=== PATIENT | female | born 1930 | race Caucasian/White ===

== ENCOUNTER 2019-07-30 12:34 | Inpatient (IN) ==
[2019-07-30] MEDS ORDERED: HYDROmorphone INJ 0.5 MG/0.5 ML SYR IV PRN (12:56)
[2019-07-30] MEDS ORDERED: fentaNYL citrate 100 MCG/2 ML VIAL IV STA (12:56)
[2019-07-30 13:26] LABS: Hematocrit (blood only) 35.7 % (37-47); Hemoglobin 11.9 g/dL (12.0-16.0); Mean Corpuscular Hemoglobin 31.1 pg (25-34); Mean Corpuscular Hgb Conc 33.3 g/dL (32-36); Mean Corpuscular Volume 93.2 fL (80-100); Mean Platelet Volume 11.3 fL (7.4-10.4); Platelet Count 152 K/uL (130-400); RDW Standard Deviation 47.8 fL (36.4-46.3); Red Blood Count 3.83 M/uL (4.2-5.4); White Blood Count 6.29 K/uL (4.8-10.8)
[2019-07-30 13:40] LABS: Partial Thromboplastin Time 27.1 Seconds (21.0-31.0); Prothrombin Time 10.7 Seconds (9.0-12.0)
[2019-07-30 13:43] LABS: BUN Creatinine Ratio 27.4 (10-20); Calcium 8.8 mg/dl (8.5-10.1); Creatinine Clr Calc Pharmacy 46.8 ml/min; Est GFR (Non-African American) 78.5; Potassium 3.9 mmol/L (3.5-5.1)
[2019-07-30 13:47] LABS: Basophils # (auto) 0.04 K/uL (0-0.2); Basophils % (auto) 0.6 %; Eosinophils # (auto) 0.35 K/uL (0-0.5); Eosinophils % (auto) 5.6 %; Immature Granulocytes # (auto) 0.05 K/uL (0.00-0.02); Immature Granulocytes % (auto) 0.8 %; Lymphocytes # (auto) 1.01 K/uL (1.2-3.4); Lymphocytes % (auto) 16.1 %; Monocytes # (auto) 0.61 K/uL (0.11-0.59); Monocytes % (auto) 9.7 %; Neutrophils # (auto) 4.23 K/uL (1.4-6.5); Neutrophils % (auto) 67.2 %
--- NOTE | 2019-07-30 14:15 | XRay Report ---
XR hip RT 2V w pelvis CLINICAL HISTORY: fall, right hip pain COMPARISON: None FINDINGS: Sacroiliac joints and symphysis pubis are intact. The bladder may be distended. Note is ma de of an acute displaced right femoral neck fracture, likely subcapital. No proximal left femoral fra cture is noted. No acute pelvic fracture is identified. IMPRESSION: Acute displaced right femoral neck fracture. ACT 112: Negative or not required by law. Electronically signed by: Cosme Roman M.D. 07/30/2019 2:13 PM
--- NOTE | 2019-07-30 14:16 | XRay Report ---
XR chest 1V portable CLINICAL HISTORY: fall, trauma COMPARISON STUDY: No previous studies for comparison. FINDINGS: Lung volumes are normal. Minimal right basilar opacity favors atelectasis. There is no pneu mothorax or pleural effusion. Cardiac size is normal. Mediastinal contours are normal. There is no ev idence for pulmonary edema. Patient is mildly rotated. IMPRESSION: No acute cardiopulmonary findings. ACT 112: Negative or not required by law. Electronically signed by: Cosme Roman M.D. 07/30/2019 2:15 PM
[2019-07-30 14:42] LABS: Appearance Urine Clear (Clear); Bacteria Urine Automated Negative (Negative); Bilirubin Urine Negative (Negative); Blood Urine Negative (Negative); Color Urine Dark Yellow; Epithelial Cell Urine Auto >30 /lpf (0-5); Glucose Urine UA Negative (Negative); Ketones Urine Negative (Negative); Leukocyte Esterase Urine 3+ (Negative); Nitrite Urine Negative (Negative); Protein Urine Negative (Negative); RBC Urine Automated 0-4 /hpf (0-4); Specific Gravity Urine 1.022 (1.000-1.030); Urobilinogen Urine Negative (Negative); WBC Urine Automated >30 /hpf (0-5)
[2019-07-30 15:09] LABS: Renal Epithelial Cells Urine 0-5 /lpf (0-5)
[2019-07-30] MEDS ORDERED: PNEUMOCOCCAL Polysaccharide Vaccine 25mcg/0.5mL vial/Syr IM ONE (15:45)
[2019-07-30] MEDS ORDERED: INFLUENZA Vaccine HIGH DOSE 65+yrs 0.5 mL Syr IM ONE (15:45)
--- NOTE | 2019-07-30 16:01 | History & Physical Report ---
Date of Service July 30, 2019 Assessment & Plan (1) Fracture of right hip: admit to med/surg hip fracture order set bed rest consult ortho - Dr. Sequeira - likely to go OR wednesday or wednesday SCD/TEDS -avoid chemical prophylaxis until surgical intervention date determined, recommend SQ heparin when appropriate APAP QID oxy IR 5mg q4hr prn mod pain/IV morphine 2mg q4hr severe pain incentive spirometry bed rest, MRSA swab, pre op antibiotics ordered NPO after midnight EKG, CXR and lab work reviewed pt w/o history of cardiac dz, + hx of HLD ECG reviewed and unchanged from prior ecg in 2017 no active c/o chest pain Pt is moderate risk for cardio-pulmonary complications andreia/post operatively given underlying dementia, advanced age no medical contraindication to proceed with orthopedic surgery anticipate perioperative/hospital delirium given underlying Alzheimer disorder, one:one observation ordered, Psych consulted for input re: behavioral disturbance Spoke to Antonio who wishes to be contacted from orthopedic surgeon to discuss intervention Cell No apparent advance directive or living will. Discussed code status with who wishes to maintain full code status (2) Major neurocognitive disorder due to Alzheimer's disease, probable, with behavioral disturbance: Recent admission 07/13 to 07/27 to [facility] secondary to Alzheimer's with behavioral disturbance Consult psych Continue Zyprexa, mirtazapine, trazodone IM Haldol 3 mg as needed for severe agitation and behavioral disturbance/combative behavior PRN Lorazepam as needed (3) Hyperlipidemia: on statin in outpt setting hold for now (4) Anxiety: prn lorazepam (5) Primary open angle glaucoma: continue eye gtts (6) DVT prophylaxis: SCD/TEDS Disposition: admit to med/surg, 1:1 ordered with psych precautions given recent admission to [facility] Follow up: PCP Dr. Alexandra upon discharge Pt was seen and examined in collaboration with Dr. Zapata, please see addendum History of Present Illness Chief Complaint: Referred from SNF secondary to complaints of hip pain and inability to transfer. Primary Care Provider: [facility] This is a 88-year-old female with significant past medical history of Alzheimer with behavioral disturbance, anxiety, hyperlipidemia, osteopenia, glaucoma, history of breast CA status post mastectomy who presents to ED from SNF secondary to inability to transfer and complaints of right lower extremity pain. Of significance patient recently hospitalized at [facility] from 07/13 to 07/27 secondary to worsening dementia and combative behavior disturbance. On 07/27/19 she was then transferred to [facility]. Unable to obtain ROS from patient given dementia. According to [facility] there is no noted incident report of fall and facility is unaware of when fracture may have taken place. There is no known fall or hitting of head. According to facility they were having difficulty transferring patient this morning, increased agitation complains of pain and a notable leg length discrepancy with rotation of right leg. She was then referred to ED for further evaluation. In ED right hip x-ray revealed acute displaced right femoral neck fracture. Chest x-ray was negative for any notable abnormality. Further lab work significant for H&H 11.9 and 35.7, WBC 6.29, platelet 152, BUN 18, creatinine 0.67, glucose 110, urinalysis concentrated, +3 leukocyte esterase, negative bacteria. She received IV Dilaudid and fentanyl for pain control. Discussed case with ED provider Dr. Gomes along with orthopedics Dr. Sequeira. Reviewed records in [facility]. Allergies Allergy/AdvReac Type Severity Reaction Status Date / Time alendronate sodium Allergy Unknown Verified 07/30/19 14:46 ibuprofen Allergy Unknown Verified 07/30/19 14:46 simvastatin [From Zocor] Allergy Unknown Verified 07/30/19 14:46 pravastatin [From Pravachol] AdvReac Unknown Verified 07/30/19 14:46 rosuvastatin [From Crestor] AdvReac Unknown Verified 07/30/19 14:46 Home Medications Home Medications Medication Instructions Recorded Confirmed Type acetaminophen [Tylenol] 325 mg PO Q6H PRN 07/30/19 07/30/19 History atorvastatin 10 mg PO HS 07/30/19 07/30/19 History bisacodyl [Dulcolax (bisacodyl)] 10 mg MA DAILY PRN 07/30/19 07/30/19 History latanoprost 1 drp OPB HS 07/30/19 07/30/19 History lorazepam 0.5 mg PO Q6H PRN 07/30/19 07/30/19 History magnesium hydroxide [Milk of 30 ml PO DAILY PRN 07/30/19 07/30/19 History Magnesia] mirtazapine 7.5 mg PO HS 07/30/19 07/30/19 History nabumetone 500 mg PO Q12H PRN 07/30/19 07/30/19 History olanzapine 5 mg PO HS 07/30/19 07/30/19 History olanzapine [Zyprexa] 2.5 mg PO QAM 07/30/19 07/30/19 History sodium phosphates [Enema] 118 ml MA DAILY PRN 07/30/19 07/30/19 History trazodone 50 mg PO HS 07/30/19 07/30/19 History Past Med/Surg History Medical History (Updated 07/30/19 @ 16:12 by Tiesha Le PA-C) Anxiety History of cancer of left breast 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 Hyperlipidemia Major neurocognitive disorder due to Alzheimer's disease, probable, with behavioral disturbance Osteopenia Primary open angle glaucoma Surgical History (Updated 07/30/19 @ 15:52 by Tiesha Le PA-C) History of bilateral mastectomy History of cataract extraction History of tonsillectomy and adenoidectomy History of total abdominal hysterectomy and bilateral salpingo-oophorectomy Family History Other Colorectal cancer Coronary heart disease Social History (Updated 07/30/19 @ 15:56 by Tiesha Le PA-C) Preferred Language: Serbian Communication Ability: Impaired Beliefs That Will Affect Care: None marital status: Current Living Situation: [facility] Current Living Situation Comment: [facility] - new resident as of 07/27/19 - no longer able to care Other Information That Helps Us Care for You: No Feels Safe at Home: Yes Smoking Status: Unknown if ever smoked Hx Alcohol Use: No Hx Substance Use: No Review of Systems Review of Systems: All systems reviewed & are unremarkable except as noted in HPI & below Physical Exam Physical Exam: Constitutional: Thin, petite, elderly, female, very agitated, does not answer questions appropriately, vitals as above, Head: Normocephalic, Atraumatic Eyes: PERRL, conjunctivae normal, anicteric sclerae ENMT: external ear and nose normal, oropharynx normal Neck: trachea midline, no thyromegaly normal visual inspection Respiratory: Poor respiratory effort secondary to patient not following c ommands, lungs clear to auscultation, no wheeze, rales, rhonchi. no accessory muscle use Cardiovascular: Tachycardic rate, regular rhythm, no murmur, no edema Vessels: no JVD or carotid bruit Chest: normal inspection of chest Abdomen: normal bowel sounds, soft, nontender, no hepatosplenomegaly, positive ventral abdominal scar Musculoskeletal: no cyanosis or clubbing, right lower extremity shortened, externally rotated, unable to move right lower extremity, active range of motion to bilateral upper extremities and left lower extremity Skin: no rashes, warm and dry normal turgor Neurologic: PERRL, EOMI, accommodation nl, no face palsy, no dysarthria CN's II-XI intact bilaterally and moves all extremities Psychiatric: A+O to self only, euthymic affect Lymphatic: no cervical or axillary lymphadenopathy : deferred Results & Data Vital Signs (Past 12 Hours) Vital Signs Temp Pulse Resp BP Pulse Ox 07/30/19 15:31 105 H 24 99/71 L 95 07/30/19 15:26 108 H 26 H 137/63 94 07/30/19 14:30 117 H 21 07/30/19 14:01 112 H 25 H 128/53 L 94 07/30/19 14:00 126 H 22 95 07/30/19 13:31 99 H 23 94 07/30/19 13:30 106 H 20 128/43 L 95 07/30/19 13:01 103 H 20 93 07/30/19 13:00 110 H 20 119/69 94 07/30/19 12:48 102 H 22 94 07/30/19 12:40 36.4 C L 110 H 19 154/65 H 95 07/30/19 12:37 111 H 24 154/65 H 94 Laboratory Results Short CBC 07/30/19 Range/Units 13:16 WBC 6.29 (4.8-10.8) K/uL Hgb 11.9 L (12.0-16.0) g/dL Hct 35.7 L (37-47) % Plt Count 152 (130-400) K/uL BMP 07/30/19 13:16 Sodium 138 Potassium 3.9 Chloride 104 Carbon Dioxide 29 BUN 18 Creatinine 0.67 Glucose 110 H Calcium 8.8 Urine 07/30/19 Range/Units 14:17 Urine Color Dark Yellow Urine Appearance Clear (Clear) Urine pH 6.0 (4.5-7.5) Ur Specific [place] 1.022 (1.000-1.030) Urine Protein Negative (Negative) Urine Glucose (UA) Negative (Negative) Diagnostic Findings Hip/pelvis XR: FINDINGS: Sacroiliac joints and symphysis pubis are intact. The bladder may be distended. Note is made of an acute displaced right femoral neck fracture, likely subcapital. No proximal left femoral fracture is noted. No acute pelvic fracture is identified. IMPRESSION: Acute displaced right femoral neck fracture. CXR: IMPRESSION: No acute cardiopulmonary findings. Knee Xray: IMPRESSION: 1. No acute fracture or joint effusion of the right knee. 2. Moderate right knee osteoarthritis Medications Administered Discontinued Medications Fentanyl Citrate (Fentanyl Citrate) 50 mcg IV NOW STA Stop: 07/30/19 12:57 Last Admin: 07/30/19 13:16 Dose: 50 mcg Documented by: [id number] ECG Rate (beats per minute): 96 Rhythm: normal sinus Findings: + 1st degree AV block and + RBBB Comparison ECG Date: from Change: no significant change (01/22/17) Code Status & VTE Plan Code Status Full Code Discussed with VTE Prophylaxis Plan VTE Prophylaxis will be ordered: Yes Supervising Physician Co-Signing Physician Notes Attending Addendum: care coordinated with JOSE Walters please refer to her notes for full details, I agree with her notes patient seen and examined, records reviewed by myself as well on exam, patient seen resting in bed, seen at the bedside for one-to-one observation Awake, alert, irritable, not oriented Speaking with no effort or accessory muscle use Patient is very confused, disorganized thinking Denies pain or any other pain in her body Denies any other symptoms Adamantly refuses to have physical examination performed even with the help of the RECEIVING ROOM CLERK, after multiple times with patient became increasingly angry and threatening no other symptoms VS noted and reviewed oriented x0 , not in distress, speaks in sentences with no effort nor accessory muscle use Patient declined physical exam Abdomen non distended Right lower extremity externally rotated no bipedal edema, erythema Awake, alert, not oriented, no gross focal neurologic deficits otherwise WBC 6.2 Hg 11.9 Crea 0.67 Hip x-ray: IMPRESSION: Acute displaced right femoral neck fracture. ASSESSMENT AND PLAN RIGHT FEMORAL NECK FRACTURE Unknown mechanism leading to fracture Patient hemodynamically stable At least moderate risk for cardiopulmonary complications perioperatively given Alzheimer's dementia, advanced age No medical contraindication to proceed with orthopedic surgery ALZHEIMER'S DEMENTIA Continue usual psych medications Anticipate possible worsening of confusion while admitted Will order outpatient psychiatry consultation [id number] disturbance other diagnoses and plan of care as per JOSE Walters's notes Nitish Zapata MD
--- NOTE | 2019-07-30 16:09 | XRay Report ---
XR knee RT 1 or 2V routine CLINICAL HISTORY: Fall. Right knee pain. COMPARISON: None FINDINGS: Alignment of the right knee is anatomic. No fracture within the distal right tibia, proxim al right fibula or proximal right tibia is noted. There is no joint effusion. There is moderate right knee osteoarthrosis, most pronounced within the lateral compartment. There is mild chondrocalcinosis . IMPRESSION: 1. No acute fracture or joint effusion of the right knee. 2. Moderate right knee osteoarthritis. ACT 112: Negative or not required by law. Electronically signed by: Cosme Roman M.D. 07/30/2019 4:07 PM
[2019-07-30] MEDS ORDERED: HALOPERIDOL LACTATE 5 MG/ML 1 ML VIAL IM PRN (17:38)
[2019-07-30] MEDS ORDERED: NALOXONE HCL 0.4 MG/1 ML VIAL/CARP IV PRN (17:38)
[2019-07-30] MEDS ORDERED: MoRPHine SULFATE 2 MG/ML CARP IV PRN (17:38)
[2019-07-30] MEDS ORDERED: bisacodyL 10 MG SUPP PR PRN (17:38)
[2019-07-30] MEDS ORDERED: MAGNESIUM HYDROXIDE SUSP 30 ML UDC PO PRN (17:38)
[2019-07-30] MEDS ORDERED: OXYCODONE HCL IR 5 MG TAB (IMMEDIATE RELEASE) PO PRN (17:38)
[2019-07-30] MEDS ORDERED: LORazepam 0.5 MG TAB PO PRN (17:38)
[2019-07-30] MEDS ORDERED: ONDANSETRON INJ 2 MG/ML 2 ML VIAL IV PRN (17:38)
--- NOTE | 2019-07-30 18:02 | Emergency Department Note ---
Entered by Rosangela Rasmussen acting as a scribe for ED Provider Note Name: YULI LONG Age: 88 Arrives Via: Ambulance Informant: Patient CC: Hip pain HPI: 88F arrives for evaluation of hip pain. She was brought to the ED via EMS from the [facility]. She fell and staff at the [facility] think she broke her right hip. She is demented and denies any symptoms. She is unhappy she is here though does not know where she is. No medications prior to arrival. Patient with report "hairline" fracture of hip previously. She reportedly did not strike head nor injury other. ROS: See above HPI for pertinent positives & negatives. Patient demented and unable to give adequate ROS Past Medical History:Anxiety, Dementia/Alzheimer's, DLP, Glaucoma Past Surgical History:Unknown due to dementia Family History:Unknown due to dementia Social History:Lives in intermediate, no etoh/smoking, retired, no further available Home Medications:See Below Allergies:See Below Vitals:BP is 154/65, Pulse is 110, R 16, O2 94%, Temperature is 97.5 Physical Exam: GENERAL: Patient is demented, angry, fighting against examination. EYES: No scleral icterus, unremarkable pupils. ENT: Mucous membranes moist, no nasal congestion. NECK: No masses appreciated, nomeningismus, trachea is midline. RESPIRATORY: No dyspnea. Clear to auscultation and equal bilaterally. No wheeze, no rhonchi. CARDIOVASCULAR: Regular rate and rhythm.No murmurs, rubs, gallops appreciated. GASTROINTESTINAL: Abdomen soft, non-tender, no peritonitis.Bowel sounds positive.No masses appreciated. BACK: No midline tenderness, no CVA tenderness EXTREMITIES: Right leg is shortened and externally rotated, severe pain with ROM of the right hip, pulses intact. NEUROLOGIC: Alert and oriented, no acute motor or sensory deficits, no focal weakness, cranial nerves grossly intact. SKIN: No rash, no jaundice, no diaphoresis. ED Course: Prior Medical Record, Triage/Nursing Notes, Medications, Allergies reviewed by Me Vital Signs: reviewed and remarkable for Tachy Labs:Reviewed and remarkable for no significant abnormalities Interventions: saline lock, fentanyl 50mcg IV Imaging:See Below EKG: Per My Interpretation: Indication Pre-Op: NSR 98 bpm with 1st av block, qtc 464. No Ectopy. No Ischemia. RBBB noted. No previous for comparison. Reassessments/Times: 1252: The patient was evaluated in room C4. A complete history and physical were performed. 1431: I discussed the patients case with Tiesha Le PA-C, [facility] Hospitalist. The patient will be further evaluated. The admitting physician is Dr. Zapata. Blood pressure:Low Disposition:Further evaluation by hospitalist. Prescriptions:None. Differentials: Etiologies such as fracture, dislocation, neurovascular compromise, compartment syndrome, soft tissue injury, as well as others were entertained. Medical Decision Makin yr old female arrives for evaluation of right hip injury s/p fall at intermediate. No report of head neck injury nor LOC. She is demented and angry but feeling better after Fentanyl. Imaging with right hip fracture. Labs unremarkable. EKG with RBBB and 1st av block though no previous for comparison. She is in no distress after fentanyl and not moving leg. She will come in to hospitalists who will consult Ortho. Impression: Right hip fracture Combative behavior Dementia. The scribe's documentation has been prepared under my direction and personally reviewed by me in its entirety. I confirm that the note above accurately reflects all work, treatment, procedures, and medical decision making performed by me. 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 Hyperlipidemia Major neurocognitive disorder due to Alzheimer's disease, probable, with behavioral disturbance Osteopenia Primary open angle glaucoma Surgical History (Updated 07/30/19 @ 15:52 by Tiesha Le PA-C) History of bilateral mastectomy History of cataract extraction History of tonsillectomy and adenoidectomy History of total abdominal hysterectomy and bilateral salpingo-oophorectomy Family History Other Colorectal cancer Coronary heart disease Social History (Updated 07/30/19 @ 15:56 by Tiesha Le PA-C) Preferred Language: Salvadorean Communication Ability: Impaired Beliefs That Will Affect Care: None marital status: Current Living Situation: [facility] Current Living Situation Comment: [facility] - new resident as of 07/27/19 - no longer able to care Other Information That Helps Us Care for You: No Feels Safe at Home: Yes Smoking Status: Unknown if ever smoked Hx Alcohol Use: No Hx Substance Use: No Results & Data Vital Signs Vital Signs - 24 hr 07/30/19 12:37 07/30/19 12:40 07/30/19 12:48 Temperature 36.4 C L Temperature Source Oral Pulse Rate 111 H 110 H 102 H Pulse Rate from SpO2 Sensor 112 H 103 H Pulse Rhythm Regular Pulse Strength Normal Respiratory Rate 24 19 22 Respiratory Effort / Characteristics Non-Labored Respiratory Depth Normal Respiratory Pattern Regular Blood Pressure 154/65 H 154/65 H Blood Pressure Mean 91 94 Blood Pressure Position Sitting Pulse Oximetry 94 95 94 Oxygen Delivery Method Room Air Sepsis Recent Fever Within 48 Hours No Sepsis Action Taken by Nursing No Action Required 07/30/19 13:00 07/30/19 13:01 07/30/19 13:30 Temperature Temperature Source Pulse Rate 110 H 103 H 106 H Pulse Rate from SpO2 Sensor 110 H 103 H 106 H Pulse Rhythm Pulse Strength Respiratory Rate 20 20 20 Respiratory Effort / Characteristics Respiratory Depth Respiratory Pattern Blood Pressure 119/69 128/43 L Blood Pressure Mean 75 79 Blood Pressure Position Pulse Oximetry 94 93 95 Oxygen Delivery Method Sepsis Recent Fever Within 48 Hours Sepsis Action Taken by Nursing 07/30/19 13:31 07/30/19 14:00 07/30/19 14:01 Temperature Temperature Source Pulse Rate 99 H 126 H 112 H Pulse Rate from SpO2 Sensor 101 H 106 H 109 H Pulse Rhythm Pulse Strength Respiratory Rate 23 22 25 H Respiratory Effort / Characteristics Respiratory Depth Respiratory Pattern Blood Pressure 128/53 L Blood Pressure Mean 71 Blood Pressure Position Pulse Oximetry 94 95 94 Oxygen Delivery Method Sepsis Recent Fever Within 48 Hours Sepsis Action Taken by Nursing 07/30/19 14:30 07/30/19 15:26 07/30/19 15:31 Temperature Temperature Source Pulse Rate 117 H 108 H 105 H Pulse Rate from SpO2 Sensor 110 H 107 H 105 H Pulse Rhythm Pulse Strength Respiratory Rate 21 26 H 24 Respiratory Effort / Characteristics Respiratory Depth Respiratory Pattern Blood Pressure 137/63 99/71 L Blood Pressure Mean 91 76 Blood Pressure Position Pulse Oximetry 94 95 Oxygen Delivery Method Room Air Room Air Sepsis Recent Fever Within 48 Hours Sepsis Action Taken by [facility] Medications Current Medication List: was personally reviewed by me Laboratory Data Attestation: I reviewed the patient's lab results. Result diagrams: 07/30/19 13:16 07/30/19 13:16 Lab Results 07/30/19 07/30/19 07/30/19 Range/Units 13:16 13:16 13:16 WBC 6.29 (4.8-10.8) K/uL RBC 3.83 L (4.2-5.4) M/uL Hgb 11.9 L (12.0-16.0) g/dL Hct 35.7 L (37-47) % MCV 93.2 (80-100) fL MCH 31.1 (25-34) pg MCHC 33.3 (32-36) g/dL RDW Std Deviation 47.8 H (36.4-46.3) fL RDW Coeff of Peggy 14.0 (11.5-14.5) % Plt Count 152 (130-400) K/uL MPV 11.3 H (7.4-10.4) fL Immature Gran % (Auto) 0.8 % Neut % (Auto) 67.2 % Lymph % (Auto) 16.1 % [place] % (Auto) 9.7 % Eos % (Auto) 5.6 % Baso % (Auto) 0.6 % Immature Gran # (Auto) 0.05 H (0.00-0.02) K/uL Neut # (Auto) 4.23 (1.4-6.5) K/uL Lymph # (Auto) 1.01 L (1.2-3.4) K/uL [place] # (Auto) 0.61 H (0.11-0.59) K/uL Eos # (Auto) 0.35 (0-0.5) K/uL Baso # (Auto) 0.04 (0-0.2) K/uL PT 10.7 (9.0-12.0) Seconds INR 1.0 (0.9-1.1) APTT 27.1 (21.0-31.0) Seconds PTT Ratio 1.0 Sodium 138 (136-145) mmol/L Potassium 3.9 (3.5-5.1) mmol/L Chloride 104 (98-107) mmol/L Carbon Dioxide 29 (21-32) mmol/L Anion Gap 5.0 (3-11) BUN 18 (7-18) mg/dl Creatinine 0.67 (0.6-1.2) mg/dl Est Cr Clr Drug Dosing 46.8 ml/min Est GFR ( Amer) 91.0 Est GFR (Non-Af Amer) 78.5 BUN/Creatinine Ratio 27.4 H (10-20) Glucose 110 H (70-99) mg/dl Calcium 8.8 (8.5-10.1) mg/dl Urine Color Urine Appearance (Clear) Urine pH (4.5-7.5) Ur Specific [place] (1.000-1.030) Urine Protein (Negative) Urine Glucose (UA) (Negative) Urine Ketones (Negative) Urine Blood (Negative) Urine Nitrite (Negative) Urine Bilirubin (Negative) Urine Urobilinogen (Negative) Ur Leukocyte Esterase (Negative) Urine WBC (Auto) (0-5) /hpf Urine RBC (Auto) (0-4) /hpf U Hyaline Cast (Auto) (0-5) /lpf U Epithel Cells (Auto) (0-5) /lpf Urine Bacteria (Auto) (Negative) Ur Renal Epithelial Cell (0-5) /lpf Blood Type Antibody Screen 07/30/19 07/30/19 07/30/19 Range/Units 13:53 14:17 14:37 WBC (4.8-10.8) K/uL RBC (4.2-5.4) M/uL Hgb (12.0-16.0) g/dL Hct (37-47) % MCV (80-100) fL MCH (25-34) pg MCHC (32-36) g/dL RDW Std Deviation (36.4-46.3) fL RDW Coeff of Peggy (11.5-14.5) % Plt Count (130-400) K/uL MPV (7.4-10.4) fL Immature Gran % (Auto) % Neut % (Auto) % Lymph % (Auto) % [place] % (Auto) % Eos % (Auto) % Baso % (Auto) % Immature Gran # (Auto) (0.00-0.02) K/uL Neut # (Auto) (1.4-6.5) K/uL Lymph # (Auto) (1.2-3.4) K/uL [place] # (Auto) (0.11-0.59) K/uL Eos # (Auto) (0-0.5) K/uL Baso # (Auto) (0-0.2) K/uL PT (9.0-12.0) Seconds INR (0.9-1.1) APTT (21.0-31.0) Seconds PTT Ratio Sodium (136-145) mmol/L Potassium (3.5-5.1) mmol/L Chloride (98-107) mmol/L Carbon Dioxide (21-32) mmol/L Anion Gap (3-11) BUN (7-18) mg/dl Creatinine (0.6-1.2) mg/dl Est Cr Clr Drug Dosing ml/min Est GFR ( Amer) Est GFR (Non-Af Amer) BUN/Creatinine Ratio (10-20) Glucose (70-99) mg/dl Calcium (8.5-10.1) mg/dl Urine Color Dark Yellow Urine Appearance Clear (Clear) Urine pH 6.0 (4.5-7.5) Ur Specific [place] 1.022 (1.000-1.030) Urine Protein Negative (Negative) Urine Glucose (UA) Negative (Negative) Urine Ketones Negative (Negative) Urine Blood Negative (Negative) Urine Nitrite Negative (Negative) Urine Bilirubin Negative (Negative) Urine Urobilinogen Negative (Negative) Ur Leukocyte Esterase 3+ H (Negative) Urine WBC (Auto) >30 H (0-5) /hpf Urine RBC (Auto) 0-4 (0-4) /hpf U Hyaline Cast (Auto) 1-5 (0-5) /lpf U Epithel Cells (Auto) >30 H (0-5) /lpf Urine Bacteria (Auto) Negative (Negative) Ur Renal Epithelial Cell 0-5 (0-5) /lpf Blood Type Cancelled O Positive Antibody Screen Cancelled NEGATIVE Administered Medications Discontinued Medications Fentanyl Citrate (Fentanyl Citrate) 50 mcg IV NOW STA Stop: 07/30/19 12:57 Last Admin: 07/30/19 13:16 Dose: 50 mcg Documented by: [id number] Imaging Data Radiologist's Impression: Radiology results as stated below per my review and the radiologist's interpretation: XR hip RT 2V w pelvis CLINICAL HISTORY: fall, right hip pain COMPARISON: None FINDINGS: Sacroiliac joints and symphysis pubis are intact. The bladder may be distended. Note is made of an acute displaced right femoral neck fracture, likely subcapital. No proximal left femoral fracture is noted. No acute pelvic fracture is identified. IMPRESSION: Acute displaced right femoral neck fracture. ACT 112: Negative or not required by law. Electronically signed by: Cosme Roman M.D. 07/30/2019 2:13 PM XR chest 1V portable CLINICAL HISTORY: fall, trauma COMPARISON STUDY: No previous studies for comparison. FINDINGS: Lung volumes are normal. Minimal right basilar opacity favors atelectasis. There is no pneumothorax or pleural effusion. Cardiac size is normal. Mediastinal contours are normal. There is no evidence for pulmonary edema. Patient is mildly rotated. IMPRESSION: No acute cardiopulmonary findings. ACT 112: Negative or not required by law. Electronically signed by: Cosme Roman M.D. 07/30/2019 2:15 PM Blood Pressure Blood Pressure Findings: Low blood pressure Discharge Plan Visit Data *Final* Discharge Date/Time: 07/30/19 17:06 Chief Complaint: Hip Pain Stated Complaint: L hip & leg pain ED Provider: Will Augustine Discharge Problem: Fracture of right hip, Combative behavior, Dementia Patient Disposition: Admitted As Inpatient Discharge Instructions Interventions: ED Discharge Assessment Last Done: 07/30/19 17:06 The scribe's documentation has been prepared under my direction and personally reviewed by me in its entirety. I confirm that the note above accurately reflects all work, treatment, procedures, and medical decision making performed by me.
[2019-07-30] MEDS: LACTATED RINGER'S 1,000 ML IV SCH (18:48)
[2019-07-30] MEDS: ACETAMINOPHEN 325 MG TAB PO SCH ×2 (18:49→21:35)
[2019-07-30] MEDS: TRAZODONE HCL 50 MG TAB PO SCH (21:35)
[2019-07-30] MEDS: MIRTAZAPINE TAB 15 MG TAB PO SCH (21:36)
[2019-07-30] MEDS: DOCUSATE SODIUM/SENNA 50/8.6MG TAB PO SCH (21:36)
[2019-07-30] MEDS: LATANOPROST 0.005% OP SOLN 2.5 ML BTL OPB SCH (21:37)
[2019-07-30] MEDS: OLANZapine 5 MG TABLET PO SCH (21:37)
[2019-07-31 05:47] LABS: Basophils # (auto) 0.03 K/uL (0-0.2); Basophils % (auto) 0.6 %; Eosinophils # (auto) 0.29 K/uL (0-0.5); Eosinophils % (auto) 5.6 %; Hematocrit (blood only) 32.8 % (37-47); Hemoglobin 10.7 g/dL (12.0-16.0); Immature Granulocytes # (auto) 0.06 K/uL (0.00-0.02); Immature Granulocytes % (auto) 1.2 %; Lymphocytes # (auto) 0.84 K/uL (1.2-3.4); Lymphocytes % (auto) 16.2 %; Mean Corpuscular Hemoglobin 30.8 pg (25-34); Mean Corpuscular Hgb Conc 32.6 g/dL (32-36); Mean Corpuscular Volume 94.5 fL (80-100); Mean Platelet Volume 11.2 fL (7.4-10.4); Monocytes % (auto) 13.5 %; Neutrophils # (auto) 3.27 K/uL (1.4-6.5); Neutrophils % (auto) 62.9 %; Platelet Count 160 K/uL (130-400); RDW Coefficient of Variation 13.9 % (11.5-14.5); RDW Standard Deviation 47.7 fL (36.4-46.3); Red Blood Count 3.47 M/uL (4.2-5.4); White Blood Count 5.19 K/uL (4.8-10.8)
[2019-07-31] MEDS ORDERED: CEFAZOLIN 2000MG 2,000 MG/15 ML SYR IV SCH (06:00)
[2019-07-31 06:16] LABS: BUN Creatinine Ratio 44.4 (10-20); Calcium 8.6 mg/dl (8.5-10.1); Creatinine Clr Calc Pharmacy 53.2 ml/min; Est GFR (African American) 94.8; Est GFR (Non-African American) 81.8; Potassium 3.4 mmol/L (3.5-5.1)
[2019-07-31] MEDS: LACTATED RINGER'S 1,000 ML IV SCH ×2 (10:41→22:34)
[2019-07-31] MEDS: ACETAMINOPHEN 325 MG TAB PO SCH ×4 (10:42→23:11)
[2019-07-31] MEDS: OLANZAPINE 2.5 MG TAB PO SCH (10:42)
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
[2019-07-31] MEDS ORDERED: ATROPINE SULFATE 0.1 MG/ML 10ML SYR IV PRN (16:33)
[2019-07-31] MEDS ORDERED: fentaNYL citrate 100 MCG/2 ML VIAL IV PRN (16:33)
[2019-07-31] MEDS ORDERED: ONDANSETRON INJ 2 MG/ML 2 ML VIAL IV PRN (16:33)
[2019-07-31] MEDS ORDERED: ePHEDrine sulfate 50 MG/ML AMP IV PRN (16:33)
--- NOTE | 2019-07-31 16:37 | Anesthesiology Consultation ---
Date of Service July 31, 2019 Assessment & Plan (1) Encounter for pre-operative examination: Chart Review Chart Review: Acceptable Risk for Surgery and Patient NOT seen in Pre Admission Testing Consults Requested none History Surgery Operation Date: 07/31/19 14:00 Proposed Procedures p Right Hip Hemiarthroplasty - Pedro Sequeira DO Height/Weight Height: 5 ft 3 in Weight: 51.1 kg Allergies Allergy/AdvReac Type Severity Reaction Status Date / Time alendronate sodium Allergy Unknown Verified 07/30/19 14:46 ibuprofen Allergy Unknown Verified 07/30/19 14:46 simvastatin [From Zocor] Allergy Unknown Verified 07/30/19 14:46 pravastatin [From Pravachol] AdvReac Unknown Verified 07/30/19 14:46 rosuvastatin [From Crestor] AdvReac Unknown Verified 07/30/19 14:46 Medications Home Medications Medication Instructions Recorded Confirmed Last Taken acetaminophen [Tylenol] 325 mg PO Q6H PRN 07/30/19 07/30/19 07/30/19 10:00 atorvastatin 10 mg PO HS 07/30/19 07/31/19 07/29/19 21:00 bisacodyl [Dulcolax (bisacodyl)] 10 mg [place] DAILY PRN 07/30/19 07/30/19 07/29/19 16:30 latanoprost 1 drp OPB HS 07/30/19 07/31/19 07/29/19 21:00 lorazepam 0.5 mg PO Q6H PRN 07/30/19 07/31/19 Unknown magnesium hydroxide [Milk of 30 ml PO DAILY PRN 07/30/19 07/31/19 07/29/19 08:45 Magnesia] mirtazapine 7.5 mg PO HS 07/30/19 07/31/19 07/29/19 20:00 nabumetone 500 mg PO Q12H PRN 07/30/19 07/31/19 07/30/19 09:15 olanzapine 5 mg PO HS 07/30/19 07/31/19 Unknown olanzapine [Zyprexa] 2.5 mg PO QAM 07/30/19 07/31/19 07/30/19 09:00 2.5mg sodium phosphates [Enema] 118 ml [place] DAILY PRN 07/30/19 07/30/19 07/30/19 10:23 trazodone 50 mg PO HS 07/30/19 07/31/19 07/29/19 20:00 Active Medications Generic Name Dose Route Start Last Admin Trade Name Fabian PRN Reason Stop Dose Admin Acetaminophen 650 mg 07/30/19 17:38 07/31/19 17:52 Tylenol PO 08/29/19 17:37 650 mg QID [facility] Administration Lactated Ringer's 1,000 mls @ 100 mls/hr 07/30/19 15:32 07/31/19 15:00 Lr IV 08/29/19 15:31 100 mls/hr .Q10H [facility] Infusion Latanoprost 1 drops 07/30/19 21:00 07/30/19 21:37 Xalatan Oph OPB 08/29/19 20:59 1 drops HS [facility] Administration Mirtazapine 7.5 mg 07/30/19 21:00 07/30/19 21:36 Remeron PO 08/29/19 20:59 7.5 mg HS STORMY Administration Olanzapine 2.5 mg 07/31/19 09:00 07/31/19 10:42 Zyprexa PO 08/30/19 08:59 2.5 mg QAM STORMY Administration Olanzapine 5 mg 07/30/19 21:00 07/30/19 21:37 Zyprexa PO 08/29/19 20:59 5 mg HS STORMY Administration Senna/Docusate Sodium 2 tab 07/30/19 21:00 07/30/19 21:36 Senokot S PO 08/29/19 20:59 2 tab HS ST[facility]MY Administration Trazodone HCl 50 mg 07/30/19 21:00 07/30/19 21:35 Desyrel PO 08/29/19 20:59 50 mg HS ST[facility]MY Administration Past Medical History Medical History Anxiety History of cancer of left breast 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 Hyperlipidemia Major neurocognitive disorder due to Alzheimer's disease, probable, with behavioral disturbance Osteopenia Primary open angle glaucoma Exercise / Class Metabolic Activity III < 4 Walking/Shop/Light housework Past Family History Family History Other Colorectal cancer Coronary heart disease Past Surgical History Surgical History History of bilateral mastectomy History of cataract extraction History of tonsillectomy and adenoidectomy History of total abdominal hysterectomy and bilateral salpingo-oophorectomy Past Anesthesia History No Hx of Anesthesia Complications and No Family Hx of Anesthesia Complications History of PONV No Hx of PONV and No Hx of Motion Sickness Social History Smoking Status: Unknown if ever smoked Do You Dip or Chew Tobacco: No Hx Alcohol Use: No Hx Substance Use: No Physical Exam Vital Signs Last Vital Signs Temp 37.3 C 07/31/19 18:13 Pulse 98 H 07/31/19 18:13 Resp 25 H 07/31/19 18:13 BP 124/48 L 07/31/19 18:13 Pulse Ox 93 07/31/19 18:13 Testing Laboratory Results 07/31/19 05:24 07/31/19 05:24 PT 10.7 Seconds (9.0-12.0) 07/30/19 13:16 INR 1.0 (0.9-1.1) 07/30/19 13:16 APTT 27.1 Seconds (21.0-31.0) 07/30/19 13:16 Urine Color Dark Yellow 07/30/19 14:17 Urine Appearance Clear (Clear) 07/30/19 14:17 Urine pH 6.0 (4.5-7.5) 07/30/19 14:17 Ur Specific [place] 1.022 (1.000-1.030) 07/30/19 14:17 Urine Protein Negative (Negative) 07/30/19 14:17 Urine Glucose (UA) Negative (Negative) 07/30/19 14:17 Urine Ketones Negative (Negative) 07/30/19 14:17 Urine Nitrite Negative (Negative) 07/30/19 14:17 Ur Leukocyte Esterase 3+ (Negative) H 07/30/19 14:17 Urine WBC (Auto) >30 /hpf (0-5) H 07/30/19 14:17 Urine RBC (Auto) 0-4 /hpf (0-4) 07/30/19 14:17 U Hyaline Cast (Auto) 1-5 /lpf (0-5) 07/30/19 14:17 U Epithel Cells (Auto) >30 /lpf (0-5) H 07/30/19 14:17 Urine Bacteria (Auto) Negative (Negative) 07/30/19 14:17 Blood Type O Positive 07/30/19 14:37 Antibody Screen NEGATIVE 07/30/19 14:37 07/30/19 14:17 Urine Culture - Preliminary Urine,Indwelling Cath Gram negative bacilli Electrocardiogram Findings: + NSR @ (98) Sinus rhythm with 1st degree A-V block Right bundle branch block Abnormal ECG When compared with ECG of 30-JUL-2019 13:10, (unconfirmed) T wave inversion less evident in Anterior leads Chest X-Ray Date: 07/30/19 XR chest 1V portable CLINICAL HISTORY: fall, trauma COMPARISON STUDY: No previous studies for comparison. FINDINGS: Lung volumes are normal. Minimal right basilar opacity favors atelectasis. There is no pneumothorax or pleural effusion. Cardiac size is normal. Mediastinal contours are normal. There is no evidence for pulmonary edema. Patient is mildly rotated. IMPRESSION: No acute cardiopulmonary findings.
--- NOTE | 2019-07-31 17:05 | Hospitalist Progress Note ---
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 Sequeira -awaiting recommendations Heparin subcu twice daily, SCDs for DVT prophylaxis Pt is moderate risk for cardio-pulmonary complications andreia/post operatively given underlying dementia, advanced age no medical contraindication to proceed with orthopedic surgery anticipate perioperative/hospital delirium given underlying Alzheimer disorder, one:one observation ordered, Psych consulted for input re: behavioral disturbance Discussed with patient's Antonio who wishes to be contacted from orthopedic surgeon to discuss intervention Cell No apparent advance directive or living will. Discussed code status with who wishes to maintain full code status (2) Major neurocognitive disorder due to Alzheimer's disease, probable, with behavioral disturbance: Recent admission 07/13 to 07/27 to [facility] secondary to Alzheimer's with behavioral disturbance Consulted psych Continue Zyprexa, mirtazapine, trazodone IM Haldol 3 mg as needed for severe agitation and behavioral disturbance/combative behavior PRN Lorazepam as needed --Calm, cooperative this afternoon, at baseline mental status per patient's (3) Hyperlipidemia: on statin in outpt setting hold for now (4) Anxiety: prn lorazepam (5) Primary open angle glaucoma: continue eye gtts (6) DVT prophylaxis: SCD/TEDS Disposition: admit to med/surg, 1:1 ordered with psych precautions given recent admission to [facility] Follow up: PCP Dr. Alexandra upon discharge Subjective ff up for right femoral fracture Seen with patient's at the bedside, visiting Alert, awake, sitting up in bed, calm and cooperative Pleasantly confused but does know she is at [employer] and can state her 's name Does not recall any recent injury Denies hip pain or any pain in her body Denies chest pain, shortness of breath, palpitations, dizziness, even outside hospital No other symptoms Review of Systems Review of Systems: All systems reviewed & are unremarkable except as noted in HPI & below Physical Exam Physical Exam: General- oriented x 1, not in distress, speaks in sentences with no effort or accessory muscle use Eyes- anicteric Neck- no JVD Lungs- clear breath sounds bilaterally, no rales/wheezes Heart- normal rate, regular rhythm; no murmurs Abdomen- normal bowel sounds, nondistended, soft, nontender Extremities- no pretibial edema, no calf tenderness Right hip moderate edema, no tenderness, no hematoma Neuro- alert, oriented x 1; no new gross focal neurologic deficits Skin- warm & dry Results & Data Vital Signs (Past 12 Hours) Vital Signs Temp Pulse Resp BP Pulse Ox 07/31/19 15:51 37.0 C 96 H 16 108/62 92 07/31/19 08:00 107 H 15 119/74 92 Laboratory Results Laboratory Results - last 24 hr 07/30/19 07/31/19 07/31/19 18:00 05:24 05:24 WBC 5.19 RBC 3.47 L Hgb 10.7 L Hct 32.8 L MCV 94.5 MCH 30.8 MCHC 32.6 RDW Std Deviation 47.7 H RDW Coeff of Peggy 13.9 Plt Count 160 MPV 11.2 H Immature Gran % (Auto) 1.2 Neut % (Auto) 62.9 Lymph % (Auto) 16.2 Kings % (Auto) 13.5 Eos % (Auto) 5.6 Baso % (Auto) 0.6 Immature Gran # (Auto) 0.06 H Neut # (Auto) 3.27 Lymph # (Auto) 0.84 L Kings # (Auto) 0.70 H Eos # (Auto) 0.29 Baso # (Auto) 0.03 Sodium 140 Potassium 3.4 L Chloride 105 Carbon Dioxide 28 Anion Gap 7.0 BUN 26 H Creatinine 0.59 L Est Cr Clr Drug Dosing 53.2 Est GFR ( Amer) 94.8 Est GFR (Non-Af Amer) 81.8 BUN/Creatinine Ratio 44.4 H Glucose 87 Calcium 8.6 25-OH Vitamin D Total Nasal Screen MRSA (PCR) Negative 07/31/19 05:24 WBC RBC Hgb Hct MCV MCH MCHC RDW Std Deviation RDW Coeff of Peggy Plt Count MPV Immature Gran % (Auto) Neut % (Auto) Lymph % (Auto) Kings % (Auto) Eos % (Auto) Baso % (Auto) Immature Gran # (Auto) Neut # (Auto) Lymph # (Auto) Kings # (Auto) Eos # (Auto) Baso # (Auto) Sodium Potassium Chloride Carbon Dioxide Anion Gap BUN Creatinine Est Cr Clr Drug Dosing Est GFR ( Amer) Est GFR (Non-Af Amer) BUN/Creatinine Ratio Glucose Calcium 25-OH Vitamin D Total 27.2 L Nasal Screen MRSA (PCR)
[2019-07-31] MEDS ORDERED: BUPIVACAINE 0.5 % 5 MG/1 ML PF 10ML VIAL ONE (17:09)
[2019-07-31] MEDS ORDERED: ORTHO JOINT ANESTHETIC ONE (17:53)
[2019-07-31] MEDS ORDERED: BACITRACIN INJ 50,000 UNIT VIAL ONE (17:53)
--- NOTE | 2019-07-31 18:04 | History & Physical Bridge Note ---
Date of Service July 31, 2019 History & Physical Bridge Note I have examined the patient, reviewed the History & Physical and in the interval since the performance of the History & Physical I have noted the following changes of clinical significance: Will require right hip hemiarthroplasty today. NPO. Consent on chart.
--- NOTE | 2019-07-31 18:23 | Consultation Report ---
DATE OF CONSULTATION: 07/31/2019 PERTINENT HISTORY: This is an 88-year-old female seen at the request of Dr. Zapata for right hip pain. The patient is a resident at the [facility] and according to [facility], no noted incident, report of fall and facility is unaware of when hip pain may have begun; however, they had difficulty with transferring and moving her, yesterday morning she had increased agitation, complaints of pain, no leg length discrepancy with rotation of the right leg. She was then transferred to [facility] and she was evaluated by the Emergency Department staff noted to have a right displaced femoral neck fracture per the radiographs and she was then admitted to the hospitalist service with orthopedics consulted for care. No other associated injuries noted. No head or neck trauma recorded. PAST MEDICAL HISTORY: Alzheimer's dementia, behavioral disturbance, anxiety, hyperlipidemia, osteopenia, glaucoma, history of breast cancer. PAST SURGICAL HISTORY: Mastectomy, bilateral cataract extraction, tonsillectomy, adenoidectomy, total abdominal hysterectomy and bilateral salpingo-oophorectomy. ALLERGIES: ALENDRONATE, IBUPROFEN, SIMVASTATIN, PRAVASTATIN, ROSUVASTATIN. MEDICATIONS: Acetaminophen, atorvastatin, Dulcolax, Latanoprost, lorazepam, milk of magnesia, mirtazapine, nabumetone, olanzapine, Zyprexa, sodium phosphate enema and trazodone. SOCIAL HISTORY: The patient is . She lives in her [facility] care home as a new resident as in 07/27/2019. Denies tobacco, alcohol or drug use. She is retired. PHYSICAL EXAMINATION: This is a pleasant 88-year-old female who is alert and oriented to person, pleasant and conversant. She is a petite and slightly frail. Normocephalic, atraumatic. EOMI, PERRLA. Trachea is midline. No JVD. Examination of the lower extremities demonstrates a shortened externally rotated right lower extremity compared to the left. She has tenderness to palpation of the right proximal femur and groin. Positive log roll, positive heel strike on the right. No significant bruising noted. Dorsalis pedis and posterior tibial pulses are palpable bilaterally. Feet are warm. Radiographs demonstrate 100% displaced right femoral neck fracture. Osteopenia. IMPRESSION: 100% displaced right femoral neck fracture status post unwitnessed fall. RECOMMENDATION: The patient will require a hemiarthroplasty of the right hip when stabilized and medically cleared. Maintain n.p.o. Consent will be obtained from her spouse. Thank you for the opportunity to consult in care of this patient.
[2019-07-31] MEDS ORDERED: BUPIVACAINE 0.5 % 5 MG/1 ML MPF 30ML VIAL ONE (19:17)
[2019-07-31] MEDS ORDERED: EPINEPHrine INJ 1 MG/ML AMP ONE (19:17)
[2019-07-31] MEDS ORDERED: PROPOFOL IV EMULSION 10 MG/ML 20 ML VIAL IV ONE (19:20)
--- NOTE | 2019-07-31 21:17 | Post Operative Brief Note ---
Immediate Post Op Note v1 Date of Surgery July 31, 2019 Pre & Post Diagnosis Operation Date: 07/31/19 14:00 Pre-Op Diagnosis: Right displaced femoral neck fracture Post-Op Diagnosis: Right displaced femoral neck fracture I identified the patient and participated in the time-out.: Yes Procedure Operation Date: 07/31/19 14:00 Actual Procedures p Right Hip Hemiarthroplasty with [place] uncemented hemiarthroplasty stem and bipolar head (Right) - Pedro Sequeira DO Surgeon Pedro Sequeira DO Service Unit Operator None Estimated Blood Loss 20 Findings Consistent with Post-Op Diagnosis Specimens Bone and tissue right hip Drains Gant Catheter and Hemovac Drain (10 lao, dual lumen) Anesthesia Type Spinal MAC Complications none Disposition Accompanied Patient To Recovery: Yes Disposition: Recovery Room
--- NOTE | 2019-07-31 22:21 | Anesthesiology Progress Note ---
Date of Service July 31, 2019 Anesthesia Post Procedure Vital Signs Vital Signs: Temp Pulse Pulse Resp BP Pulse Ox 07/31/19 22:05 36.8 C 92 H 22 126/55 L 100 07/31/19 21:55 94 H 15 97/54 L 95 07/31/19 21:45 92 H 22 130/97 94 07/31/19 21:35 105 H 21 118/57 L 97 07/31/19 21:25 101 H 20 116/62 97 07/31/19 21:16 36.7 C 105 H 21 123/58 L 100 07/31/19 18:13 37.3 C 98 H 25 H 124/48 L 93 07/31/19 15:51 37.0 C 96 H 16 108/62 92 07/31/19 08:00 107 H 15 119/74 92 07/30/19 22:57 37 C 114 H 16 99/58 L 91 Transfer of Care Handoff Completed per policy Notes Mental Status: alert / awake / arousable Patient Amnestic to Procedure: Yes Nausea / Vomiting: adequately controlled Pain: adequately controlled Airway Patency, RR, SpO2: stable & adequate BP & HR: see Notes below Hydration State: stable & adequate Neuraxial Anesthesia: was administered and sensory block is resolving Anesthetic Complications: no major complications apparent and Pt Satisfied with anesthetic care Notes: In PACU patient noted to have slightly elevated HR in low 100's (in OR were 80's - 90's). PACU nurse thought her ECG looked irregular so 12 lead was done and appeared to show A fib. Her primary hospitalist was contacted and decision was made to transfer to telemetry and he would evaluate the patient there and determine if rate control would be beneficial.
[2019-07-31] MEDS: TRAZODONE HCL 50 MG TAB PO SCH (23:12)
[2019-07-31] MEDS: OLANZapine 5 MG TABLET PO SCH (23:12)
[2019-07-31] MEDS: DOCUSATE SODIUM/SENNA 50/8.6MG TAB PO SCH (23:12)
[2019-07-31] MEDS: MIRTAZAPINE TAB 15 MG TAB PO SCH (23:12)
[2019-07-31] MEDS: LATANOPROST 0.005% OP SOLN 2.5 ML BTL OPB SCH (23:13)
[2019-08-01] MEDS: CEFAZOLIN 1000MG 1,000 MG/7.5 ML SYR IV SCH ×3 (02:53→16:56)
[2019-08-01 05:36] LABS: Basophils # (auto) 0.02 K/uL (0-0.2); Basophils % (auto) 0.3 %; Eosinophils # (auto) 0.12 K/uL (0-0.5); Eosinophils % (auto) 1.7 %; Hematocrit (blood only) 27.9 % (37-47); Hemoglobin 9.1 g/dL (12.0-16.0); Immature Granulocytes # (auto) 0.16 K/uL (0.00-0.02); Immature Granulocytes % (auto) 2.3 %; Lymphocytes # (auto) 0.69 K/uL (1.2-3.4); Lymphocytes % (auto) 9.8 %; Mean Corpuscular Hemoglobin 31.4 pg (25-34); Mean Corpuscular Hgb Conc 32.6 g/dL (32-36); Mean Corpuscular Volume 96.2 fL (80-100); Mean Platelet Volume 11.3 fL (7.4-10.4); Neutrophils # (auto) 5.34 K/uL (1.4-6.5); Neutrophils % (auto) 75.9 %; Platelet Count 154 K/uL (130-400); RDW Standard Deviation 48.6 fL (36.4-46.3); White Blood Count 7.03 K/uL (4.8-10.8)
[2019-08-01 06:08] LABS: BUN Creatinine Ratio 42.6 (10-20); Calcium 8.4 mg/dl (8.5-10.1); Est GFR (African American) 92.3; Est GFR (Non-African American) 79.7; Potassium 3.5 mmol/L (3.5-5.1)
--- NOTE | 2019-08-01 08:18 | Operative Report ---
DATE OF OPERATION: 07/31/2019 PREOPERATIVE DIAGNOSIS: Right displaced femoral neck fracture. POSTOPERATIVE DIAGNOSIS: Right displaced femoral neck fracture. PROCEDURE: Right hip hemiarthroplasty for fracture with a [place] Press-Fit Accolade II size 4 femoral stem with a UHR universal head bipolar component, 42 mm outer diameter, 26 mm inner diameter with a 26 mm +0 V40 femoral head. SURGEON: Pedro Sequeira DO. HIGH SCHOOL FOREIGN LANGUAGE TEACHER: None. ANESTHESIA: Spinal, MAC. SPECIMENS: Bone and tissue, right hip. DRAINS: Hemovac x2. COMPLICATIONS: None. BLOOD LOSS: 20 mL. PERTINENT HISTORY: This is an 88-year-old female who is a resident at [facility] as of 07/27/2019. She had an unwitnessed event, whether she fell or not is unclear; however, no one witnessed it. She has Alzheimer dementia and was complaining of pain during transfers and was unable to ambulate, presented to [facility]. Radiographs demonstrate a 100% displaced right femoral neck fracture. The patient was then admitted to the hospital, stabilized and then scheduled for surgery as indicated. All potential risks, benefits, complications, alternatives, potential for incomplete relief of symptoms, need for further surgery, DVT, PE, , persistent pain, swelling, scarring, weakness, neurovascular injury, wound complications, hardware failure, nonunion, malunion, and bone fracture were discussed with the patient and her . Obtained consent from the patient's who is her power of assistant attorney general. PROCEDURE: The patient was taken the operative suite and placed supine on the operating table. After review of the consent and identification the proper operative site the patient was then sedated and a spinal anesthetic was administered. Patient was then rolled into the left lateral decubitus position using a Stulberg positioner with the affected side up. All bony prominences were properly padded and protected. Leg lengths were assessed and protective sterile drapes were applied to separate the operative site from the perineum. The right lower extremity and hip was then sterilely prepped and draped in usual fashion. Surgical timeout was performed before incision time. A 10 blade scalpel was used to make an incision centered over the greater trochanter extending proximally and distally at the anterior one third of the femoral bone. The incision was deepened to the skin and subcutaneous tissue with a 10 blade scalpel. Electrocautery was used to maintain hemostasis. Incision was performed down to the level of the iliotibial band. The iliotibial band was then incised in line with the skin incision with a 10 blade scalpel. Moistened surgical towels were placed on the skin to protect it and a Charnley retractor was placed to retract the iliotibial band. The vastus lateralis was incised in line with the femoral bone and the abductor split was performed over the femoral neck and head using a 10 blade scalpel and a Hernández elevator. Electrocautery was then used to make an incision through the gluteus minimus and the joint capsule down to the level of the femoral neck, head and tip of the trochanter. Next the anterior contiguous flap of tissue was then sharply elevated with electrocautery from the anterior aspect of the proximal femur revealing the fractured femoral neck and head. A partial capsulectomy was performed at the site of the abductor split to increase visualization of the neck and head. Next the femoral neck cut was made approximately 1 fingerbreadth proximal to the lesser trochanter. This fragment of bone was then resected and a sharp Hohmann was placed along the posterior wall of the acetabulum to retract soft tissue. Next sharp Hohmann was also placed along the anterior wall of the acetabulum to protect soft tissue and improve visualization. Next a corkscrew was then impacted into the femoral head using a mallet. Femoral head was removed without difficulty and measured. Measurement is approximately 42 mm in diameter using a caliper. Next the pulvinar was then sharply excised using electrocautery from the base of the acetabulum. The 42 mm acetabular trial was placed into the acetabulum with perfect fit. Attention was then directed toward the proximal femur. A double footed retractor was placed under the proximal femur to elevate it out of the wound for access. The box osteotome was then impacted into the proximal femur with a mallet. Next the slubber hand was then passed into the proximal femoral canal without difficulty. Next sequential broaching was then performed beginning with a size 1 broach and a mallet. Sequential broaching was performed up to a size 4 and a +0 femoral neck trial and bipolar component trial was then placed onto the proximal femur. After careful irrigation with pulsatile lavage and suctioned dry, the hip joint was then reduced. A shuck test was performed and noted to be within normal limits. The hip was noted to be stable with both external rotation and internal rotation at 90 degrees of flexion and full extension. Leg lengths were noted to be equal. All trial components were then removed. Pulsatile lavage with bacitracin was then used to copiously irrigate all services within the site of the incision, within the acetabulum and within the proximal femoral canal. Next final implants were impacted into the proximal femur with a 26 mm femoral head with a +0 neck. Bipolar 42 mm head was then affixed to the proximal femur and then reduced to the acetabulum without difficulty. Range of motion was noted to be stable without excessive shock and equal leg lengths. Next a sterile dilute Betadine solution was used to soak all services for approximately 3 minutes. Next pulsatile lavage with bacitracin was then used to cleanse the incision site until clear. 2 drill holes were made in the proximal greater trochanter for passage of #5 FiberWire suture. And enhanced capsular and abductor repair was performed with a #5 FiberWire suture. 0.5% Marcaine with epinephrine was injected around the hip joint capsule for postop pain and bleeding control. A double lumen 10 [place] Hemovac drain was placed exiting anterolaterally. The vastus lateralis was closed using #1 Vicryl. The abductor split was closed using #1 Vicryl. The iliotibial band was closed using #1 Vicryl. The dermis was closed using buried interrupted 2-0 Vicryl. Skin was closed using skin missy. A sterile compressive dressing was applied. Patient was then rolled supine. Leg lengths noted to be equal. An abductor pillow brace was placed between the legs and the patient was then taken to recovery in stable condition. I attest to the content of the Intraoperative Record and any orders documented therein. Any exceptions are noted below. I attest to the content of the Intraoperative Record and any orders documented therein. Any exceptions are noted below. NINA
--- NOTE | 2019-08-01 08:19 | Anesthesiology Progress Note ---
Date of Service August 01, 2019 Anesthesia Post Procedure Vital Signs Vital Signs: Temp Pulse Pulse Pulse Resp BP Pulse Ox 08/01/19 07:05 37.1 C 92 H 24 101/42 L 97 08/01/19 03:09 36.7 C 85 20 109/46 L 100 07/31/19 23:37 87 07/31/19 23:22 36.9 C 99 H 18 123/41 L 95 07/31/19 22:35 36.4 C L 96 H 18 138/66 98 07/31/19 22:05 36.8 C 92 H 22 126/55 L 100 07/31/19 21:55 94 H 15 97/54 L 95 07/31/19 21:45 92 H 22 130/97 94 07/31/19 21:35 105 H 21 118/57 L 97 07/31/19 21:25 101 H 20 116/62 97 07/31/19 21:16 36.7 C 105 H 21 123/58 L 100 07/31/19 18:13 37.3 C 98 H 25 H 124/48 L 93 07/31/19 15:51 37.0 C 96 H 16 108/62 92 Notes Mental Status: alert / awake / arousable and participated in evaluation Patient Amnestic to Procedure: Yes Nausea / Vomiting: adequately controlled Pain: adequately controlled Airway Patency, RR, SpO2: stable & adequate BP & HR: stable & adequate Hydration State: stable & adequate Neuraxial Anesthesia: was administered and sensory block resolved Anesthetic Complications: no major complications apparent and Pt Satisfied with anesthetic care
[2019-08-01] MEDS: ACETAMINOPHEN 325 MG TAB PO SCH ×4 (09:04→21:07)
[2019-08-01] MEDS: OLANZAPINE 2.5 MG TAB PO SCH (09:05)
[2019-08-01] MEDS ORDERED: CONSULT PHARMACY STA (11:18)
[2019-08-01] MEDS: LACTATED RINGER'S 1,000 ML IV SCH ×2 (11:26→21:03)
[2019-08-01] MEDS ORDERED: ERGOCALCIFEROL 50,000 UNITS CAP PO SCH (12:00)
[2019-08-01] MEDS ORDERED: CEFEPIME CONSULT ACTIVE PRN (12:39)
[2019-08-01] MEDS: CEFEPIME 2,000 MG in SYRINGE 7.5 ML IV SCH (13:10)
--- NOTE | 2019-08-01 16:41 | XRay Report ---
RIGHT HIP 2 VIEWS CLINICAL HISTORY: Postoperative examination. FINDINGS: 2 portable views of the right hip are compared to study dated 07/30/2019. The skeletal stru ctures are osteopenic. A unipolar right hip arthroplasty is in near anatomic alignment. No acute frac ture is seen. The visualized right hemipelvis appears intact. There are expected postoperative findin gs overlying the right hip including skin clips, a surgical drain, subcutaneous gas, and soft tissue swelling. There is atherosclerotic calcification of the right femoral artery. IMPRESSION: Expected postoperative findings status post right hip arthroplasty. No acute fracture is seen. Electronically signed by: Lawson Brown M.D. 08/01/2019 4:40 PM
--- NOTE | 2019-08-01 16:50 | Orthopedic Progress Note ---
Date of Service August 01, 2019 Assessment & Plan (1) Hip fracture, right: WBAT with assist x1 and walker TEDs and SCDs B LE while in bed Xrays post-op right hip obtained PT/OT to eval and treat Complete post-op Ancef tx x 24 hrs Soc services for D/C planning Present on Admission?: Yes (2) Fracture of right hip: Subjective Comfortable and resting in bed. Getting a bath. Pain well controlled. Physical Exam Physical Exam: Resting comfortably in bed. Right hip in place. Dressing C/D/I w/ scant drainage from intact drain. (25cc in last 8 hrs). Calves soft/ nontender. DNVSI. Results & Data Vital Signs (Past 12 Hours) Vital Signs Temp Pulse Resp BP Pulse Ox 08/01/19 16:01 96 08/01/19 15:58 87 L 08/01/19 15:55 37.2 C 102 H 19 128/46 L 96 08/01/19 11:07 36.6 C 105 H 18 127/52 L 98 08/01/19 07:05 37.1 C 92 H 24 101/42 L 97
[2019-08-01] MEDS: ASPIRIN 81 MG ECTAB PO SCH (21:04)
[2019-08-01] MEDS: TRAZODONE HCL 50 MG TAB PO SCH (21:04)
[2019-08-01] MEDS: MIRTAZAPINE TAB 15 MG TAB PO SCH (21:04)
[2019-08-01] MEDS: OLANZapine 5 MG TABLET PO SCH (21:04)
[2019-08-01] MEDS: LATANOPROST 0.005% OP SOLN 2.5 ML BTL OPB SCH (21:05)
[2019-08-01] MEDS: DOCUSATE SODIUM/SENNA 50/8.6MG TAB PO SCH (21:07)
[2019-08-02] MEDS: CEFEPIME 2,000 MG in SYRINGE 7.5 ML IV SCH ×2 (01:34→12:40)
--- NOTE | 2019-08-02 05:36 | Hospitalist Progress Note ---
Date of Service delayed entry date of service 08/01/19 August 02, 2019 Assessment & Plan (1) Hip fracture, right: RIGHT HIP FRACTURE Likely osteoporotic right hip fracture , mechanism of injury unknown s/p ORIF 07/31/19 transferred to Telemetry for apparent a fib, management noted below pain well controlled further management per Dr. Sequeira Lovenox/Heparin for DVT prophylaxis when ok with Ortho PT/OT EPISODE OF ATRIAL FIBRILLATION? based on 1 EKG after surgery, formal read pending no history in the past sinus tachycardia on tele continue IV fluids monitor ANEMIA, LIKELY ACUTE BLOOD LOSS 11.9 to 9.1 asymptomatic monitor PSEUDOMONAS UTI start Cefepine IV DYSPHAGIA reported by RN in AM no history as per Speech therapy eval ordered VIT D DEFICIENCY Vitd 5k weekly x 4 weeks then repeat Vit D in 4-6 weeks Major neurocognitive disorder due to Alzheimer's disease, probable, with behavioral disturbance: per admitting PA notes: Recent admission 07/13 to 07/27 to [facility] secondary to Alzheimer's with behavioral disturbance Consulted psych Continue Zyprexa, mirtazapine, trazodone IM Haldol 3 mg as needed for severe agitation and behavioral disturbance/combative behavior PRN Lorazepam as needed -- remains Calm, cooperative this afternoon, at baseline mental status per patient's -- continue 1:1 with psych precautions given recent admission to [facility] Hyperlipidemia: on statin in outpt setting hold for now Anxiety: prn lorazepam Primary open angle glaucoma: continue eye gtts DVT prophylaxis: SCD/TEDS start heparin/lovenox when ok with Ortho Disposition: admit to med/surg, 1:1 ordered with psych precautions given recent admission to [facility] Follow up: d/c to SNF when medically stable, cleared by Ortho Ortho Dr. Sequeira PCP Dr. Alexandra upon discharge Subjective ff up for hip fracture transferred to telemetry secondary to apparent a fib sinus rhythm observed in telemetry seen sitting up in bed, calm, cooperative, pleasant oriented x 1-2, somewhat confused, at bedside minimal pain over surgical site denies chest pain, dyspnea, palpitations, dizziness (+) dysphagia as per RN no other symptoms Review of Systems Review of Systems: All systems reviewed & are unremarkable except as noted in HPI & below Physical Exam Physical Exam: General- oriented x 1-2, not in distress, speaks in sentences with no effort or accessory muscle use Eyes- anicteric Neck- no JVD Lungs- clear breath sounds bilaterally, no rales/wheezes Heart- mild tachycardia, regular rhythm; no murmurs Abdomen- normal bowel sounds, nondistended, soft, nontender Extremities- right thigh- heavy dressing in place, mild edema no pretibial edema, no calf tenderness Neuro- alert, oriented x 3; no gross focal neurologic deficits Skin- warm & dry Results & Data Vital Signs (Past 12 Hours) Vital Signs Temp Pulse Pulse Resp BP Pulse Ox 08/02/19 03:07 36.4 C L 85 20 125/50 L 100 08/02/19 00:00 36.6 C 88 82 20 129/47 L 99 08/01/19 20:00 36.5 C 88 18 128/46 L 99 Laboratory Results Laboratory Results - last 24 hr 08/01/19 08/01/19 05:09 05:09 Sodium 141 Potassium 3.5 Chloride 107 Carbon Dioxide 24 Anion Gap 10.0 BUN 27 H Creatinine 0.64 Est Cr Clr Drug Dosing 49.0 Est GFR ( Amer) 92.3 Est GFR (Non-Af Amer) 79.7 BUN/Creatinine Ratio 42.6 H Glucose 78 Calcium 8.4 L Magnesium 2.0 TSH 1.000
[2019-08-02] MEDS: LACTATED RINGER'S 1,000 ML IV SCH ×2 (05:43→15:52)
--- NOTE | 2019-08-02 06:29 | Orthopedic Progress Note ---
Date of Service August 02, 2019 Assessment & Plan (1) Hip fracture, right: POD #2 Right hip hemiarthroplasty for fracture WBAT with assist x1 and walker TEDs and SCDs B LE while in bed PT/OT to eval and treat Soc services for D/C planning Subjective POD #2 patient sleeping in bed, awakens for questions but then falls back to sleep. Physical Exam Physical Exam: Vital Signs Temp 36.4 C L 08/02/19 03:07 Pulse 85 08/02/19 03:07 Resp 20 08/02/19 03:07 BP 125/50 L 08/02/19 03:07 Pulse Ox 100 08/02/19 03:07 Intake & Output 08/01/19 08/01/19 08/02/19 06:59 18:59 06:59 Intake Total 2041 / 3253 1440 / 3388.334 1948.334 / 3388.33 4 Output Total 295 / 445 435 / 685 250 / 685 Balance 1746 / 2808 1005 / 2703.334 1698.334 / 2703.33 4 Weight 50.9 kg 50.6 kg Intake: IV 741 / 1953 1000 / 2828.334 1828.334 / 2828.33 4 Lr 1,000 ml @ 100 mls/hr IV . 741 / 1953 1000 / 2828.334 1828.334 / 2828.33 4 Q10H STOR[facility] Rx#:[id number] IV Perioperative 1300 / 1300 Oral 440 / 560 120 / 560 Output: Estimated Blood Loss 20 / 20 Urine Amount (Ca theter) 250 / 250 300 / 550 250 / 550 Gant/Indwelli ng 250 / 250 300 / 550 250 / 550 Drain Output 25 / 25 135 / 135 Right Hip 25 / 25 135 / 135 Other: Other Intake Kate rce sips Musculoskeletal: Right Hip: dressing clean and dry, calf SNT, she does wiggle her toes/ankle; DP Palpable Results & Data Vital Signs (Past 12 Hours) Vital Signs Temp Pulse Pulse Resp BP Pulse Ox 08/02/19 03:07 36.4 C L 85 20 125/50 L 100 08/02/19 00:00 36.6 C 88 82 20 129/47 L 99 08/01/19 20:00 36.5 C 88 18 128/46 L 99 Laboratory Results Laboratory Results WBC 7.03 K/uL (4.8-10.8) 08/01/19 05:09 RBC 2.90 M/uL (4.2-5.4) L 08/01/19 05:09 Hgb 9.1 g/dL (12.0-16.0) L 08/01/19 05:09 Hct 27.9 % (37-47) L 08/01/19 05:09 MCV 96.2 fL (80-100) 08/01/19 05:09 MCH 31.4 pg (25-34) 08/01/19 05:09 MCHC 32.6 g/dL (32-36) 08/01/19 05:09 RDW Std Deviation 48.6 fL (36.4-46.3) H 08/01/19 05:09 RDW Coeff of Peggy 14.0 % (11.5-14.5) 08/01/19 05:09 Plt Count 154 K/uL (130-400) 08/01/19 05:09 MPV 11.3 fL (7.4-10.4) H 08/01/19 05:09 Immature Gran % (Auto) 2.3 % 08/01/19 05:09 Neut % (Auto) 75.9 % 08/01/19 05:09 Lymph % (Auto) 9.8 % 08/01/19 05:09 Scott % (Auto) 10.0 % 08/01/19 05:09 Eos % (Auto) 1.7 % 08/01/19 05:09 Baso % (Auto) 0.3 % 08/01/19 05:09 Immature Gran # (Auto) 0.16 K/uL (0.00-0.02) H 08/01/19 05:09 Neut # (Auto) 5.34 K/uL (1.4-6.5) 08/01/19 05:09 Lymph # (Auto) 0.69 K/uL (1.2-3.4) L 08/01/19 05:09 Scott # (Auto) 0.70 K/uL (0.11-0.59) H 08/01/19 05:09 Eos # (Auto) 0.12 K/uL (0-0.5) 08/01/19 05:09 Baso # (Auto) 0.02 K/uL (0-0.2) 08/01/19 05:09 PT 10.7 Seconds (9.0-12.0) 07/30/19 13:16 INR 1.0 (0.9-1.1) 07/30/19 13:16 APTT 27.1 Seconds (21.0-31.0) 07/30/19 13:16 PTT Ratio 1.0 07/30/19 13:16 Sodium 141 mmol/L (136-145) 08/01/19 05:09 Potassium 3.5 mmol/L (3.5-5.1) 08/01/19 05:09 Chloride 107 mmol/L (98-107) 08/01/19 05:09 Carbon Dioxide 24 mmol/L (21-32) 08/01/19 05:09 Anion Gap 10.0 (3-11) 08/01/19 05:09 BUN 27 mg/dl (7-18) H 08/01/19 05:09 Creatinine 0.64 mg/dl (0.6-1.2) 08/01/19 05:09 Est Cr Clr Drug Dosing 49.0 ml/min 08/01/19 05:09 Est GFR ( Amer) 92.3 08/01/19 05:09 Est GFR (Non-Af Amer) 79.7 08/01/19 05:09 BUN/Creatinine Ratio 42.6 (10-20) H 08/01/19 05:09 Glucose 78 mg/dl (70-99) 08/01/19 05:09 Calcium 8.4 mg/dl (8.5-10.1) L 08/01/19 05:09 Magnesium 2.0 mg/dl (1.8-2.4) 08/01/19 05:09 25-OH Vitamin D Total 27.2 ng/ml (30-100) L 07/31/19 05:24 TSH 1.000 uIu/ml (0.300-4.500) 08/01/19 05:09 Urine Color Dark Yellow 07/30/19 14:17 Urine Appearance Clear (Clear) 07/30/19 14:17 Urine pH 6.0 (4.5-7.5) 07/30/19 14:17 Ur Specific [place] 1.022 (1.000-1.030) 07/30/19 14:17 Urine Protein Negative (Negative) 07/30/19 14:17 Urine Glucose (UA) Negative (Negative) 07/30/19 14:17 Urine Ketones Negative (Negative) 07/30/19 14:17 Urine Blood Negative (Negative) 07/30/19 14:17 Urine Nitrite Negative (Negative) 07/30/19 14:17 Urine Bilirubin Negative (Negative) 07/30/19 14:17 Urine Urobilinogen Negative (Negative) 07/30/19 14:17 Ur Leukocyte Esterase 3+ (Negative) H 07/30/19 14:17 Urine WBC (Auto) >30 /hpf (0-5) H 07/30/19 14:17 Urine RBC (Auto) 0-4 /hpf (0-4) 07/30/19 14:17 U Hyaline Cast (Auto) 1-5 /lpf (0-5) 07/30/19 14:17 U Epithel Cells (Auto) >30 /lpf (0-5) H 07/30/19 14:17 Urine Bacteria (Auto) Negative (Negative) 07/30/19 14:17 Ur Renal Epithelial Cell 0-5 /lpf (0-5) 07/30/19 14:17 Nasal Screen MRSA (PCR) Negative (Negative) 07/30/19 18:00 Blood Type O Positive 07/30/19 14:37 Antibody Screen NEGATIVE 07/30/19 14:37
[2019-08-02 06:41] LABS: Hematocrit (blood only) 26.4 % (37-47); Hemoglobin 8.7 g/dL (12.0-16.0); Mean Corpuscular Hemoglobin 31.1 pg (25-34); Mean Corpuscular Volume 94.3 fL (80-100); Mean Platelet Volume 10.9 fL (7.4-10.4); Platelet Count 156 K/uL (130-400); RDW Standard Deviation 48.8 fL (36.4-46.3)
[2019-08-02 07:10] LABS: BUN Creatinine Ratio 42.1 (10-20); Calcium 8.6 mg/dl (8.5-10.1); Creatinine Clr Calc Pharmacy 51.8 ml/min; Est GFR (African American) 94.3; Est GFR (Non-African American) 81.4; Potassium 3.7 mmol/L (3.5-5.1)
[2019-08-02 07:11] LABS: ALC (manual) 1.16 K/uL (1.2-3.4); ANC (manual) 4.64 K/uL (1.4-6.5); Acanthocytes 1+; Basophils # (manual) 0.06 K/uL (0-0.2); Basophils % (manual) 0.9 %; Eosinophils # (manual) 0.33 K/uL (0-0.5); Eosinophils % (manual) 5.3 %; Lymphocytes # (manual) 1.16 K/uL (1.2-3.4); Lymphocytes % (manual) 18.4 %; Monocytes # (manual) 0.11 K/uL (0.11-0.59); Monocytes % (manual) 1.8 %; Neutrophils # (manual) 4.64 K/uL (1.4-6.5); Neutrophils % (manual) 73.6 %; Toxic Vacuolation 1+
[2019-08-02] MEDS: OLANZAPINE 2.5 MG TAB PO SCH (07:28)
[2019-08-02] MEDS: ACETAMINOPHEN 325 MG TAB PO SCH ×4 (07:28→21:00)
[2019-08-02] MEDS: ASPIRIN 81 MG ECTAB PO SCH ×2 (07:29→20:57)
--- NOTE | 2019-08-02 09:59 | Hospitalist Progress Note ---
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 Sequeira Lovenox/Heparin for DVT prophylaxis when ok with Ortho-has not been started yet as atrial fibrillation seems to be very transient Continue PT/OT EPISODE OF ATRIAL FIBRILLATION? based on 1 EKG after surgery, formal read pending no history in the past and seems to be reverted to sinus rhythm sinus tachycardia on tele continue IV fluid Will repeat EKG this morning ANEMIA, LIKELY ACUTE BLOOD LOSS 11.9 to 9.1 asymptomatic Hemoglobin remained stable at 8.7 on 08/02 PSEUDOMONAS UTI start Cefepine IV Pansensitive and will continue antibiotic for total of 3 days DYSPHAGIA reported by RN in AM no history as per Speech therapy eval ordered Past bedside swallowing evaluation VIT D DEFICIENCY Vitd 5k weekly x 4 weeks then repeat Vit D in 4-6 weeks Continue regular supplemental vitamin D Major neurocognitive disorder due to Alzheimer's disease, probable, with behavioral disturbance: per admitting PA notes: Recent admission 07/13 to 07/27 to [facility] secondary to Alzheimer's with behavioral disturbance Consulted psych:Continue Zyprexa, mirtazapine, trazodone IM Haldol 3 mg as needed for severe agitation and behavioral disturbance/combative behavior PRN Lorazepam as needed -- remains Calm, cooperative this afternoon, at baseline mental status per patient's -- continue 1:1 with psych precautions given recent admission to [facility] --One-to-one observation discontinued --She seems to be stable without any delirium Hyperlipidemia: on statin in outpt setting hold for now Anxiety: prn lorazepam Primary open angle glaucoma: continue eye gtts DVT prophylaxis: SCD/TEDS start heparin/lovenox when ok with Ortho; not yet started Will discuss with the family members before restarting any heparin and the Lovenox for atrial fibrillation Risk seems to be higher for this patient Disposition: admit to med/surg, 1:1 ordered with psych precautions given recent admission to [facility] Follow up: d/c to SNF when medically stable, cleared by Ortho Ortho Dr. Sequeira PCP Dr. Nasrin upon discharge Subjective 08/02 The patient was seen and examined in telemetry unit This is a 88-year-old female with significant past medical history of Alzheimer with behavioral disturbance, anxiety, hyperlipidemia, osteopenia, glaucoma, history of breast CA status post mastectomy who presents to ED from SNF secondary to inability to transfer and complaints of right lower extremity pain and and ended up with a right hip fracture She is status post ORIF on of this month She has had transient atrial fibrillation following surgery Denies any symptoms as of this morning Has been getting physical therapy Review of Systems Review of Systems: All systems reviewed and are unremarkable except as noted below Constitutional: + malaise and + weakness Musculoskeletal: Continues to have right hip pain on movement Physical Exam Physical Exam: Sitting on a chair,outside bed without any acute symptoms Constitutional: + acute distress and + ill appearing Eyes: PERRL, conjunctivae normal, anicteric sclerae ENMT: external ear and nose normal, oropharynx normal Neck: trachea midline, no thyromegaly Respiratory: normal respiratory effort; no respiratory distress Auscultation: + diminished lung sounds (At the bases with minimal crackles) Cardiovascular: Rate/Rhythm: regular rate and regular rhythm Heart Sounds: no murmur Gastrointestinal (Abdomen): Inspection/Auscultation: abdomen normal to inspection and normal bowel sounds Musculoskeletal: Hip pain with movement of the right lower extremity Neurologic: Alert, awake and oriented x3. Generally weak but no focal neuro deficit Results & Data Vital Signs (Past 12 Hours) Vital Signs Temp Pulse Pulse Resp BP Pulse Ox 08/02/19 07:03 36.4 C L 99 H 16 133/57 L 93 08/02/19 03:07 36.4 C L 85 20 125/50 L 100 08/02/19 00:00 36.6 C 88 82 20 129/47 L 99 Laboratory Results Short CBC 08/02/19 Range/Units 06:27 WBC 6.30 (4.8-10.8) K/uL Hgb 8.7 L (12.0-16.0) g/dL Hct 26.4 L (37-47) % Plt Count 156 (130-400) K/uL BMP 08/02/19 06:27 Sodium 139 Potassium 3.7 Chloride 108 H Carbon Dioxide 28 BUN 25 H Creatinine 0.60 Glucose 103 H Calcium 8.6 Medications Administered Current Inpatient Medications Acetaminophen (Tylenol) 650 mg PO QID [facility]: 08/29/19 17:37 Last Admin: 08/02/19 07:28 Dose: 650 mg Documented by: Aspirin (Ecotrin Ectab) 81 mg PO BID [facility] Stop: 08/31/19 20:59 Last Admin: 08/02/19 07:29 Dose: 81 mg Documented by: Bisacodyl (Dulcolax) 10 mg RI DAILY PRN PRN Reason: Constipation Stop: 08/29/19 17:37 Ergocalciferol (Vitamin D2) 50,000 units PO Tu@1200 [facility] Stop: 08/31/19 11:59 Last Admin: 08/01/19 13:10 Dose: 50,000 units Documented by: Haloperidol Lactate (Haldol) 3 mg IM Q12H PRN PRN Reason: Agitation Stop: 08/29/19 17:37 Lactated Ringer's (Lr) 1,000 mls @ 100 mls/hr IV .Q10H [facility] Stop: 08/29/19 15:31 Last Admin: 08/02/19 05:43 Dose: 100 mls/hr Documented by: Cefepime HCl 2,000 mg/ Syringe 20 mls @ 5 mls/min IV Q12H [facility] Stop: 08/11/19 12:59 Last Admin: 08/02/19 01:34 Dose: 5 mls/min Documented by: Latanoprost (Xalatan Oph) 1 drops OPB [facility] Stop: 08/29/19 20:59 Last Admin: 08/01/19 21:05 Dose: 1 drops Documented by: Lorazepam (Ativan) 0.5 mg PO Q6H PRN PRN Reason: Anxiety Stop: 08/29/19 17:37 Magnesium Hydroxide (Milk Of Magnesia) 30 ml PO DAILY PRN PRN Reason: Constipation Stop: 08/29/19 17:37 Mirtazapine (Remeron) 7.5 mg PO [facility] Stop: 08/29/19 20:59 Last Admin: 08/01/19 21:04 Dose: 7.5 mg Documented by: Miscellaneous Information (Cefepime Consult Active) 1 ea N/A UD PRN PRN Reason: Consult Stop: 08/31/19 12:38 Morphine Sulfate (Morphine Sulfate) 2 mg IV Q4H PRN PRN Reason: MODERATE Pain (Scale 4,5,6) Stop: 08/13/19 17:37 Naloxone HCl (Narcan) 0.1 mg IV UD PRN PRN Reason: Opiate Overdose Stop: 08/29/19 17:37 Olanzapine (Zyprexa) 2.5 mg PO [facility] Stop: 08/30/19 08:59 Last Admin: 08/02/19 07:28 Dose: 2.5 mg Documented by: Olanzapine (Zyprexa) 5 mg PO [facility] Stop: 08/29/19 20:59 Last Admin: 08/01/19 21:04 Dose: 5 mg Documented by: Ondansetron HCl (Zofran) 4 mg IV Q6H PRN PRN Reason: Nausea And Vomiting Stop: 08/29/19 17:37 Last Admin: 08/01/19 11:41 Dose: 4 mg Documented by: Oxycodone HCl (Roxicodone Immediate Rel) 5 mg PO Q4H PRN PRN Reason: MODERATE Pain (Scale 4,5,6) Stop: 08/13/19 17:37 Senna/Docusate Sodium (Senokot S) 2 tab PO [facility] Stop: 08/29/19 20:59 Last Admin: 08/01/19 21:07 Dose: 2 tab Documented by: Trazodone HCl (Desyrel) 50 mg PO [facility] Stop: 08/29/19 20:59 Last Admin: 08/01/19 21:04 Dose: 50 mg Documented by:
[2019-08-02] MEDS: LATANOPROST 0.005% OP SOLN 2.5 ML BTL OPB SCH (20:57)
[2019-08-02] MEDS: OLANZapine 5 MG TABLET PO SCH (20:57)
[2019-08-02] MEDS: TRAZODONE HCL 50 MG TAB PO SCH (20:58)
[2019-08-02] MEDS: DOCUSATE SODIUM/SENNA 50/8.6MG TAB PO SCH (21:00)
[2019-08-02] MEDS: MIRTAZAPINE TAB 15 MG TAB PO SCH (21:00)
[2019-08-03] MEDS: CEFEPIME 2,000 MG in SYRINGE 7.5 ML IV SCH ×2 (00:39→13:26)
[2019-08-03 06:51] LABS: Basophils # (auto) 0.02 K/uL (0-0.2); Basophils % (auto) 0.3 %; Eosinophils # (auto) 0.39 K/uL (0-0.5); Eosinophils % (auto) 5.4 %; Hematocrit (blood only) 27.7 % (37-47); Hemoglobin 9.2 g/dL (12.0-16.0); Immature Granulocytes # (auto) 0.09 K/uL (0.00-0.02); Immature Granulocytes % (auto) 1.2 %; Lymphocytes # (auto) 1.18 K/uL (1.2-3.4); Lymphocytes % (auto) 16.3 %; Mean Corpuscular Hemoglobin 31.6 pg (25-34); Mean Corpuscular Hgb Conc 33.2 g/dL (32-36); Mean Corpuscular Volume 95.2 fL (80-100); Mean Platelet Volume 10.8 fL (7.4-10.4); Monocytes # (auto) 0.71 K/uL (0.11-0.59); Monocytes % (auto) 9.8 %; Neutrophils # (auto) 4.84 K/uL (1.4-6.5); Platelet Count 178 K/uL (130-400); RDW Coefficient of Variation 13.8 % (11.5-14.5); RDW Standard Deviation 47.7 fL (36.4-46.3); Red Blood Count 2.91 M/uL (4.2-5.4); White Blood Count 7.23 K/uL (4.8-10.8)
[2019-08-03 07:12] LABS: Calcium 8.8 mg/dl (8.5-10.1); Est GFR (African American) 101.5; Est GFR (Non-African American) 87.6; Magnesium 1.8 mg/dl (1.8-2.4); Potassium 3.6 mmol/L (3.5-5.1)
--- NOTE | 2019-08-03 11:10 | Hospitalist Progress Note ---
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 Sequeira Lovenox/Heparin for DVT prophylaxis when ok with Ortho-has not been started yet as atrial fibrillation seems to be very transient Continue PT/OT and will need placement ATRIAL FIBRILLATION -ruled out based on 1 EKG after surgery, formal read pending no history in the past and seems to be reverted to sinus rhythm sinus tachycardia on tele continue IV fluid-Will discontinue IV fluid Repeat EKG did not show any atrial fibrillation Noted to have decreased breath sounds both sides of the lung Will get chest x-ray rule out any possibility of CHF ANEMIA, LIKELY ACUTE BLOOD LOSS 11.9 to 9.1 asymptomatic Hemoglobin remained stable at 8.7 on 08/02 PSEUDOMONAS UTI start Cefepine IV Pansensitive and will continue antibiotic for total of 3 days DYSPHAGIA reported by RN in AM no history as per Speech therapy eval ordered Passed bedside swallowing evaluation VIT D DEFICIENCY Vitd 5k weekly x 4 weeks then repeat Vit D in 4-6 weeks Continue regular supplemental vitamin D Major neurocognitive disorder due to Alzheimer's disease, probable, with behavioral disturbance: per admitting PA notes: Recent admission 07/13 to 07/27 to [facility] secondary to Alzheimer's with behavioral disturbance Consulted psych:Continue Zyprexa, mirtazapine, trazodone IM Haldol 3 mg as needed for severe agitation and behavioral di sturbance/combative behavior PRN Lorazepam as needed -- remains Calm, cooperative this afternoon, at baseline mental status per patient's -- continue 1:1 with psych precautions given recent admission to [facility] --One-to-one observation discontinued --She seems to be stable without any delirium Hyperlipidemia: on statin in outpt setting hold for now Anxiety: prn lorazepam Primary open angle glaucoma: continue eye gtts DVT prophylaxis: SCD/TEDS start heparin/lovenox when ok with Ortho; not yet started Will discuss with the family members before restarting any heparin and the Lovenox for atrial fibrillation Risk seems to be higher for this patient Disposition: admit to med/surg, 1:1 ordered with psych precautions given recent admission to [facility] One-to-one sitting has been discontinued Follow up: d/c to SNF when medically stable, cleared by Ortho Ortho Dr. Sequeira PCP Dr. Alexandra upon discharge Subjective 08/02 The patient was seen and examined in telemetry unit This is a 88-year-old female with significant past medical history of Alzheimer with behavioral disturbance, anxiety, hyperlipidemia, osteopenia, glaucoma, history of breast CA status post mastectomy who presents to ED from SNF secondary to inability to transfer and complaints of right lower extremity pain and and ended up with a right hip fracture She is status post ORIF on of this month She has had transient atrial fibrillation following surgery Denies any symptoms as of this morning Has been getting physical therapy 08/03 Patient was seen and examined in telemetry unit She complains to have hoarseness of voice since this morning Denies any other symptoms She did not go for physical therapy this morning Review of Systems Review of Systems: All systems reviewed and are unremarkable except as noted below Constitutional: + malaise and + weakness Musculoskeletal: Continues to have right hip pain on movement Physical Exam Constitutional: + acute distress and + ill appearing Eyes: PERRL, conjunctivae normal, anicteric sclerae ENMT: external ear and nose normal, oropharynx normal Neck: trachea midline, no thyromegaly Respiratory: normal respiratory effort; no respiratory distress Auscultation: + diminished lung sounds (Bilaterally mostly at the bases) Cardiovascular: Rate/Rhythm: regular rate and regular rhythm Heart Sounds: no murmur Gastrointestinal (Abdomen): Inspection/Auscultation: abdomen normal to inspection and normal bowel sounds Neurologic: moves all extremities; no focal motor deficits Results & Data Vital Signs (Past 12 Hours) Vital Signs Temp Pulse Pulse Resp BP Pulse Ox 08/03/19 09:51 104 H 08/03/19 07:26 37.4 C 95 H 20 151/49 H 99 08/03/19 04:00 36.5 C 89 22 116/47 L 99 08/02/19 23:47 37.6 C H 109 H 22 145/59 H 92
[2019-08-03] MEDS: LACTATED RINGER'S 1,000 ML IV SCH (11:35)
--- NOTE | 2019-08-03 11:43 | XRay Report ---
XR chest 1V portable HISTORY: 88 years-old Female chf acute shortness of breath with congestive heart failure COMPARISON: Chest radiograph 07/30/2019 TECHNIQUE: Portable AP view of the chest FINDINGS: Cardiac mediastinal and hilar silhouettes are within normal limits. Asymmetric left basilar opacities . Calcified plaque of the thoracic aorta. Mild blunting of the costophrenic angles suggests trace eff usions. No pneumothorax. Degenerative changes of the shoulders and spine. IMPRESSION: 1. No evidence of overt pulmonary edema. 2. Asymmetric left basilar opacities suggest atelectasis or pneumonia. 3. Probable trace pleural effusions. ACT 112: Negative or not required by law. The above report was generated using voice recognition software. It may contain grammatical, syntax o r spelling errors. Electronically signed by: Jono Orosco M.D. 08/03/2019 11:41 AM
[2019-08-03] MEDS: ASPIRIN 81 MG ECTAB PO SCH ×2 (13:26→20:41)
[2019-08-03] MEDS: ACETAMINOPHEN 325 MG TAB PO SCH ×4 (13:26→20:47)
[2019-08-03] MEDS: OLANZAPINE 2.5 MG TAB PO SCH (13:26)
--- NOTE | 2019-08-03 17:32 | Orthopedic Progress Note ---
Date of Service August 03, 2019 Assessment & Plan (1) Hip fracture, right: s/p Right hip hemiarthroplasty POD#3 DVT ppx: SCDs, TEDs, 81mg ASA BID WBAT with assist x1 and walker TEDs and SCDs B LE while in bed PT/OT to eval and treat A.M. labs: hgb 9.2 Soc services for D/C planning Orthopedics will sign off, DC instructions in chart, please call with questions Subjective Post Operative Progress Note Patient seen sitting up in bed, comfortable, denies complaints, pain well controlled, no acute issues. Denies F/C/N/V/SOP/CP Review of Systems Review of Systems: All systems reviewed & are unremarkable except as noted in HPI & below Constitutional: as per Subjective / HPI Physical Exam Physical Exam: RLE NVSI +EHL/FHL/TA/GS SILT grossly, +2 DP pulse, compartments soft NT, dressing cdi. Constitutional: WD/WN, vitals as above Results & Data Vital Signs (Past 12 Hours) Vital Signs Temp Pulse Pulse Resp BP Pulse Ox 08/03/19 16:12 36.6 C 94 H 28 H 132/50 L 97 08/03/19 11:25 36.9 C 105 H 17 123/68 97 08/03/19 09:51 104 H 08/03/19 07:26 37.4 C 95 H 20 151/49 H 99
[2019-08-03] MEDS: TRAZODONE HCL 50 MG TAB PO SCH (20:41)
[2019-08-03] MEDS: OLANZapine 5 MG TABLET PO SCH (20:42)
[2019-08-03] MEDS: MIRTAZAPINE TAB 15 MG TAB PO SCH (20:42)
[2019-08-03] MEDS: LATANOPROST 0.005% OP SOLN 2.5 ML BTL OPB SCH (20:43)
[2019-08-03] MEDS: DOCUSATE SODIUM/SENNA 50/8.6MG TAB PO SCH (20:47)
[2019-08-04] MEDS: CEFEPIME 2,000 MG in SYRINGE 7.5 ML IV SCH ×2 (00:52→13:00)
[2019-08-04] MEDS ORDERED: COUGH DROP (SUGAR FREE) LOZ 24 LOZ/1 BOX BUCCAL ONE (01:01)
[2019-08-04 05:50] LABS: Basophils # (auto) 0.02 K/uL (0-0.2); Basophils % (auto) 0.3 %; Eosinophils # (auto) 0.33 K/uL (0-0.5); Eosinophils % (auto) 5.3 %; Hematocrit (blood only) 25.7 % (37-47); Hemoglobin 8.4 g/dL (12.0-16.0); Immature Granulocytes # (auto) 0.06 K/uL (0.00-0.02); Lymphocytes # (auto) 1.22 K/uL (1.2-3.4); Lymphocytes % (auto) 19.6 %; Mean Corpuscular Hemoglobin 30.5 pg (25-34); Mean Corpuscular Hgb Conc 32.7 g/dL (32-36); Mean Corpuscular Volume 93.5 fL (80-100); Mean Platelet Volume 10.3 fL (7.4-10.4); Monocytes # (auto) 0.74 K/uL (0.11-0.59); Monocytes % (auto) 11.9 %; Neutrophils # (auto) 3.86 K/uL (1.4-6.5); Neutrophils % (auto) 61.9 %; Platelet Count 187 K/uL (130-400); RDW Coefficient of Variation 13.9 % (11.5-14.5); RDW Standard Deviation 47.7 fL (36.4-46.3); Red Blood Count 2.75 M/uL (4.2-5.4); White Blood Count 6.23 K/uL (4.8-10.8)
[2019-08-04 06:23] LABS: BUN Creatinine Ratio 40.1 (10-20); Calcium 8.1 mg/dl (8.5-10.1); Creatinine Clr Calc Pharmacy 68.4 ml/min; Est GFR (African American) 102.2; Est GFR (Non-African American) 88.2; Potassium 3.7 mmol/L (3.5-5.1)
[2019-08-04] MEDS: OLANZAPINE 2.5 MG TAB PO SCH (08:09)
[2019-08-04] MEDS: ASPIRIN 81 MG ECTAB PO SCH ×2 (08:09→21:20)
[2019-08-04] MEDS: ACETAMINOPHEN 325 MG TAB PO SCH ×4 (08:12→21:25)
[2019-08-04] MEDS: NYSTATIN SUSP 500,000 U/5 ML UDC PO SCH ×4 (09:37→21:21)
--- NOTE | 2019-08-04 11:21 | Hospitalist Progress Note ---
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 Sequeira Lovenox/Heparin for DVT prophylaxis when ok with Ortho-has not been started yet as atrial fibrillation seems to be very transient Continue PT/OT and will need placement Will be transferred to [facility] today ATRIAL FIBRILLATION -ruled out based on 1 EKG after surgery, formal read pending no history in the past and seems to be reverted to sinus rhythm sinus tachycardia on tele continue IV fluid-Will discontinue IV fluid Repeat EKG did not show any atrial fibrillation Noted to have decreased breath sounds both sides of the lung Will get chest x-ray rule out any possibility of CHF No overt CHF Continue incentive spirometry ANEMIA, LIKELY ACUTE BLOOD LOSS 11.9 to 9.1 asymptomatic Hemoglobin remained stable at 8.7 on 08/02 Hypoxemia She has been requiring 2 L of oxygen to maintain saturation Chest x-ray did not show any CHF but did show atelectasis Continue oxygen for now Incentive spirometry PSEUDOMONAS UTI start Cefepine IV Pansensitive and will continue antibiotic for total of 3 days Will discontinue cefepime DYSPHAGIA reported by RN in AM no history as per Speech therapy eval ordered Passed bedside swallowing evaluation Complains to have hoarseness of voice without any pain and/or dysphagia Nystatin prescribed VIT D DEFICIENCY Vitd 5k weekly x 4 weeks then repeat Vit D in 4-6 weeks Continue regular supplemental vitamin D Major neurocognitive disorder due to Alzheimer's disease, probable, with behavioral disturbance: per admitting PA notes: Recent admission 07/13 to 07/[address] [facility] secondary to Alzheimer's with behavioral disturbance Consulted psych:Continue Zyprexa, mirtazapine, trazodone IM Haldol 3 mg as needed for severe agitation and behavioral disturbance/combative behavior PRN Lorazepam as needed -- remains Calm, cooperative this afternoon, at baseline mental status per patient's -- continue 1:1 with psych precautions given recent admission to [facility] --One-to-one observation discontinued --She seems to be stable without any delirium Hyperlipidemia: on statin in outpt setting hold for now Anxiety: prn lorazepam Primary open angle glaucoma: continue eye gtts DVT prophylaxis: SCD/TEDS Atrial fibrillation ruled out so no need to have any anticoagulation for that Disposition: admit to med/surg, 1:1 ordered with psych precautions given recent admission to [facility] One-to-one sitting has been discontinued Follow up: d/c to SNF when medically stable, cleared by Ortho Ortho Dr. Sequeira PCP Dr. Alexandra upon discharge Will be discharged this afternoon to [facility] 08/02 The patient was seen and examined in telemetry unit This is a 88-year-old female with significant past medical history of Alzheimer with behavioral disturbance, anxiety, hyperlipidemia, osteopenia, glaucoma, history of breast CA status post mastectomy who presents to ED from SNF secondary to inability to transfer and complaints of right lower extremity pain and and ended up with a right hip fracture She is status post ORIF on of this month She has had transient atrial fibrillation following surgery Denies any symptoms as of this morning Has been getting physical therapy 08/03 Patient was seen and examined in telemetry unit She complains to have hoarseness of voice since this morning Denies any other symptoms She did not go for physical therapy this morning 08/04 The patient was seen and examined in telemetry unit He complains today of hoarseness of voice but denies any other symptoms Denies any shortness of breath and/or palpitation No nausea and or vomiting Review of Systems Review of Systems: All systems reviewed and are unremarkable except as noted below Constitutional: + malaise and + weakness Musculoskeletal: Continues to have right hip pain on movement Physical Exam Physical Exam: Lying in bed comfortably Constitutional: + acute distress and + ill appearing Eyes: PERRL, conjunctivae normal, anicteric sclerae ENMT: external ear and nose normal, oropharynx normal Neck: trachea midline, no thyromegaly Respiratory: normal respiratory effort; no respiratory distress Auscultation: + diminished lung sounds (Bilaterally mostly at the bases) Cardiovascular: Rate/Rhythm: regular rate and regular rhythm Heart Sounds: no murmur Gastrointestinal (Abdomen): Inspection/Auscultation: abdomen normal to inspection and normal bowel sounds Musculoskeletal: Minimal pain with movement of the right hip Neurologic: moves all extremities; no focal motor deficits Lymphatic: no cervical or axillary lymphadenopathy Results & Data Vital Signs (Past 12 Hours) Vital Signs Temp Pulse Resp BP Pulse Ox 08/04/19 07:47 37.0 C 101 H 31 H 151/63 H 91 08/04/19 02:48 37.3 C 102 H 18 129/49 L 96 08/03/19 23:24 36.9 C 94 H 20 116/41 L 98 Laboratory Results Short CBC 08/04/19 Range/Units 05:22 WBC 6.23 (4.8-10.8) K/uL Hgb 8.4 L (12.0-16.0) g/dL Hct 25.7 L (37-47) % Plt Count 187 (130-400) K/uL BMP 08/04/19 05:22 Sodium 138 Potassium 3.7 Chloride 106 Carbon Dioxide 29 BUN 19 H Creatinine 0.47 L Glucose 92 Calcium 8.1 L Medications Administered Current Inpatient Medications Acetaminophen (Tylenol) 650 mg PO QID [facility] Stop: 08/29/19 17:37 Last Admin: 08/04/19 08:12 Dose: 650 mg Documented by: Aspirin (Ecotrin Ectab) 81 mg PO BID [facility] Stop: 08/31/19 20:59 Last Admin: 08/04/19 08:09 Dose: 81 mg Documented by: Bisacodyl (Dulcolax) 10 mg PA DAILY PRN PRN Reason: Constipation Stop: 08/29/19 17:37 Last Admin: 08/04/19 09:37 Dose: 10 mg Documented by: Ergocalciferol (Vitamin D2) 50,000 units PO Tu@1200 [facility] Stop: 08/31/19 11:59 Last Admin: 08/01/19 13:10 Dose: 50,000 units Documented by: Haloperidol Lactate (Haldol) 3 mg IM Q12H PRN PRN Reason: Agitation Stop: 08/29/19 17:37 Cefepime HCl 2,000 mg/ Syringe 20 mls @ 5 mls/min IV Q12H [facility] Stop: 08/11/19 12:59 Last Admin: 08/04/19 00:52 Dose: 5 mls/min Documented by: Latanoprost (Xalatan Oph) 1 drops OPB HS [facility] Stop: 08/29/19 20:59 Last Admin: 08/03/19 20:43 Dose: 1 drops Documented by: Lorazepam (Ativan) 0.5 mg PO Q6H PRN PRN Reason: Anxiety Stop: 08/29/19 17:37 Magnesium Hydroxide (Milk Of Magnesia) 30 ml PO DAILY PRN PRN Reason: Constipation Stop: 08/29/19 17:37 Last Admin: 08/04/19 09:37 Dose: 30 ml Documented by: Mirtazapine (Remeron) 7.5 mg PO [facility] Stop: 08/29/19 20:59 Last Admin: 08/03/19 20:42 Dose: 7.5 mg Documented by: Miscellaneous Information (Cefepime Consult Active) 1 ea N/A UD PRN PRN Reason: Consult Stop: 08/31/19 12:38 Morphine Sulfate (Morphine Sulfate) 2 mg IV Q4H PRN PRN Reason: MODERATE Pain (Scale 4,5,6) Stop: 08/13/19 17:37 Naloxone HCl (Narcan) 0.1 mg IV UD PRN PRN Reason: Opiate Overdose Stop: 08/29/19 17:37 Nystatin (Mycostatin) 10 ml PO QID [facility] Stop: 08/14/19 08:59 Last Admin: 08/04/19 09:37 Dose: 10 ml Documented by: Olanzapine (Zyprexa) 2.[address] [facility] Stop: 08/30/19 08:59 Last Admin: 08/04/19 08:09 Dose: 2.5 mg Documented by: Olanzapine (Zyprexa) 5 mg PO [facility] Stop: 08/29/19 20:59 Last Admin: 08/03/19 20:42 Dose: 5 mg Documented by: Ondansetron HCl (Zofran) 4 mg IV Q6H PRN PRN Reason: Nausea And Vomiting Stop: 08/29/19 17:37 Last Admin: 08/01/19 11:41 Dose: 4 mg Documented by: Oxycodone HCl (Roxicodone Immediate Rel) 5 mg PO Q4H PRN PRN Reason: MODERATE Pain (Scale 4,5,6) Stop: 08/13/19 17:37 Senna/Docusate Sodium (Senokot S) 2 tab PO [facility] Stop: 08/29/19 20:59 Last Admin: 08/03/19 20:47 Dose: 2 tab Documented by: Trazodone HCl (Desyrel) 50 mg PO [facility] Stop: 08/29/19 20:59 Last Admin: 08/03/19 20:41 Dose: 50 mg Documented by:
[2019-08-04] MEDS ORDERED: bisacodyL 10 MG SUPP PR STA (13:43)
[2019-08-04] MEDS ORDERED: SOD PHOSPHATE/SOD BIPHOSPHATE ENEMA 132 ML BTL PR ONE (15:45)
[2019-08-04] MEDS: OLANZapine 5 MG TABLET PO SCH (21:20)
[2019-08-04] MEDS: TRAZODONE HCL 50 MG TAB PO SCH (21:20)
[2019-08-04] MEDS: DOCUSATE SODIUM/SENNA 50/8.6MG TAB PO SCH (21:21)
[2019-08-04] MEDS: LATANOPROST 0.005% OP SOLN 2.5 ML BTL OPB SCH (21:21)
[2019-08-04] MEDS: MIRTAZAPINE TAB 15 MG TAB PO SCH (21:22)
[2019-08-05] MEDS: NYSTATIN SUSP 500,000 U/5 ML UDC PO SCH ×4 (09:45→20:48)
[2019-08-05] MEDS: ASPIRIN 81 MG ECTAB PO SCH ×2 (09:48→20:47)
[2019-08-05] MEDS: OLANZAPINE 2.5 MG TAB PO SCH (09:48)
[2019-08-05] MEDS: ACETAMINOPHEN 325 MG TAB PO SCH ×4 (09:49→22:52)
--- NOTE | 2019-08-05 13:41 | Hospitalist Progress Note ---
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 Sequeira Lovenox/Heparin for DVT prophylaxis when ok with Ortho-has not been started yet as atrial fibrillation seems to be very transient Continue PT/OT and will need placement Awaiting insurance approval before she can be discharged to rehab Hip pain is controlled without requiring any narcotics ATRIAL FIBRILLATION -ruled out based on 1 EKG after surgery, formal read pending no history in the past and seems to be reverted to sinus rhythm sinus tachycardia on tele continue IV fluid-Will discontinue IV fluid Repeat EKG did not show any atrial fibrillation Noted to have decreased breath sounds both sides of the lung Will get chest x-ray rule out any possibility of CHF No overt CHF Continue incentive spirometry Clinically no symptoms of fluid overload ANEMIA, LIKELY ACUTE BLOOD LOSS 11.9 to 9.1 asymptomatic Hemoglobin remained stable at 8.7 on 08/02 Hypoxemia She has been requiring 2 L of oxygen to maintain saturation Chest x-ray did not show any CHF but did show atelectasis Continue oxygen for now Incentive spirometry PSEUDOMONAS UTI start Cefepine IV Pansensitive and will continue antibiotic for total of 3 days Will discontinue cefepime DYSPHAGIA reported by RN in AM no history as per Speech therapy eval ordered Passed bedside swallowing evaluation Complains to have hoarseness of voice without any pain and/or dysphagia Nystatin prescribed Hoarseness of voice is a little bit better today VIT D DEFICIENCY Vitd 5k weekly x 4 weeks then repeat Vit D in 4-6 weeks Continue regular supplemental vitamin D Major neurocognitive disorder due to Alzheimer's disease, probable, with behavioral disturbance: per admitting PA notes: Recent admission 07/13 to 07/27 to [facility] secondary to Alzheimer's with behavioral disturbance Consulted psych:Continue Zyprexa, mirtazapine, trazodone IM Haldol 3 mg as needed for severe agitation and behavioral disturbance/combative behavior PRN Lorazepam as needed -- remains Calm, cooperative this afternoon, at baseline mental status per patient's -- continue 1:1 with psych precautions given recent admission to [facility] --One-to-one observation discontinued --She seems to be stable without any delirium Hyperlipidemia: on statin in outpt setting hold for now Anxiety: prn lorazepam Primary open angle glaucoma: continue eye gtts DVT prophylaxis: SCD/TEDS Atrial fibrillation ruled out so no need to have any anticoagulation for that Disposition: admit to med/surg, 1:1 ordered with psych precautions given recent admission to [facility] One-to-one sitting has been discontinued Will discharge to rehab after insurance approval Follow up: d/c to SNF when medically stable, cleared by Ortho Ortho Dr. Sequeira PCP Dr. Alexandra upon discharge Will be discharged this afternoon to [facility] 08/02 The patient was seen and examined in telemetry unit This is a 88-year-old female with significant past medical history of Alzheimer with behavioral disturbance, anxiety, hyperlipidemia, osteopenia, glaucoma, history of breast CA status post mastectomy who presents to ED from SNF secondary to inability to transfer and complaints of right lower extremity pain and and ended up with a right hip fracture She is status post ORIF on of this month She has had transient atrial fibrillation following surgery Denies any symptoms as of this morning Has been getting physical therapy 08/03 Patient was seen and examined in telemetry unit She complains to have hoarseness of voice since this morning Denies any other symptoms She did not go for physical therapy this morning 08/04 The patient was seen and examined in telemetry unit He complains today of hoarseness of voice but denies any other symptoms Denies any shortness of breath and/or palpitation No nausea and or vomiting 08/05 The patient was seen and examined in medical floor She is a little confused today secondary to her dementia Denies any significant symptoms Awaiting insurance approval to go to rehab Review of Systems Review of Systems: All systems reviewed and are unremarkable except as noted below Constitutional: + malaise and + weakness Musculoskeletal: Continues to have right hip pain on movement Physical Exam Physical Exam: No apparent distress at rest and sitting on a chair Constitutional: + acute distress and + ill appearing Eyes: PERRL, conjunctivae normal, anicteric sclerae ENMT: external ear and nose normal, oropharynx normal Neck: trachea midline, no thyromegaly Respiratory: normal respiratory effort; no respiratory distress Auscultation: + diminished lung sounds (Bilaterally mostly at the bases) Cardiovascular: Rate/Rhythm: regular rate and regular rhythm Heart Sounds: no murmur Gastrointestinal (Abdomen): Inspection/Auscultation: abdomen normal to inspection and normal bowel sounds Musculoskeletal: No acute arthritis in any joints Neurologic: moves all extremities; no focal motor deficits Alert and awake. Pleasantly confused. Occasional confusion secondary to dementia Lymphatic: no cervical or axillary lymphadenopathy Results & Data Vital Signs (Past 12 Hours) Vital Signs Pulse Resp BP Pulse Ox 08/05/19 11:40 97 08/05/19 06:51 94 H 16 128/65 100 Medications Administered Current Inpatient Medications Acetaminophen (Tylenol) 650 mg PO QID [facility] Stop: 08/29/19 17:37 Last Admin: 08/05/19 13:30 Dose: 650 mg Documented by: Aspirin (Ecotrin Ectab) 81 mg PO BID [facility] Stop: 08/31/19 20:59 Last Admin: 08/05/19 09:48 Dose: 81 mg Documented by: Bisacodyl (Dulcolax) 10 mg UT DAILY PRN PRN Reason: Constipation Stop: 08/29/19 17:37 Last Admin: 08/04/19 09:37 Dose: 10 mg Documented by: Ergocalciferol (Vitamin D2) 50,000 units PO Tu@1200 [facility] Stop: 08/31/19 11:59 Last Admin: 08/01/19 13:10 Dose: 50,000 units Documented by: Haloperidol Lactate (Haldol) 3 mg IM Q12H PRN PRN Reason: Agitation Stop: 08/29/19 17:37 Latanoprost (Xalatan Oph) 1 drops OPB [facility] Stop: 08/29/19 20:59 Last Admin: 08/04/19 21:21 Dose: 1 drops Documented by: Lorazepam (Ativan) 0.5 mg PO Q6H PRN PRN Reason: Anxiety Stop: 08/29/19 17:37 Magnesium Hydroxide (Milk Of Magnesia) 30 ml PO DAILY PRN PRN Reason: Constipation Stop: 08/29/19 17:37 Last Admin: 08/04/19 09:37 Dose: 30 ml Documented by: Mirtazapine (Remeron) 7.5 mg PO [facility] Stop: 08/29/19 20:59 Last Admin: 08/04/19 21:22 Dose: 7.5 mg Documented by: Morphine Sulfate (Morphine Sulfate) 2 mg IV Q4H PRN PRN Reason: MODERATE Pain (Scale 4,5,6) Stop: 08/13/19 17:37 Naloxone HCl (Narcan) 0.1 mg IV UD PRN PRN Reason: Opiate Overdose Stop: 08/29/19 17:37 Nystatin (Mycostatin) 10 ml PO QID [facility] Stop: 08/14/19 08:59 Last Admin: 08/05/19 13:28 Dose: 10 ml Documented by: Olanzapine (Zyprexa) 2.5 mg PO QAM [facility] Stop: 08/30/19 08:59 Last Admin: 08/05/19 09:48 Dose: 2.5 mg Documented by: Olanzapine (Zyprexa) 5 mg PO HS [facility] Stop: 08/29/19 20:59 Last Admin: 08/04/19 21:20 Dose: 5 mg Documented by: Ondansetron HCl (Zofran) 4 mg IV Q6H PRN PRN Reason: Nausea And Vomiting Stop: 08/29/19 17:37 Last Admin: 08/01/19 11:41 Dose: 4 mg Documented by: Senna/Docusate Sodium (Senokot S) 2 tab PO [facility] Stop: 08/29/19 20:59 Last Admin: 08/04/19 21:21 Dose: Not Given Documented by: Trazodone HCl (Desyrel) 50 mg PO [facility] Stop: 08/29/19 20:59 Last Admin: 08/04/19 21:20 Dose: 50 mg Documented by:
[2019-08-05] MEDS: TRAZODONE HCL 50 MG TAB PO SCH (20:47)
[2019-08-05] MEDS: LATANOPROST 0.005% OP SOLN 2.5 ML BTL OPB SCH ×2 (20:47→22:13)
[2019-08-05] MEDS: DOCUSATE SODIUM/SENNA 50/8.6MG TAB PO SCH (20:48)
[2019-08-05] MEDS: OLANZapine 5 MG TABLET PO SCH (20:48)
[2019-08-05] MEDS: MIRTAZAPINE TAB 15 MG TAB PO SCH (20:48)
[2019-08-06] MEDS: ASPIRIN 81 MG ECTAB PO SCH ×2 (08:50→19:49)
[2019-08-06] MEDS: NYSTATIN SUSP 500,000 U/5 ML UDC PO SCH ×4 (08:50→20:11)
[2019-08-06] MEDS: ACETAMINOPHEN 325 MG TAB PO SCH ×4 (08:52→19:51)
[2019-08-06] MEDS: OLANZAPINE 2.5 MG TAB PO SCH (08:52)
--- NOTE | 2019-08-06 13:09 | Hospitalist Progress Note ---
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 Sequeira Lovenox/Heparin for DVT prophylaxis when ok with Ortho-has not been started yet as atrial fibrillation seems to be very transient Continue PT/OT and will need placement Awaiting insurance approval before she can be discharged to rehab Hip pain is controlled without requiring any narcotics Awaiting to go to [facility] ATRIAL FIBRILLATION -ruled out based on 1 EKG after surgery, formal read pending no history in the past and seems to be reverted to sinus rhythm sinus tachycardia on tele continue IV fluid-Will discontinue IV fluid Repeat EKG did not show any atrial fibrillation Noted to have decreased breath sounds both sides of the lung Will get chest x-ray rule out any possibility of CHF No overt CHF Continue incentive spirometry Clinically no symptoms of fluid overload Heart rate is controlled ANEMIA, LIKELY ACUTE BLOOD LOSS 11.9 to 9.1 asymptomatic Hemoglobin remained stable at 8.7 on 08/02 We will check hemoglobin tomorrow Hypoxemia She has been requiring 2 L of oxygen to maintain saturation Chest x-ray did not show any CHF but did show atelectasis Continue oxygen for now Incentive spirometry PSEUDOMONAS UTI start Cefepine IV Pansensitive and will continue antibiotic for total of 3 days Will discontinue cefepime DYSPHAGIA reported by RN in AM no history as per Speech therapy eval ordered Passed bedside swallowing evaluation Complains to have hoarseness of voice without any pain and/or dysphagia Nystatin prescribed Hoarseness of voice is a little bit better today Hoarseness of voice has been improving VIT D DEFICIENCY Vitd 5k weekly x 4 weeks then repeat Vit D in 4-6 weeks Continue regular supplemental vitamin D Major neurocognitive disorder due to Alzheimer's disease, probable, with behavioral disturbance: per admitting PA notes: Recent admission 07/13 to 07/27 to [facility] secondary to Alzheimer's with behavioral disturbance Consulted psych:Continue Zyprexa, mirtazapine, trazodone IM Haldol 3 mg as needed for severe agitation and behavioral disturbance/combative behavior PRN Lorazepam as needed -- remains Calm, cooperative this afternoon, at baseline mental status per patient's -- continue 1:1 with psych precautions given recent admission to [facility] --One-to-one observation discontinued --She seems to be stable without any delirium Hyperlipidemia: on statin in outpt setting hold for now Anxiety: prn lorazepam Primary open angle glaucoma: continue eye gtts DVT prophylaxis: SCD/TEDS Atrial fibrillation ruled out so no need to have any anticoagulation for that Disposition: admit to med/surg, 1:1 ordered with psych precautions given recent admission to [facility] One-to-one sitting has been discontinued Will discharge to rehab after insurance approval Follow up: d/c to SNF when medically stable, cleared by Ortho Ortho Dr. Sequeira PCP Dr. Alexandra upon discharge Will be going for rehab after approval Subjective 08/02 The patient was seen and examined in telemetry unit This is a 88-year-old female with significant past medical history of Alzheimer with behavioral disturbance, anxiety, hyperlipidemia, osteopenia, glaucoma, history of breast CA status post mastectomy who presents to ED from SNF secondary to inability to transfer and complaints of right lower extremity pain and and ended up with a right hip fracture She is status post ORIF on of this month She has had transient atrial fibrillation following surgery Denies any symptoms as of this morning Has been getting physical therapy 08/03 Patient was seen and examined in telemetry unit She complains to have hoarseness of voice since this morning Denies any other symptoms She did not go for physical therapy this morning 08/04 The patient was seen and examined in telemetry unit He complains today of hoarseness of voice but denies any other symptoms Denies any shortness of breath and/or palpitation No nausea and or vomiting 08/05 The patient was seen and examined in medical floor She is a little confused today secondary to her dementia Denies any significant symptoms Awaiting insurance approval to go to rehab 08/06 The patient was seen and examined in presence of the family members She remains stable She has been waiting for insurance approval to go to [facility] Denies any symptoms today Review of Systems Review of Systems: All systems reviewed and are unremarkable except as noted below Constitutional: + malaise and + weakness Musculoskeletal: Continues to have right hip pain on movement Physical Exam Physical Exam: Sitting on a chair without any discomfort Constitutional: + acute distress and + ill appearing Eyes: PERRL, conjunctivae normal, anicteric sclerae ENMT: external ear and nose normal, oropharynx normal Neck: trachea midline, no thyromegaly Respiratory: normal respiratory effort; no respiratory distress Auscultation: + diminished lung sounds (Bilaterally mostly at the bases) Cardiovascular: Rate/Rhythm: regular rate and regular rhythm Heart Sounds: no murmur Gastrointestinal (Abdomen): Inspection/Auscultation: abdomen normal to inspection and normal bowel sounds Musculoskeletal: Denies any significant pain in any of the joints Neurologic: moves all extremities; no focal motor deficits Lymphatic: no cervical or axillary lymphadenopathy Results & Data Vital Signs (Past 12 Hours) Vital Signs Temp Pulse Resp BP Pulse Ox 08/06/19 07:18 36.9 C 100 H 18 126/70 91
[2019-08-06] MEDS: MIRTAZAPINE TAB 15 MG TAB PO SCH (19:47)
[2019-08-06] MEDS: TRAZODONE HCL 50 MG TAB PO SCH (19:48)
[2019-08-06] MEDS: DOCUSATE SODIUM/SENNA 50/8.6MG TAB PO SCH (19:51)
[2019-08-06] MEDS: OLANZapine 5 MG TABLET PO SCH (20:09)
[2019-08-06] MEDS: LATANOPROST 0.005% OP SOLN 2.5 ML BTL OPB SCH (20:11)
[2019-08-07 08:03] LABS: Basophils # (auto) 0.03 K/uL (0-0.2); Basophils % (auto) 0.6 %; Eosinophils # (auto) 0.25 K/uL (0-0.5); Eosinophils % (auto) 4.9 %; Hematocrit (blood only) 26.4 % (37-47); Hemoglobin 8.5 g/dL (12.0-16.0); Immature Granulocytes # (auto) 0.05 K/uL (0.00-0.02); Lymphocytes # (auto) 0.95 K/uL (1.2-3.4); Lymphocytes % (auto) 18.7 %; Mean Corpuscular Hemoglobin 30.1 pg (25-34); Mean Corpuscular Hgb Conc 32.2 g/dL (32-36); Mean Corpuscular Volume 93.6 fL (80-100); Mean Platelet Volume 9.5 fL (7.4-10.4); Monocytes # (auto) 0.44 K/uL (0.11-0.59); Monocytes % (auto) 8.6 %; Neutrophils # (auto) 3.37 K/uL (1.4-6.5); Neutrophils % (auto) 66.2 %; Platelet Count 285 K/uL (130-400); RDW Coefficient of Variation 13.9 % (11.5-14.5); RDW Standard Deviation 47.5 fL (36.4-46.3); Red Blood Count 2.82 M/uL (4.2-5.4); White Blood Count 5.09 K/uL (4.8-10.8)
[2019-08-07 08:30] LABS: BUN Creatinine Ratio 32.9 (10-20); Calcium 8.4 mg/dl (8.5-10.1); Creatinine Clr Calc Pharmacy 76.6 ml/min; Est GFR (African American) 106.1; Est GFR (Non-African American) 91.5; Potassium 3.5 mmol/L (3.5-5.1)
[2019-08-07] MEDS: NYSTATIN SUSP 500,000 U/5 ML UDC PO SCH ×2 (09:19→12:40)
[2019-08-07] MEDS: ASPIRIN 81 MG ECTAB PO SCH (09:19)
[2019-08-07] MEDS: ACETAMINOPHEN 325 MG TAB PO SCH ×2 (09:25→12:40)
[2019-08-07] MEDS: OLANZAPINE 2.5 MG TAB PO SCH (09:59)
--- NOTE | 2019-08-07 12:04 | Hospitalist Progress Note ---
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 Sequeira Lovenox/Heparin for DVT prophylaxis when ok with Ortho-has not been started yet as atrial fibrillation seems to be very transient Continue PT/OT and will need placement Awaiting insurance approval before she can be discharged to rehab Hip pain is controlled without requiring any narcotics Awaiting to go to [facility] Will be going to [facility] this afternoon ATRIAL FIBRILLATION -ruled out based on 1 EKG after surgery, formal read pending no history in the past and seems to be reverted to sinus rhythm sinus tachycardia on tele continue IV fluid-Will discontinue IV fluid Repeat EKG did not show any atrial fibrillation Noted to have decreased breath sounds both sides of the lung Will get chest x-ray rule out any possibility of CHF No overt CHF Continue incentive spirometry Clinically no symptoms of fluid overload Heart rate is controlled ANEMIA, LIKELY ACUTE BLOOD LOSS 11.9 to 9.1 asymptomatic Hemoglobin remained stable at 8.7 on 08/02 We will check hemoglobin tomorrow Hemoglobin remains stable at 8.5 Hypoxemia She has been requiring 2 L of oxygen to maintain saturation Chest x-ray did not show any CHF but did show atelectasis Continue oxygen for now Incentive spirometry PSEUDOMONAS UTI start Cefepine IV Pansensitive and will continue antibiotic for total of 3 days Will discontinue cefepime DYSPHAGIA reported by RN in AM no history as per Speech therapy eval ordered Passed bedside swallowing evaluation Complains to have hoarseness of voice without any pain and/or dysphagia Nystatin prescribed Hoarseness of voice is a little bit better today Hoarseness of voice has been improving VIT D DEFICIENCY Vitd 5k weekly x 4 weeks then repeat Vit D in 4-6 weeks Continue regular supplemental vitamin D Major neurocognitive disorder due to Alzheimer's disease, probable, with behavioral disturbance: per admitting PA notes: Recent admission 07/13 to 07/27 to [facility] secondary to Alzheimer's with behavioral disturbance Consulted psych:Continue Zyprexa, mirtazapine, trazodone IM Haldol 3 mg as needed for severe agitation and behavioral disturbance/combative behavior PRN Lorazepam as needed -- remains Calm, cooperative this afternoon, at baseline mental status per patient's -- continue 1:1 with psych precautions given recent admission to [facility] --One-to-one observation discontinued --She seems to be stable without any delirium Hyperlipidemia: on statin in outpt setting hold for now Anxiety: prn lorazepam Primary open angle glaucoma: continue eye gtts DVT prophylaxis: SCD/TEDS Atrial fibrillation ruled out so no need to have any anticoagulation for that Disposition: admit to med/surg, 1:1 ordered with psych precautions given recent admission to [facility] One-to-one sitting has been discontinued Will discharge to rehab after insurance approval Follow up: d/c to SNF when medically stable, cleared by Ortho Ortho Dr. Sequeira PCP Dr. Alexandra upon discharge She will be discharged today Has had a discussion with the family members in detail on 08/06 Subjective 08/02 The patient was seen and examined in telemetry unit This is a 88-year-old female with significant past medical history of Alzheimer with behavioral disturbance, anxiety, hyperlipidemia, osteopenia, glaucoma, history of breast CA status post mastectomy who presents to ED from SNF secondary to inability to transfer and complaints of right lower extremity pain and and ended up with a right hip fracture She is status post ORIF on of this month She has had transient atrial fibrillation following surgery Denies any symptoms as of this morning Has been getting physical therapy 08/03 Patient was seen and examined in telemetry unit She complains to have hoarseness of voice since this morning Denies any other symptoms She did not go for physical therapy this morning 08/04 The patient was seen and examined in telemetry unit He complains today of hoarseness of voice but denies any other symptoms Denies any shortness of breath and/or palpitation No nausea and or vomiting 08/05 The patient was seen and examined in medical floor She is a little confused today secondary to her dementia Denies any significant symptoms Awaiting insurance approval to go to rehab 08/06 The patient was seen and examined in presence of the family members She remains stable She has been waiting for insurance approval to go to [facility] Denies any symptoms today 08/07 The patient was seen and examined in medical floor She has been stable for the last few days Denies any symptoms as of today Review of Systems Review of Systems: All systems reviewed and are unremarkable except as noted below Constitutional: + malaise and + weakness Musculoskeletal: Continues to have right hip pain on movement Physical Exam Physical Exam: Sitting on a chair without any symptoms Constitutional: + acute distress and + ill appearing Eyes: PERRL, conjunctivae normal, anicteric sclerae ENMT: external ear and nose normal, oropharynx normal Neck: trachea midline, no thyromegaly Respiratory: normal respiratory effort; no respiratory distress Auscultation: + diminished lung sounds (Bilaterally mostly at the bases) Cardiovascular: Rate/Rhythm: regular rate and regular rhythm Heart Sounds: no murmur Gastrointestinal (Abdomen): Inspection/Auscultation: abdomen normal to inspection and normal bowel sounds Neurologic: moves all extremities; no focal motor deficits Lymphatic: no cervical or axillary lymphadenopathy Results & Data Vital Signs (Past 12 Hours) Vital Signs Temp Pulse Resp BP Pulse Ox 08/07/19 07:42 36.7 C 77 16 130/70 93 08/07/19 00:15 36.5 C 78 16 118/57 L 91 Laboratory Results Short CBC 08/07/19 Range/Units 07:43 WBC 5.09 (4.8-10.8) K/uL Hgb 8.5 L (12.0-16.0) g/dL Hct 26.4 L (37-47) % Plt Count 285 (130-400) K/uL BMP 08/07/19 07:43 Sodium 139 Potassium 3.5 Chloride 105 Carbon Dioxide 29 BUN 14 Creatinine 0.42 L Glucose 88 Calcium 8.4 L Medications Administered Current Inpatient Medications Acetaminophen (Tylenol) 650 mg PO QID [facility] Stop: 08/29/19 17:37 Last Admin: 08/07/19 09:25 Dose: 650 mg Documented by: Aspirin (Ecotrin Ectab) 81 mg PO BID [facility] Stop: 08/31/19 20:59 Last Admin: 08/07/19 09:19 Dose: 81 mg Documented by: Bisacodyl (Dulcolax) 10 mg [facility] DAILY PRN PRN Reason: Constipation Stop: 08/29/19 17:37 Last Admin: 08/04/19 09:37 Dose: 10 mg Documented by: Ergocalciferol (Vitamin D2) 50,000 units PO Tu@1200 [facility] Stop: 08/31/19 11:59 Last Admin: 08/01/19 13:10 Dose: 50,000 units Documented by: Haloperidol Lactate (Haldol) 3 mg IM Q12H PRN PRN Reason: Agitation Stop: 08/29/19 17:37 Latanoprost (Xalatan Oph) 1 drops OPB [facility] Stop: 08/29/19 20:59 Last Admin: 08/06/19 20:11 Dose: 1 drops Documented by: Lorazepam (Ativan) 0.5 mg PO Q6H PRN PRN Reason: Anxiety Stop: 08/29/19 17:37 Magnesium Hydroxide (Milk Of Magnesia) 30 ml PO DAILY PRN PRN Reason: Constipation Stop: 08/29/19 17:37 Last Admin: 08/04/19 09:37 Dose: 30 ml Documented by: Mirtazapine (Remeron) 7.5 mg PO [facility] Stop: 08/29/19 20:59 Last Admin: 08/06/19 19:47 Dose: 7.5 mg Documented by: Morphine Sulfate (Morphine Sulfate) 2 mg IV Q4H PRN PRN Reason: MODERATE Pain (Scale 4,5,6) Stop: 08/13/19 17:37 Naloxone HCl (Narcan) 0.1 mg IV UD PRN PRN Reason: Opiate Overdose Stop: 08/29/19 17:37 Nystatin (Mycostatin) 10 ml PO QID [facility] Stop: 08/14/19 08:59 Last Admin: 08/07/19 09:19 Dose: 10 ml Documented by: [facility] ([facility]re[facility]) [facility] Stop: 08/30/19 08:59 Last Admin: 08/07/19 09:59 Dose: 2.5 mg Documented by: Olanzapine (Zyprexa) 5 mg PO [facility] Stop: 08/29/19 20:59 Last Admin: 08/06/19 20:09 Dose: 5 mg Documented by: Ondansetron HCl (Zofran) 4 mg IV Q6H PRN PRN Reason: Nausea And Vomiting Stop: 08/29/19 17:37 Last Admin: 08/01/19 11:41 Dose: 4 mg Documented by: Senna/Docusate Sodium (Senokot S) 2 tab PO [facility] Stop: 08/29/19 20:59 Last Admin: 08/06/19 19:51 Dose: 2 tab Documented by: Trazodone HCl (Desyrel) 50 mg PO [facility] Stop: 08/29/19 20:59 Last Admin: 08/06/19 19:48 Dose: 50 mg Documented by:
--- NOTE | 2019-08-08 08:19 | Discharge Summary ---
Date of Service August 08, 2019 Admission HPI Per Admitting Provider Buffy Pradhan" Serafin is an 88-year-old female admitted medically on 07/30/19 after presenting to the ED with right leg pain. Patient was found during ED work-up to have a right displaced femoral neck fracture, and was admitted to the hospitalist service for further work-up and orthopedic evaluation. Patient has reported history of Alzheimer's with behavioral disturbance, anxiety, glaucoma, hyperlipidemia, and history of breast cancer. Psychiatric consultation was requested to evaluate patient for reportedly increased agitation and medication recommendations to manage behavior. It was reported that patient was hospitalized on the [facility] from 07/13/2019 to 07/27/2019 due to combative behavior directed towards her . Medication adjustments were made, and patient was reportedly transferred to [facility] at time of discharge. [facility] prior to presenting to the ED for right lower extremity pain. Records from [facility] were requested and reviewed. They indicate the patient presented to their facility on a 302 involuntary psychiatric commitment for combative behavior and worsening dementia with agitation. Patient's home dose of quetiapine was discontinued, and olanzapine was initiated to manage behaviors related to dementia diagnosis. Discharge summary indicates that patient was calm and cooperative after these medication adjustments were made. She did continue to verbalize visual hallucinations, though these reportedly were not impacting patient's ability to function appropriately. Collateral information from [facility] suggest that patient does take longer to comprehend explanation of nursing interventions. Early on in patient's transfer, it was reported she was uncooperative with medication administration and nursing interventions. It was found that patient responded best when interventions were clearly explained, and she was given time to process the actions to be performed. Patient was seen today on psychiatric consult service to assess behaviors and make any necessary medication recommendations. Patient was observed to be laying in bed, with seated at bedside. Patient initially was unsure who the guest in her room was, when asked if this was her , she states "my ? I have some many, I do not know." Patient was quickly able to confirm her 's identity, even calling him by name. Patient did verbalize willingness to have present during evaluation. When asked how she was feeling, she states "really good, I hope." Patient was unable to verbalize si tuation that led to her admission, frequently stating "I do not remember." Patient was asked how she has been adjusting to [facility], to which she states "I guess I am not crazy about it." Attempts were made to gather collateral information from patient's , with patient's permission. During conversation, patient interrupts and states "I will speak for myself here, they changed my medication at that place and it bothered me." Patient is unable to verbalize whether she feels the medication change has been helpful or harmful. Patient does state "I understand that sometimes I overreact, and I am trying to fix that." She does indicate that she feels safer with her in her presence. Patient verbalizes many times "they think I am losing it, that is why they gave me that medication. I am not losing it." Patient does verbalize to this provider that she loves to dance, and she will do what ever it takes to begin dancing again. She spent the remainder of our conversation focused on the idea of not currently being allowed to dance, and wanting to know who is in charge of this decision. Patient asks multiple times during conversation where she is. Patient does not verbalize feeling safe and comfortable in the hospital. She denies suicidal ideation. Patient also denies auditory or visual hallucinations at this time. Admission Exam Per Admitting Provider Physical Exam: Constitutional: Thin, petite, elderly, female, very agitated, does not answer questions appropriately, vitals as above, Head: Normocephalic, Atraumatic Eyes: PERRL, conjunctivae normal, anicteric sclerae ENMT: external ear and nose normal, oropharynx normal Neck: trachea midline, no thyromegaly normal visual inspection Respiratory: Poor respiratory effort secondary to patient not following commands, lungs clear to auscultation, no wheeze, rales, rhonchi. no accessory muscle use Cardiovascular: Tachycardic rate, regular rhythm, no murmur, no edema Vessels: no JVD or carotid bruit Chest: normal inspection of chest Abdomen: normal bowel sounds, soft, nontender, no hepatosplenomegaly, positive ventral abdominal scar Musculoskeletal: no cyanosis or clubbing, right lower extremity shortened, externally rotated, unable to move right lower extremity, active range of motion to bilateral upper extremities and left lower extremity Skin: no rashes, warm and dry normal turgor Neurologic: PERRL, EOMI, accommodation nl, no face palsy, no dysarthria CN's II-XI intact bilaterally and moves all extremities Psychiatric: A+O to self only, euthymic affect Lymphatic: no cervical or axillary lymphadenopathy : deferred Principal Diagnosis Right hip fracture status post ORIF on 07/31/2019, Alzheimer's disease, UTI- treated Discharge Exam Constitutional + acute distress and + ill appearing Eyes PERRL, conjunctivae normal, anicteric sclerae ENMT external ear and nose normal, oropharynx normal Neck trachea midline, no thyromegaly Respiratory normal respiratory effort; no respiratory distress Auscultation: + diminished lung sounds (Bilaterally mostly at the bases) Cardiovascular Rate/Rhythm: regular rate and regular rhythm Heart Sounds: no murmur Gastrointestinal (Abdomen) Inspection/Auscultation: abdomen normal to inspection and normal bowel sounds Neurologic moves all extremities; no focal motor deficits Lymphatic no cervical or axillary lymphadenopathy Discharge Data Allergies Allergy/AdvReac Type Severity Reaction Status Date / Time alendronate sodium Allergy Unknown Verified 07/30/19 14:46 ibuprofen Allergy Unknown Verified 07/30/19 14:46 simvastatin [From Zocor] Allergy Unknown Verified 07/30/19 14:46 pravastatin [From Pravachol] AdvReac Unknown Verified 07/30/19 14:46 rosuvastatin [From Crestor] AdvReac Unknown Verified 07/30/19 14:46 Consultations 07/30/19 14:31 ED Decision to Admit Stat 07/30/19 15:32 Consult Anesthesiology Routine Consult Orthopedic Surgery Routine Consult Psychiatry Routine 07/30/19 17:38 Consult Case Management - Discharge Planning Routine Procedures Performed Operation Date: 07/31/19 14:00 Actual Procedures p Right Hip Hemiarthroplasty(Right) - Pedro Sequeira DO Hospital Course (1) Hip fracture, right: RIGHT HIP FRACTURE Seems to be spontaneous right hip fracture 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 Sequeira Lovenox/Heparin for DVT prophylaxis when ok with Ortho-has not been started yet as atrial fibrillation seems to be very transient Continue PT/OT and will need placement Awaiting insurance approval before she can be discharged to rehab Hip pain is controlled without requiring any narcotics Awaiting to go to [facility] Will be going to [facility] this afternoon ATRIAL FIBRILLATION -ruled out based on 1 EKG after surgery, formal read pending no history in the past and seems to be reverted to sinus rhythm sinus tachycardia on tele continue IV fluid-Will discontinue IV fluid Repeat EKG did not show any atrial fibrillation Noted to have decreased breath sounds both sides of the lung Will get chest x-ray rule out any possibility of CHF No overt CHF Continue incentive spirometry Clinically no symptoms of fluid overload Heart rate is controlled ANEMIA, LIKELY ACUTE BLOOD LOSS 11.9 to 9.1 asymptomatic Hemoglobin remained stable at 8.7 on 08/02 We will check hemoglobin tomorrow Hemoglobin remains stable at 8.5 Hypoxemia She has been requiring 2 L of oxygen to maintain saturation Chest x-ray did not show any CHF but did show atelectasis Continue oxygen for now Incentive spirometry PSEUDOMONAS UTI start Cefepine IV Pansensitive and will continue antibiotic for total of 3 days Will discontinue cefepime DYSPHAGIA reported by RN in AM no history as per Speech therapy eval ordered Passed bedside swallowing evaluation Complains to have hoarseness of voice without any pain and/or dysphagia Nystatin prescribed Hoarseness of voice is a little bit better today Hoarseness of voice has been improving VIT D DEFICIENCY Vitd 5k weekly x 4 weeks then repeat Vit D in 4-6 weeks Continue regular supplemental vitamin D Major neurocognitive disorder due to Alzheimer's disease, probable, with behavioral disturbance: per admitting PA notes: Recent admission 07/13 to 07/27 to [facility] secondary to Alzheimer's with behavioral disturbance Consulted psych:Continue Zyprexa, mirtazapine, trazodone IM Haldol 3 mg as needed for severe agitation and behavioral disturbance/combative behavior PRN Lorazepam as needed -- remains Calm, cooperative this afternoon, at baseline mental status per patient's -- continue 1:1 with psych precautions given recent admission to [facility] --One-to-one observation discontinued --She seems to be stable without any delirium Hyperlipidemia: on statin in outpt setting hold for now Anxiety: prn lorazepam Primary open angle glaucoma: continue eye gtts DVT prophylaxis: SCD/TEDS Atrial fibrillation ruled out so no need to have any anticoagulation for that Disposition: admit to med/surg, 1:1 ordered with psych precautions given recent admission to [facility] One-to-one sitting has been discontinued Will discharge to rehab after insurance approval Follow up: d/c to SNF when medically stable, cleared by Ortho Ortho Dr. Sequeira PCP Dr. Alexandra upon discharge She will be discharged today Has had a discussion with the family members in detail on 08/06 Total Time Total Time Spent Total Time Spent (In Minutes): 35 minutes Total Time Includes: Examination of the Patient, Discharge Planning, Medication Reconciliation and Communication With Other Providers Discharge Plan Discharge Items Patient Disposition: Transfer [facility] Fac Reason For Visit: ACUTE DISPLACED R FEMORAL NECK FX Discharge Diagnosis: Right hip fracture status post ORIF on 07/31/2019, Alzheimer's disease, UTI- treated Condition on Discharge: Fair Activity: Resume your previous activity Non-emergency contact: Primary Care Provider Call non-emergency contact if: you have any medication questions and your symptoms worsen Follow-up/Referrals: [facility]urs[facility] [Primary Care Provider] - Diet: Regular Addtl Attending Provider Instructions: [facility] DISCHARGE INSTRUCTIONS: HIP FRACTURE SELF CARE INSTRUCTIONS: A. You are to ambulate with a walker or crutches for approximately 6 weeks. B. You are WEIGHT BEARING TOLERATE on your operative lower extremity for at least 6 weeks. C. Wear low heeled shoes with non-slip soles D. Be sure that your floors are free of things that could trip you throw rugs, electrical cords, and small objects. Avoid wet and waxed floors, especially with crutches/walker/cane. E. Try to walk several times a day with rest periods between. F. You may shower 48 hours after surgery and get the incision area wet, but DO NOT soak or submerge incision area in water. (No baths, swimming pools, hot tubs) G. You may have a large, band-aid like dressing over your incision (Aquacel). This will remain on your incision for 7 days, and then can be removed. You CAN shower with this on. If incision is leaking through the dressing, please call the office . H. Do NOT apply soap or any ointment/lotions directly over incision. I. You may use ice as needed to operative site. SPECIAL CARE INSTRUCTIONS: VERY IMPORTANT TO READ AND REVIEW A. You may be at risk for phlebitis or blood clots. a. Wear surgical stockings (CARL hose) for 2 weeks after surgery to improve circulation and reduce swelling. b. Take ASPIRIN 81mg twice daily for 4 weeks or as directed. This is your blood thinner. c. If you are on Coumadin- you will have daily/weekly blood work to monitor your levels. This will be done by either your family physician/stone polisher machine (if you are on Coumadin chronically) versus your orthopedic surgeon. Expect a phone call the day of or the day after your blood work is drawn to adjust your dose accordingly. B. There are a few signs you need to watch for after you are home. Call [facility] at [phone] if you experience any of the following: a. If you have a temperature of 101 degrees or higher. b. Sudden increase in pain in your hip not relieved by rest or pain medication. c. Any fluid or drainage from the incision; redness of the incision. d. Shortness of breath or chest pain. B. Please call [facility] at [phone] if you have any questions or concerns about your operation or recovery. C. Call your physician if: a. Temperature is greater than 101 degrees (F). b. Pain is not relieved by prescribed pain medications. c. Increase drainage or redness from incision. d. Unanswered questions or concerns. D. Pain Medication: a. You will be prescribed pain medication upon discharge that should last till your first post-operative appointment. b. If you experience nausea and/or skin rash, discontinue this medication and contact our office for an alternative medication. c. Caution- narcotic pain medication can cause constipation. FOLLOW UP VISIT: Please call [facility] at [phone] to schedule a follow up appointment, with Dr. Sequeira in 10-14 days from the date of your surgery date. Pending Studies at Discharge: No Stand-Alone Forms: My [facility] [employer] Skilled Items Patient informed of condition?: Yes DNR: No Discharge Level of Care: Skilled Communicable Disease: No Discharge Prognosis: Improving Lines: None Urinary Catheter: No Medications and DC Order Prescriptions: New nystatin 100,000 unit/mL Suspension 10 ml PO QID 7 Days Qty: 280 RF: 0 aspirin [Ecotrin Low Strength] 81 mg Tablet,Delayed Release (Dr/Ec) 81 mg PO BID 30 Days Qty: 60 RF: 0 ergocalciferol (vitamin D2) 50,000 unit Capsule 50,000 unit PO Tu@1200 30 Days Qty: 4 RF: 0 Continued latanoprost 0.005 % Drops 1 drp OPB HS RF: 0 acetaminophen [Tylenol] 325 mg Tablet 325 mg PO Q6H PRN (Reason: fever/pain) RF: 0 trazodone 50 mg Tablet 50 mg PO HS RF: 0 atorvastatin 10 mg Tablet 10 mg PO HS RF: 0 olanzapine [Zyprexa] 2.5 mg Tablet 2.5 mg PO QAM RF: 0 mirtazapine 7.5 mg Tablet 7.5 mg PO HS RF: 0 lorazepam 0.5 mg Tablet 0.5 mg PO Q6H PRN (Reason: Anxiety) RF: 0 magnesium hydroxide [Milk of Magnesia] 400 mg/5 mL Suspension 30 ml PO DAILY PRN (Reason: Constipation) RF: 0 bisacodyl [Dulcolax (bisacodyl)] 10 mg Suppository 10 mg GA DAILY PRN (Reason: Constipation) RF: 0 Enema 19-7 gram/118 mL Enema 118 ml GA DAILY PRN (Reason: Constipation) RF: 0 nabumetone 500 mg Tablet 500 mg PO Q12H PRN (Reason: Pain) RF: 0 olanzapine 2.5 mg Tablet 5 mg PO HS RF: 0 Discharge Orders: Discharge Order (Routine); Ordered 08/07/19 Ordered By: Julio Ramirez Admission Data Admit Date/Time: 07/30/19 15:32 Attending Provider: Julio Ramirez Admit Provider: Leopoldo Rosas Primary Care Provider: [facility],Nursing Other Providers: [facility], ; [facility] ; Nitish Zapata ; Andre Lopez ; Pedro Sequeira ; Jasmin Rosado Other Interventions: Discharge Summary Assessment (RN) Last Done: 08/07/19 12:46 DC Date/Time DO NOT enter until pt leaves facility: 08/07/19 15:00
== END 2019-08-07 15:00 | DRG 470 ==
LOC: ED 12:34 → SUATTDRO 15:32 → 3N 15:32 → 2E 07-31 21:46 → 3N 08-04 16:54

== ENCOUNTER 2020-06-04 12:25 | Inpatient (IN) ==
--- NOTE | 2020-06-04 12:49 | Emergency Department Note ---
Impression & Plan COVID-19, Hypoxemia, Respiratory failure, Pneumonia, Sepsis ED Provider Note NAME: YULI BETANCOURT AGE: 89 SEX: F : 1930 ARRIVES VIA: Ambulance INFORMANT: Patient, ED PROVIDER(S): Fareed Tejeda MD Chief Complaint: Unresponsive HPI: Does present from [facility] due to concern for decreased responsiveness a nd associated recent COVID-19 positive testing. Patient was reportedly a full code. Patient is not able to participate with the exam. The patient apparently was very difficult to arouse and had been hypoxic on room air into the 80s. The patient was placed on nonrebreather and did present to the hospital. 1 L of IV fluids has already been given. She also was hypotensive prior to arrival. ROS: See HPI for pertinent positives and negatives. A total of 10 systems were reviewed and otherwise negative. Past medical history: See below Surgical history: See below Social history: See below Physical Exam: GENERAL: Severe distress, ill in appearance, difficulty to arouse. EYE EXAM: Normal conjunctiva. PERRL, no anisocoria and EOM's grossly intact w/o pain. [OROPHARYNX: Moist mucus membranes. Grossly normal dentition. [No exudate, posterior pharynx is clear, no tonsillar/uvular deviation or swelling. No cervical adenopathy, no submental, submandibular, or sublingual swelling.]] NECK: Supple, no nuchal rigidity, no adenopathy, non-tender. No signs of meningismus. [FROM of the neck with good chin to chest and neck extension. No stridor.] LUNGS: Tachypnea noted with shallow breathing. HEART: Tachycardic and regular, no MRG. ABDOMEN: Abdomen soft, non-tender, normo-active bowel sounds, no masses, no rebound or guarding. BACK: No CVA TTP. SKIN: No rashes and no bruising. Scant redness in the left buttock that crepitus or drainage. : Gant catheter in place. UPPER EXTREMITIES: Upper extremities are grossly normal. LOWER EXTREMITIES: Grossly normal, no edema. NEURO EXAM: Opens eyes to sternal rub and makes unintelligible noises. Differential diagnoses: Reactive airway disease, pneumonia, pneumothorax, COPD, CHF, infections, cardiac ischemia, pulmonary embolism, musculoskeletal, gastrointestinal, as well as other pathologies. Course: Patient was seen and evaluated the bedside. Full history physical exam was performed. EKG: Indication: Altered mental status Sinus tachycardia, rate of 104, wide QRS prolonged QT, right bundle branch block pattern. T wave inversion in V3. Imaging Studies: Radiology results as stated below per my review in the radiologist's int erpretation: XR chest 1V portable CLINICAL HISTORY: SEPSIS COMPARISON STUDY: 08/03/2019 FINDINGS: The heart is normal in size. There are airspace opacities within the right mid to upper lung zone and left lung base. The findings are likely secondary to a multifocal pneumonia. Trace pleural effusions are suspected[ IMPRESSION: 1. Bilateral airspace opacities suspicious for a multifocal pneumonia. Clinical and radiographic follow-up is recommended ACT 112: Negative or not required by law. Electronically signed by: Jordan Marie M.D. 06/04/2020 1:32 PM Dictated: 06/04/201 Transcribed: 06/04/201330 Cardiac monitoring: An order was placed for continuous cardiac monitoring. The monitor shows a rate of 95 with sinus rhythm. MDM: Patient did present in severe respiratory distress and decreased mental status. I did did immediately evaluate the patient and subsequently orders were placed. I did speak with the patient's Jose Betancourt. After further discussion he is agreeable with the patient should be DNR/DNI. He is agreeable to noninvasive measures IV fluids and antibiotics. The patient was ordered dexamethasone and IV fluids. Patient does have mild leukopenia and lymphopenia likely significant with the patient's Covid. Patient does have an elevated BUN/creatinine ratio likely significant for dehydration. Troponin is elevated at 1.7. Chest x-ray did show concern for pneumonia. Procalcitonin is elevated so antibiotics were ordered additionally and this is likely not just related to the coronavirus infection. Urinalysis also showed the possibility of infection. The patient did receive vancomycin and Zosyn. Patient does have an elevated temperature and did receive over acetaminophen IV. The patient seem to have improving respiratory status. The patient's blood pressure also improved. Patient was weaned lower on her oxygen. I did speak with the hospitalist Dr. Lisa MD. The patient was admitted to the medicine service. I did update the patient's that the patient was to be admitted. He is agreeable to plan of care. Critical Care: I have personally spent 120 minutes of critical care time in direct management of this patient. This includes bedside care, interpretation of diagnostic studies, and testing, discussion with consultants, patient, and family members, and other require inpatient management activities. This 120 minutes is in excess of all separately billable procedures. 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 Hyperlipidemia Major neurocognitive disorder due to Alzheimer's disease, probable, with behavioral disturbance Osteopenia Primary open angle glaucoma Surgical History History of bilateral mastectomy History of cataract extraction History of tonsillectomy and adenoidectomy History of total abdominal hysterectomy and bilateral salpingo-oophorectomy Family History Other Colorectal cancer Coronary heart disease Social History Smoking Status: Unknown if ever smoked Hx Alcohol Use: No Hx Substance Use: No Preferred Language: Japanese Communication Ability: Impaired marital status: Current Living Situation: [facility] Current Living Situation Comment: [facility] - new resident as of 07/27/19 - no longer able to care Feels Safe at Home: Yes Assistive Devices: Walker Allergies Allergies Allergy/AdvReac Type Severity Reaction Status Date / Time alendronate sodium Allergy Unknown Verified 06/04/20 14:34 ibuprofen Allergy Unknown Verified 06/04/20 14:34 simvastatin [From Zocor] Allergy Unknown Verified 06/04/20 14:34 pravastatin [From Pravachol] AdvReac Unknown Verified 06/04/20 14:34 rosuvastatin [From Crestor] AdvReac Unknown Verified 06/04/20 14:34 Home Meds Home Medications Medication Instructions Recorded Confirmed Enema 118 ml MA DAILY PRN 07/30/19 06/04/20 bisacodyl [Dulcolax (bisacodyl)] 10 mg MA DAILY PRN 07/30/19 06/04/20 latanoprost 1 drp OPB HS 07/30/19 06/04/20 lorazepam 0.5 mg PO TID PRN 07/30/19 06/04/20 magnesium hydroxide [Milk of 30 ml PO DAILY PRN 07/30/19 06/04/20 Magnesia] trazodone 50 mg PO QAM 07/30/19 06/04/20 acetaminophen [Tylenol Extra 500 mg PO BID PRN 06/04/20 06/04/20 Strength] aspirin 81 mg PO BID 06/04/20 06/04/20 docusate sodium 100 mg PO BID 06/04/20 06/04/20 olanzapine 5 mg PO BID 06/04/20 06/04/20 trazodone 150 mg PO QPM 06/04/20 06/04/20 Results & Data (ED) Vital Signs Vital Signs - 24 hr 06/04/20 12:27 06/04/20 12:55 06/04/20 13:00 Temperature 37.7 C H Temperature Source Rectal Pulse Rate 105 H Pulse Rate [Apical] 92 H 95 H Pulse Rhythm Regular Pulse Rhythm [Apical] Regular Regular Pulse Strength Normal Pulse Strength [Apical] Normal Normal Respiratory Rate 30 H 28 H 28 H Respiratory Effort / Characteristics Spontaneous Accessory Muscle Use Short of Breath Spontaneous Labored Short of Breath Non-Labored Spontaneous Respiratory Depth Retractive Deep Deep Respiratory Pattern Regular Regular Regular Blood Pressure 81/52 L Blood Pressure [Right Arm] 123/42 L 124/47 L Blood Pressure Mean 61 Blood Pressure Mean [Right Arm] 69 72 Blood Pressure Position Sitting Blood Pressure Position [Right Arm] Sitting Sitting Pulse Oximetry 100 100 99 Oxygen Delivery Method Non-rebreather Non-rebreather Non-rebreather Oxygen Flow Rate 10 9 9 Sepsis Recent Fever Within 48 Hours Yes Sepsis New/Unexplained Change in Mental Status Yes Sepsis Action Taken by Nursing Physician Notified 06/04/20 13:55 Temperature Temperature Source Pulse Rate Pulse Rate [Apical] Pulse Rhythm Pulse Rhythm [Apical] Pulse Strength Pulse Strength [Apical] Respiratory Rate Respiratory Effort / Characteristics Respiratory Depth Respiratory Pattern Blood Pressure Blood Pressure [Right Arm] Blood Pressure Mean Blood Pressure Mean [Right Arm] Blood Pressure Position Blood Pressure Position [Right Arm] Pulse Oximetry 100 Oxygen Delivery Method Non-rebreather Oxygen Flow Rate 9 Sepsis Recent Fever Within 48 Hours Sepsis New/Unexplained Change in Mental Status Sepsis Action Taken by [facility] Medications Current Medication List: was personally reviewed by me Laboratory Data Attestation: I reviewed the patient's lab results. Result diagrams: 06/04/20 12:51 10/27/20 12:51 Lab Results 06/04/20 06/04/20 06/04/20 Range/Units 12:45 12:51 12:51 WBC 4.44 L (4.8-10.8) K/uL RBC 3.64 L (4.2-5.4) M/uL Hgb 10.9 L (12.0-16.0) g/dL Hct 33.2 L (37-47) % MCV 91.2 (80-100) fL MCH 29.9 (25-34) pg MCHC 32.8 (32-36) g/dL RDW Std Deviation 50.7 H (36.4-46.3) fL RDW Coeff of Peggy 15.0 H (11.5-14.5) % Plt Count 117 L (130-400) K/uL MPV 11.2 H (7.4-10.4) fL Immature Gran % (Auto) 8.8 % Neut % (Auto) 77.9 % Lymph % (Auto) 9.5 % [place] % (Auto) 3.8 % Eos % (Auto) 0.0 % Baso % (Auto) 0.0 % Neut # (Auto) 3.46 (1.4-6.5) K/uL Lymph # (Auto) 0.42 L (1.2-3.4) K/uL [place] # (Auto) 0.17 (0.11-0.59) K/uL Eos # (Auto) 0.00 (0-0.5) K/uL Baso # (Auto) 0.00 (0-0.2) K/uL Immature Gran # (Auto) 0.39 H (0.00-0.02) K/uL Toxic Vacuolation 1+ PT 11.0 (9.0-12.0) Seconds INR 1.0 (0.9-1.1) APTT 36.0 H (21.0-31.0) Seconds PTT Ratio 1.3 Sodium (136-145) mmol/L Potassium (3.5-5.1) mmol/L Chloride (98-107) mmol/L Carbon Dioxide (21-32) mmol/L Anion Gap (3-11) BUN (7-18) mg/dl Creatinine (0.6-1.2) mg/dl Est Cr Clr Drug Dosing Est GFR ( Amer) Est GFR (Non-Af Amer) BUN/Creatinine Ratio (10-20) Glucose (70-99) mg/dl Lactate (0.4-2.0) mmol/L Calcium (8.5-10.1) mg/dl Magnesium (1.8-2.4) mg/dl Total Bilirubin (0.2-1) mg/dl AST (15-37) U/L ALT (12-78) U/L Alkaline Phosphatase (45-117) U/L Troponin I (0-0.045) ng/ml Total Protein (6.4-8.2) gm/dl Albumin (3.4-5.0) gm/dl Globulin (2.5-4.0) gm/dl Albumin/Globulin Ratio (0.9-2) Procalcitonin (0-0.5) ng/ml Urine Color Dark Yellow Urine Appearance Cloudy A (Clear) Urine pH 5.0 (4.5-7.5) Ur Specific [place] 1.023 (1.000-1.030) Urine Protein 1+ H (Negative) Urine Glucose (UA) Negative (Negative) Urine Ketones Trace H (Negative) Urine Blood 1+ H (Negative) Urine Nitrite Negative (Negative) Urine Bilirubin Negative (Negative) Urine Urobilinogen Negative (Negative) Ur Leukocyte Esterase Trace H (Negative) Urine WBC (Auto) 5-10 H (0-5) /hpf Urine RBC (Auto) 0-4 (0-4) /hpf U Hyaline Cast (Auto) 1-5 (0-5) /lpf U Epithel Cells (Auto) >30 H (0-5) /lpf Urine Bacteria (Auto) 1+ H (Negative) Ur Renal Epithelial Cell Not Reportable Urine Mucus Present A (None Prsent) Urine Yeast Not Reportable 06/04/20 06/04/20 06/04/20 Range/Units 12:51 12:51 12:51 WBC (4.8-10.8) K/uL RBC (4.2-5.4) M/uL Hgb (12.0-16.0) g/dL Hct (37-47) % MCV (80-100) fL MCH (25-34) pg MCHC (32-36) g/dL RDW Std Deviation (36.4-46.3) fL RDW Coeff of Peggy (11.5-14.5) % Plt Count (130-400) K/uL MPV (7.4-10.4) fL Immature Gran % (Auto) % Neut % (Auto) % Lymph % (Auto) % [place] % (Auto) % Eos % (Auto) % Baso % (Auto) % Neut # (Auto) (1.4-6.5) K/uL Lymph # (Auto) (1.2-3.4) K/uL [place] # (Auto) (0.11-0.59) K/uL Eos # (Auto) (0-0.5) K/uL Baso # (Auto) (0-0.2) K/uL Immature Gran # (Auto) (0.00-0.02) K/uL Toxic Vacuolation PT (9.0-12.0) Seconds INR (0.9-1.1) APTT (21.0-31.0) Seconds PTT Ratio Sodium 141 (136-145) mmol/L Potassium 3.1 L (3.5-5.1) mmol/L Chloride 106 (98-107) mmol/L Carbon Dioxide 26 (21-32) mmol/L Anion Gap 8.0 (3-11) BUN 40 H (7-18) mg/dl Creatinine 0.98 (0.6-1.2) mg/dl Est Cr Clr Drug Dosing Not Reportable Est GFR ( Amer) 59.3 Est GFR (Non-Af Amer) 51.1 BUN/Creatinine Ratio 40.4 H (10-20) Glucose 104 H (70-99) mg/dl Lactate 1.7 (0.4-2.0) mmol/L Calcium 9.5 (8.5-10.1) mg/dl Magnesium 1.9 (1.8-2.4) mg/dl Total Bilirubin 0.5 (0.2-1) mg/dl AST 132 H (15-37) U/L ALT 41 (12-78) U/L Alkaline Phosphatase 37 L (45-117) U/L Troponin I 1.760 H* (0-0.045) ng/ml Total Protein 6.5 (6.4-8.2) gm/dl Albumin 2.7 L (3.4-5.0) gm/dl Globulin 3.8 (2.5-4.0) gm/dl Albumin/Globulin Ratio 0.7 L (0.9-2) Procalcitonin 6.96 H (0-0.5) ng/ml Urine Color Urine Appearance (Clear) Urine pH (4.5-7.5) Ur Specific [place] (1.000-1.030) Urine Protein (Negative) Urine Glucose (UA) (Negative) Urine Ketones (Negative) Urine Blood (Negative) Urine Nitrite (Negative) Urine Bilirubin (Negative) Urine Urobilinogen (Negative) Ur Leukocyte Esterase (Negative) Urine WBC (Auto) (0-5) /hpf Urine RBC (Auto) (0-4) /hpf U Hyaline Cast (Auto) (0-5) /lpf U Epithel Cells (Auto) (0-5) /lpf Urine Bacteria (Auto) (Negative) Ur Renal Epithelial Cell Urine Mucus (None Prsent) Urine Yeast Administered Medications Discontinued Medications Dexamethasone (Dexamethasone Sod Inj 10 Mg/Ml Vial) 6 mg IV NOW ONE Stop: 06/04/20 13:47 Last Admin: 06/04/20 14:13 Dose: 6 mg Documented by: [id number] Sodium Chloride (Nss 1000ml) 1,000 mls @ 999 mls/hr IV .[id number] STORMY Stop: 06/04/20 14:00 Last Admin: 06/04/20 13:12 Dose: 999 mls/hr Documented by: [id number] Acetaminophen (Ofirmev) 1,000 mg in 100 mls @ 400 mls/hr IV NOW STA Stop: 06/04/20 14:00 Last Infusion: 06/04/20 14:29 Dose: 0 mls/hr Documented by: [id number] Admin: 06/04/20 14:13 Dose: 400 mls/hr Documented by: [id number] Discharge Plan Visit Data Chief Complaint: Shortness of Breath/Dyspnea ED Provider: Fareed Tejeda Discharge Problem: COVID-19, Hypoxemia, Respiratory failure, Pneumonia, Sepsis Forms Stand Alone Forms: My [facility] ActionFlow Prescriptions Prescriptions: No Action latanoprost 0.005 % Drops 1 drp OPB HS RF: 0 trazodone 50 mg Tablet 50 mg PO QAM RF: 0 lorazepam 0.5 mg Tablet 0.5 mg PO TID PRN (Reason: Anxiety) RF: 0 magnesium hydroxide [Milk of Magnesia] 400 mg/5 mL Suspension 30 ml PO DAILY PRN (Reason: Constipation) RF: 0 bisacodyl [Dulcolax (bisacodyl)] 10 mg Suppository 10 mg MA DAILY PRN (Reason: Constipation) RF: 0 Enema 19-7 gram/118 mL Enema 118 ml MA DAILY PRN (Reason: Constipation) RF: 0 trazodone 50 mg tablet 150 mg PO QPM RF: 0 olanzapine 10 mg tablet 5 mg PO BID RF: 0 aspirin 81 mg Tablet,Delayed Release (Dr/Ec) 81 mg PO BID RF: 0 acetaminophen [Tylenol Extra Strength] 500 mg Tablet 500 mg PO BID PRN (Reason: Pain) RF: 0 docusate sodium 100 mg Capsule 100 mg PO BID RF: 0 Discharge Problem: Respiratory failure Qualifiers: Chronicity: acute Respiratory failure complication: hypoxia Qualified Code(s): J96.01 - Acute respiratory failure with hypoxia Pneumonia Qualifiers: Pneumonia type: due to unspecified organism Laterality: bilateral Lung location: unspecified part of lung Qualified Code(s): J18.9 - Pneumonia, unspecified organism Sepsis Qualifiers: Sepsis type: sepsis due to unspecified organism Sepsis acute organ dysfunction status: with acute organ dysfunction Severe sepsis acute organ dysfunction type: acute respiratory failure Acute respiratory failure type: with hypoxia Severe sepsis shock status: unspecified Qualified Code(s): A41.9 - Sepsis, unspecified organism
[2020-06-04] MEDS ORDERED: SODIUM CHLORIDE 0.9% 1000ML 1,000 ML IV SCH (13:00)
[2020-06-04 13:10] LABS: Hematocrit (blood only) 33.2 % (37-47); Hemoglobin 10.9 g/dL (12.0-16.0); Mean Corpuscular Hemoglobin 29.9 pg (25-34); Mean Corpuscular Hgb Conc 32.8 g/dL (32-36); Mean Corpuscular Volume 91.2 fL (80-100); Mean Platelet Volume 11.2 fL (7.4-10.4); Platelet Count 117 K/uL (130-400); RDW Standard Deviation 50.7 fL (36.4-46.3); Red Blood Count 3.64 M/uL (4.2-5.4); White Blood Count 4.44 K/uL (4.8-10.8)
[2020-06-04 13:24] LABS: Partial Thromboplastin Ratio 1.3
[2020-06-04 13:30] LABS: Alanine Aminotransferase 41 U/L (12-78); Albumin Level 2.7 gm/dl (3.4-5.0); Aspartate Aminotransferase 132 U/L (15-37); BUN Creatinine Ratio 40.4 (10-20); Blood Urea Nitrogen 40 mg/dl (7-18); Calcium 9.5 mg/dl (8.5-10.1); Carbon Dioxide 26 mmol/L (21-32); Chloride 106 mmol/L (98-107); Est GFR (African American) 59.3; Est GFR (Non-African American) 51.1; Glucose 104 mg/dl (70-99); Magnesium 1.9 mg/dl (1.8-2.4); Potassium 3.1 mmol/L (3.5-5.1); Sodium 141 mmol/L (136-145)
--- NOTE | 2020-06-04 13:33 | XRay Report ---
XR chest 1V portable CLINICAL HISTORY: SEPSIS COMPARISON STUDY: 08/03/2019 FINDINGS: The heart is normal in size. There are airspace opacities within the right mid to upper mary g zone and left lung base. The findings are likely secondary to a multifocal pneumonia. Trace pleural effusions are suspected[ IMPRESSION: 1. Bilateral airspace opacities suspicious for a multifocal pneumonia. Clinical and radiographic foll ow-up is recommended ACT 112: Negative or not required by law. Electronically signed by: Jordan Marie M.D. 06/04/2020 1:32 PM
[2020-06-04 13:34] LABS: Immature Granulocytes # (auto) 0.39 K/uL (0.00-0.02); Immature Granulocytes % (auto) 8.8 %; Lymphocytes # (auto) 0.42 K/uL (1.2-3.4); Lymphocytes % (auto) 9.5 %; Monocytes # (auto) 0.17 K/uL (0.11-0.59); Monocytes % (auto) 3.8 %; Neutrophils # (auto) 3.46 K/uL (1.4-6.5); Neutrophils % (auto) 77.9 %; Toxic Vacuolation 1+
[2020-06-04 13:40] LABS: Albumin Globulin Ratio 0.7 (0.9-2); Alkaline Phosphatase 37 U/L (45-117); Bilirubin,Total 0.5 mg/dl (0.2-1); Globulin 3.8 gm/dl (2.5-4.0); Total Protein 6.5 gm/dl (6.4-8.2)
[2020-06-04] MEDS ORDERED: DEXAMETHASONE SOD INJ 10 MG/ML VIAL IV ONE (13:46)
[2020-06-04] MEDS ORDERED: ACETAMINOPHEN 1,000 MG/100 ML VIAL IV STA (13:46)
[2020-06-04 13:57] LABS: Appearance Urine Cloudy (Clear); Blood Urine 1+ (Negative); Color Urine Dark Yellow; Epithelial Cell Urine Auto >30 /lpf (0-5); Glucose Urine UA Negative (Negative); Ketones Urine Trace (Negative); Leukocyte Esterase Urine Trace (Negative); Nitrite Urine Negative (Negative); Protein Urine 1+ (Negative); RBC Urine Automated 0-4 /hpf (0-4); Specific Gravity Urine 1.023 (1.000-1.030); Urobilinogen Urine Negative (Negative)
[2020-06-04 14:12] LABS: Bilirubin Urine Negative (Negative); Ictotest Urine Negative (Negative)
[2020-06-04 14:17] LABS: Mucus Urine Present (None Prsent)
[2020-06-04 14:18] LABS: Bacteria Urine Automated 1+ (Negative)
--- NOTE | 2020-06-04 14:22 | History & Physical Report ---
Date of Service June 04, 2020 Assessment & Plan (1) Acute respiratory failure with hypoxia: Aim O2 sats > 90%. Secondary to COVID-19 + possible bacterial multifocal PNA. (2) Altered mental state: Currently unsafe to eat or drink. NPO except olanzapine to avoid delirium. Will hold trazodone due to obtunded state. (3) COVID-19: Positive test on 05/29 @ [facility]. Dexamethasone 6mg IV daily for 10 days. Will discuss Remdesivir with pulmonology (4) Sepsis: Lactate WNL 1L NSS bolus given in ER KCL 10 meq x2 now (5) Multifocal pneumonia: Follow-up blood cultures MRSA nares swab Start vancomycin and cefepime Follow up blood cultures (6) Elevated troponin: Suspect demand-ischemia in setting of sepsis and acute respiratory failure above. If uptrending will consider ACS but less likely at current time. (7) Dementia: High risk of delirium and combative behavior per prior notes. Will continue olanzapine if patient able to take this with haloperidol IM PRN if at risk to self or others. (8) Combative behavior: Continue Olanzapine 5mg BID as above Haloperidol 2.5mg IM Q4H PRN (9) DVT prophylaxis: Heparin 7500 SQ BID (increased dosing due to COVID-19 diagnosis) Admission and Anticipated Discharge Date Admission Date: 06/04/2020 History of Present Illness Chief Complaint: Shortness of breath, altered mental state Primary Care Provider: [facility] Buffy Betancourt is an 89 year old female with dementia who presents from [facility] to the ER with altered mental state. Unable to get any history from the patient. Discussed with nurse at [facility] who reports the patient was diagnosed with COVID-19 on May 29 when she was asymptomatic at this time. However she has been getting increasingly less mobile since diagnosis and yesterday was more lethargic. Today she was alerted by nursing assistants that the patient was found appearing dusky, neck extended with O2 sats 83% on room air. Unable to get her O2 sats greater than 94% with nasal cannula and therefore started on a non-rebreather. She reportedly has a POLST form for full code however this could not be found at the present time. Her was called and told the nursing staff at [facility] that he wanted everything done therefore was transferred to the ER for further management. Baseline - prior to COVID-19 diagnosis could use walker with assistance. Mostly uses a wheelchair and uses her feet to pedal around. Confused and not orientated x3 chronically with occasional deliruim. Able to answer simple questions. Did not take her usual medications this morning. I discussed her code status with her and wishes to make her not for resuscitation or intubation at the current time. Gives broad authorization to make decision we feel are in her best interest and I explained these decisions are individualized. In the ER CXR concerning for multifocal pneumonia, procalcitonin elevated therefore recommended to start Vancomycin and cefepime to cover for bacterial PNA. Allergies Allergy/AdvReac Type Severity Reaction Status Date / Time alendronate sodium Allergy Unknown Verified 06/04/20 14:34 ibuprofen Allergy Unknown Verified 06/04/20 14:34 simvastatin [From Zocor] Allergy Unknown Verified 06/04/20 14:34 pravastatin [From Pravachol] AdvReac Unknown Verified 06/04/20 14:34 rosuvastatin [From Crestor] AdvReac Unknown Verified 06/04/20 14:34 Home Medications Home Medications Medication Instructions Recorded Confirmed Type Enema 118 ml OK DAILY PRN 07/30/19 06/04/20 History bisacodyl [Dulcolax (bisacodyl)] 10 mg OK DAILY PRN 07/30/19 06/04/20 History latanoprost 1 drp OPB HS 07/30/19 06/04/20 History lorazepam 0.5 mg PO TID PRN 07/30/19 06/04/20 History magnesium hydroxide [Milk of 30 ml PO DAILY PRN 07/30/19 06/04/20 History Magnesia] trazodone 50 mg PO QAM 07/30/19 06/04/20 History acetaminophen [Tylenol Extra 500 mg PO BID PRN 06/04/20 06/04/20 History Strength] aspirin 81 mg PO BID 06/04/20 06/04/20 History docusate sodium 100 mg PO BID 06/04/20 06/04/20 History olanzapine 5 mg PO BID 06/04/20 06/04/20 History trazodone 150 mg PO QPM 06/04/20 06/04/20 History Past Med/Surg History Medical History (Updated 06/05/20 @ 06:54 by Imer Gonzalez MD) Anxiety 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 Hyperlipidemia Major neurocognitive disorder due to Alzheimer's disease, probable, with behavioral disturbance Osteopenia Primary open angle glaucoma Surgical History History of bilateral mastectomy History of cataract extraction History of tonsillectomy and adenoidectomy History of total abdominal hysterectomy and bilateral salpingo-oophorectomy Family History Other Colorectal cancer Coronary heart disease Social History Smoking Status: Unknown if ever smoked Second Hand Exposure: No; Hx Alcohol Use: No (per report from [facility]) Hx Substance Use: No (Per [facility] report) Preferred Language: Kyrgyz Communication Ability: Unable Volunteer Coordinator Required: No Beliefs That Will Affect Care: None marital status: Current Living Situation: [facility] Current Living Situation Comment: [facility] - new resident as of 07/27/19 - no longer able to care Other Information That Helps Us Care for You: No Feels Safe at Home: Declines to Answer Assistive Devices: Oxygen - Continuous Review of Systems Review of Systems: Unobtainable due to cognitive status Physical Exam Constitutional: + acute distress (respiratory), + ill appearing, + altered mental status, + disheveled and + malnourished; + not well nourished Eyes: + anicteric sclerae, + abnormal pupil size (b/l equally dilated, unable to assess pupil reflex due to non-compliance) and + nystagmus ENMT: Mouth: + dry oral mucous membranes Respiratory: + respiratory distress, + labored breathing, + retractions and + uses accessory muscles; no cough, expiratory phase not prolonged, no audible wheezes and no stridor Auscultation: + diminished lung sounds (throughout b/l); no rales, no rhonchi and no wheezes Cardiovascular: Rate/Rhythm: regular rhythm and + tachycardic Heart Sounds: no murmur Vessels: no JVD Extremities: normal capillary refill; no calf tenderness and no pedal edema Gastrointestinal (Abdomen): normal bowel sounds, soft, nontender, no hepatosplenomegaly Skin: no rashes, warm and dry Neurologic: + not awake (GCS 7, E1V2M4, gag reflex present) Psychiatric: Orientation: + not alert Results & Data Results & Data ([facility]) Vital Signs (Past 12 Hours) Vital Signs Temp Pulse Pulse Resp BP BP Pulse Ox 06/04/20 13:55 100 06/04/20 13:00 95 H 28 H 124/47 L 99 06/04/20 12:55 92 H 28 H 123/42 L 100 06/04/20 12:27 37.7 C H 105 H 30 H 81/52 L 100 Diagnostic Findings XR chest 1V portable IMPRESSION: 1. Bilateral airspace opacities suspicious for a multifocal pneumonia. Clinical and radiographic follow-up is recommended ECG Indication: SOB/dyspnea Rate (beats per minute): 104 Rhythm: sinus tachycardia Findings: + PAC and + RBBB Comparison ECG Date: from (August 02, 2019) Change: no significant change Code Status & VTE Plan Code Status DNR/DNI as discussed with the patient's . No POLST form seen to the contrary although mentioned on senior living notes VTE Prophylaxis Plan VTE Prophylaxis will be ordered: Yes PG Care Time/CCT Total # of Minutes Spent Total Time Spent with Patient: Total time spent is greater than 50% in coordination of care (as documented) at patient's floor/unit and/or counseling patient: Coding Level of Care Code 78968 Initial Inpt Care Lvl 3 Diagnoses Acute respiratory failure with hypoxia J96.01 Altered mental state R41.82 COVID-19 U07.1 Sepsis A41.9; R65.20; J96.01 Acute respiratory failure type: with hypoxia Sepsis acute organ dysfunction status: with acute organ dysfunction Sepsis type: sepsis due to unspecified organism Severe sepsis acute organ dysfunction type: acute respiratory failure Severe sepsis shock status: unspecified Multifocal pneumonia J18.9 Elevated troponin R77.8 Dementia F03.90 Combative behavior R46.89 DVT prophylaxis Z29.9 (1) Sepsis Acute respiratory failure type: with hypoxia Sepsis acute organ dysfunction status: with acute organ dysfunction Sepsis type: sepsis due to unspecified organism Severe sepsis acute organ dysfunction type: acute respiratory failure Severe sepsis shock status: unspecified Qualified Code(s): A41.9 - Sepsis, unspecified organism; R65.20 - Severe sepsis without septic shock; J96.01 - Acute respiratory failure with hypoxia
[2020-06-04] MEDS ORDERED: PIPERACILL/TAZOBAC CONSULT ACTIVE PRN (14:35)
[2020-06-04] MEDS ORDERED: VANCOMYCIN CONSULT ACTIVE PRN (14:35)
[2020-06-04] MEDS ORDERED: PIPERACILLIN/TAZOBACTAM 3.375 GM in DEXTROSE 5% 100 ML/100 ML BAG IV STA (14:35)
[2020-06-04] MEDS ORDERED: VANCOMYCIN HCL 1,000 MG in SODIUM CHLORIDE 0.9% 500 ML IV ONE (14:35)
[2020-06-04] MEDS ORDERED: CEFEPIME CONSULT ACTIVE PRN (15:14)
[2020-06-04] MEDS ORDERED: CEFEPIME 20 ML IV STA (15:17)
[2020-06-04] MEDS ORDERED: LORazepam 0.5 MG TAB PO PRN (17:16)
[2020-06-04] MEDS ORDERED: ACETAMINOPHEN 1,000 MG/100 ML VIAL IV PRN (17:16)
[2020-06-04] MEDS ORDERED: ACETAMINOPHEN 65 ML IV PRN (17:44)
[2020-06-04] MEDS: POTASSIUM CHLORIDE / WTR 10 MEQ/100 ML PLCT IV SCH ×2 (18:53→21:17)
[2020-06-04] MEDS: HEPARIN SOD 5,000 UNIT/0.5 ML VIAL SQ SCH (20:18)
[2020-06-04] MEDS ORDERED: ENOXAPARIN INJ 40 MG/0.4 ML SYR SQ SCH (21:00)
[2020-06-04] MEDS: OLANZapine 5 MG TABLET PO SCH (21:17)
[2020-06-04] MEDS ORDERED: REMDESIVIR 200 mg: Day 1 IV ONE (22:00)
[2020-06-04] MEDS: NSS 30mL Flush, Days 1-5 IV SCH (23:32)
[2020-06-05] MEDS: HALOPERIDOL LACTATE 5 MG/ML 1 ML VIAL IM PRN (00:01)
[2020-06-05] MEDS ORDERED: CEFEPIME 2,000 MG in SYRINGE 0 ML IV SCH (04:00)
--- NOTE | 2020-06-05 06:15 | Electrocardiogram Report ---
Test Reason : Blood Pressure : / mmHG Vent. Rate : 104 BPM Atrial Rate : 104 BPM P-R Int : 176 ms QRS Dur : 126 ms QT Int : 366 ms P-R-T Axes : 075 093 034 degrees QTc Int : 481 ms Poor data quality, interpretation may be adversely affected Sinus tachycardia with Premature atrial complexes Right bundle branch block Abnormal ECG When compared with ECG of 02-AUG-2019 10:28, No significant change Confirmed by Abel Willis ([id number]) on 06/05/2020 6:15:18 AM Referred By: REFERRED SELF Confirmed By:Abel Willis
[2020-06-05 06:39] LABS: D Dimer 3520 ug/L FEU (0-500)
[2020-06-05 06:58] LABS: Hemoglobin 12.5 g/dL (12.0-16.0); Mean Corpuscular Hemoglobin 29.8 pg (25-34); Mean Corpuscular Hgb Conc 32.1 g/dL (32-36); Mean Corpuscular Volume 92.9 fL (80-100); Mean Platelet Volume 11.6 fL (7.4-10.4); Platelet Count 201 K/uL (130-400); RDW Coefficient of Variation 15.1 % (11.5-14.5); RDW Standard Deviation 51.7 fL (36.4-46.3); White Blood Count 6.65 K/uL (4.8-10.8)
[2020-06-05 06:59] LABS: Albumin Level 2.8 gm/dl (3.4-5.0); BUN Creatinine Ratio 54.5 (10-20); Est GFR (African American) 81.9; Est GFR (Non-African American) 70.7
[2020-06-05] MEDS ORDERED: LACTATED RINGER'S 1,000 ML IV SCH (07:00)
[2020-06-05 07:04] LABS: Basophils # (auto) 0.01 K/uL (0-0.2); Basophils % (auto) 0.2 %; Immature Granulocytes # (auto) 0.12 K/uL (0.00-0.02); Immature Granulocytes % (auto) 1.8 %; Lymphocytes # (auto) 0.45 K/uL (1.2-3.4); Lymphocytes % (auto) 6.8 %; Monocytes # (auto) 0.21 K/uL (0.11-0.59); Monocytes % (auto) 3.2 %; Neutrophils # (auto) 5.86 K/uL (1.4-6.5)
[2020-06-05 07:05] LABS: Dohle Bodies 1+; Echinocytes 1+; Giant Platelets 1+
[2020-06-05 07:08] LABS: Albumin Globulin Ratio 0.6 (0.9-2); Bilirubin,Total 0.7 mg/dl (0.2-1); C Reactive Protein 26.4 mg/dl (0-0.29); Ferritin 589.9 ng/ml (8-388); Globulin 4.4 gm/dl (2.5-4.0); Total Protein 7.2 gm/dl (6.4-8.2); Troponin I 0.815 ng/ml (0-0.045)
[2020-06-05] MEDS ORDERED: DEXAMETHASONE SOD PHOSPHATE 6 MG in SYRINGE 0 ML IV SCH (09:00)
[2020-06-05] MEDS ORDERED: DEXAMETHASONE SOD INJ 10 MG/ML VIAL IV SCH (09:00)
[2020-06-05] MEDS: HEPARIN SOD 5,000 UNIT/0.5 ML VIAL SQ SCH ×2 (10:51→22:04)
[2020-06-05] MEDS: OLANZapine 5 MG TABLET PO SCH (10:52)
[2020-06-05] MEDS ORDERED: MoRPHine SULFATE 2 MG/ML CARP IV STA (11:08)
[2020-06-05] MEDS ORDERED: LORazepam 0.5 MG/1 ML VIAL IV STA (11:08)
--- NOTE | 2020-06-05 11:26 | Hospitalist Progress Note ---
Date of Service June 05, 2020 Assessment & Plan (1) Acute respiratory failure with hypoxia: Aim O2 sats > 90%. Secondary to COVID-19 + possible bacterial multifocal PNA. respiratory distress today, pulling off oxygen will try to sedate patient to allow her to wear oxygen updated , he agrees that he does not want her uncomfortable, he is okay with sedating her he understands grave prognosis given her dementia no escalation of care, he confirms she is a DNI (2) Altered mental state: Currently unsafe to eat or drink likely delirium on top of dementia, typically on olanzapine give Ativan 0.5mg and Haldol 2mg IM to try to sedate patient, make her more compliant (3) COVID-19: Positive test on 05/29 @ [facility]. Dexamethasone 6mg IV daily for 10 days. no role for remdesivir as patient is not even compliant with oxygen gradually moving towards comfort measures only, does not want her to be in distress (4) Sepsis: Lactate WNL 1L NSS bolus given in ER KCL 10 meq x2 now continue fluids as long as she is not drinking and keeps IV (5) Multifocal pneumonia: Follow-up blood cultures MRSA nares swab is NEGATIVE, STOP vancomycin continue Cefepime for now but likely stop if we move to comfort measures only Follow up blood cultures (6) Elevated troponin: Suspect demand-ischemia, no further work up planned (7) Dementia: High risk of delirium and combative behavior per prior notes. haldol and Ativan IV today to sedate, she is combative at this time (8) Combative behavior: Haldol 2mg IV and Ativan 0.5mg IV now, morphine now for pain/respiratory distress (9) DVT prophylaxis: Heparin 7500 SQ BID (increased dosing due to COVID-19 diagnosis) Admission and Anticipated Discharge Date Admission Date: June 04, 2020 Subjective patient very agitated and uncomfortable will not wear her oxymask, I attempted to place it back on and she ripped it off her face, started screaming, pinching my hand saturations in the 80's on room air HR in the 120's, RR in the 30's, clearly in some distress called her , he agrees with making patient comfortable, understands her prognosis is grave, will not pull through spoke with RN, will give Haldol, Ativan and morphine to try to calm her down and make her comfortable no further escalation of care, no further lab work Review of Systems Review of Systems: Unobtainable due to cognitive status Physical Exam Constitutional: + acute distress, + ill appearing, + thin, + in distress and + combative Neck: trachea midline, no thyromegaly Respiratory: + respiratory distress, + labored breathing and + tachypneic Auscultation: no crackles, no rales and no wheezes Cardiovascular: Rate/Rhythm: regular rhythm and + tachycardic Heart Sounds: normal S1 and normal S2; no murmur Extremities: normal capillary refill; no edema Gastrointestinal (Abdomen): normal bowel sounds, soft, nontender, no hepatosplenomegaly Musculoskeletal: no cyanosis or clubbing, extremities motor strength 5/5 Neurologic: moves all extremities and + obtunded; no focal motor deficits Psychiatric: Orientation: + not alert and + not oriented x 3 Results & Data Results & Data ([facility]) Vital Signs (Past 12 Hours) Vital Signs Temp Pulse Resp BP Pulse Ox 06/05/20 09:00 36.9 C 106 H 26 H 143/105 H 06/05/20 04:00 36.9 C 122 H 32 H 162/76 H 97 06/05/20 01:00 36.6 C 104 H 28 H 117/65 94 Laboratory Results Laboratory Results - last 24 hr 06/04/20 06/04/20 06/04/20 12:45 12:51 12:51 WBC 4.44 L RBC 3.64 L Hgb 10.9 L Hct 33.2 L MCV 91.2 MCH 29.9 MCHC 32.8 RDW Std Deviation 50.7 H RDW Coeff of Peggy 15.0 H Plt Count 117 L MPV 11.2 H Immature Gran % (Auto) 8.8 Neut % (Auto) 77.9 Lymph % (Auto) 9.5 [place] % (Auto) 3.8 Eos % (Auto) 0.0 Baso % (Auto) 0.0 Neut # (Auto) 3.46 Lymph # (Auto) 0.42 L [place] # (Auto) 0.17 Eos # (Auto) 0.00 Baso # (Auto) 0.00 Immature Gran # (Auto) 0.39 H Toxic Vacuolation 1+ Dohle Bodies Giant Platelets Echinocytes PT 11.0 INR 1.0 APTT 36.0 H PTT Ratio 1.3 D-Dimer Sodium Potassium Chloride Carbon Dioxide Anion Gap BUN Creatinine Est Cr Clr Drug Dosing Est GFR ( Amer) Est GFR (Non-Af Amer) BUN/Creatinine Ratio Glucose Lactate Calcium Magnesium Ferritin Total Bilirubin AST ALT Alkaline Phosphatase Lactate Dehydrogenase Troponin I C-Reactive Protein Total Protein Albumin Globulin Albumin/Globulin Ratio Procalcitonin Urine Color Dark Yellow Urine Appearance Cloudy A Urine pH 5.0 Ur Specific [place] 1.023 Urine Protein 1+ H Urine Glucose (UA) Negative Urine Ketones Trace H Urine Blood 1+ H Urine Nitrite Negative Urine Bilirubin Negative Urine Urobilinogen Negative Ur Leukocyte Esterase Trace H Urine WBC (Auto) 5-10 H Urine RBC (Auto) 0-4 U Hyaline Cast (Auto) 1-5 U Epithel Cells (Auto) >30 H Urine Bacteria (Auto) 1+ H Ur Renal Epithelial Cell Not Reportable Urine Mucus Present A Urine Yeast Not Reportable Nasal Screen MRSA (PCR) Random Vancomycin 06/04/20 06/04/20 06/04/20 12:51 12:51 12:51 WBC RBC Hgb Hct MCV MCH MCHC RDW Std Deviation RDW Coeff of Peggy Plt Count MPV Immature Gran % (Auto) Neut % (Auto) Lymph % (Auto) [place] % (Auto) Eos % (Auto) Baso % (Auto) Neut # (Auto) Lymph # (Auto) [place] # (Auto) Eos # (Auto) Baso # (Auto) Immature Gran # (Auto) Toxic Vacuolation Dohle Bodies Giant Platelets Echinocytes PT INR APTT PTT Ratio D-Dimer Sodium 141 Potassium 3.1 L Chloride 106 Carbon Dioxide 26 Anion Gap 8.0 BUN 40 H Creatinine 0.98 Est Cr Clr Drug Dosing Not Reportable Est GFR ( Amer) 59.3 Est GFR (Non-Af Amer) 51.1 BUN/Creatinine Ratio 40.4 H Glucose 104 H Lactate 1.7 Calcium 9.5 Magnesium 1.9 Ferritin Total Bilirubin 0.5 AST 132 H ALT 41 Alkaline Phosphatase 37 L Lactate Dehydrogenase Troponin I 1.760 H* C-Reactive Protein Total Protein 6.5 Albumin 2.7 L Globulin 3.8 Albumin/Globulin Ratio 0.7 L Procalcitonin 6.96 H Urine Color Urine Appearance Urine pH Ur Specific [place] Urine Protein Urine Glucose (UA) Urine Ketones Urine Blood Urine Nitrite Urine Bilirubin Urine Urobilinogen Ur Leukocyte Esterase Urine WBC (Auto) Urine RBC (Auto) U Hyaline Cast (Auto) U Epithel Cells (Auto) Urine Bacteria (Auto) Ur Renal Epithelial Cell Urine Mucus Urine Yeast Nasal Screen MRSA (PCR) Random Vancomycin 06/04/20 06/04/20 06/05/20 22:56 23:00 05:59 WBC RBC Hgb Hct MCV MCH MCHC RDW Std Deviation RDW Coeff of Peggy Plt Count MPV Immature Gran % (Auto) Neut % (Auto) Lymph % (Auto) [place] % (Auto) Eos % (Auto) Baso % (Auto) Neut # (Auto) Lymph # (Auto) [place] # (Auto) Eos # (Auto) Baso # (Auto) Immature Gran # (Auto) Toxic Vacuolation Dohle Bodies Giant Platelets Echinocytes PT INR APTT PTT Ratio D-Dimer Sodium 144 Potassium 4.0 D Chloride 112 H Carbon Dioxide 24 Anion Gap 8.0 BUN 41 H Creatinine 0.75 Est Cr Clr Drug Dosing 38.0 Est GFR ( Amer) 81.9 Est GFR (Non-Af Amer) 70.7 BUN/Creatinine Ratio 54.5 H Glucose 91 Lactate Calcium 10.0 Magnesium Ferritin 589.9 H Total Bilirubin 0.7 AST 165 H ALT 58 Alkaline Phosphatase 41 L Lactate Dehydrogenase Troponin I 0.818 H* 0.815 H* C-Reactive Protein 26.40 H Total Protein 7.2 Albumin 2.8 L Globulin 4.4 H Albumin/Globulin Ratio 0.6 L Procalcitonin Urine Color Urine Appearance Urine pH Ur Specific [place] Urine Protein Urine Glucose (UA) Urine Ketones Urine Blood Urine Nitrite Urine Bilirubin Urine Urobilinogen Ur Leukocyte Esterase Urine WBC (Auto) Urine RBC (Auto) U Hyaline Cast (Auto) U Epithel Cells (Auto) Urine Bacteria (Auto) Ur Renal Epithelial Cell Urine Mucus Urine Yeast Nasal Screen MRSA (PCR) Negative Random Vancomycin 06/05/20 06/05/20 06/05/20 05:59 05:59 05:59 WBC 6.65 RBC 4.20 Hgb 12.5 Hct 39.0 MCV 92.9 MCH 29.8 MCHC 32.1 RDW Std Deviation 51.7 H RDW Coeff of Peggy 15.1 H Plt Count 201 D MPV 11.6 H Immature Gran % (Auto) 1.8 Neut % (Auto) 88.0 Lymph % (Auto) 6.8 [place] % (Auto) 3.2 Eos % (Auto) 0.0 Baso % (Auto) 0.2 Neut # (Auto) 5.86 Lymph # (Auto) 0.45 L [place] # (Auto) 0.21 Eos # (Auto) 0.00 Baso # (Auto) 0.01 Immature Gran # (Auto) 0.12 H Toxic Vacuolation Dohle Bodies 1+ Giant Platelets 1+ Echinocytes 1+ PT INR APTT PTT Ratio D-Dimer 3520 H* Sodium Potassium Chloride Carbon Dioxide Anion Gap BUN Creatinine Est Cr Clr Drug Dosing Est GFR ( Amer) Est GFR (Non-Af Amer) BUN/Creatinine Ratio Glucose Lactate Calcium Magnesium Ferritin Total Bilirubin AST ALT Alkaline Phosphatase Lactate Dehydrogenase Troponin I C-Reactive Protein Total Protein Albumin Globulin Albumin/Globulin Ratio Procalcitonin Urine Color Urine Appearance Urine pH Ur Specific [place] Urine Protein Urine Glucose (UA) Urine Ketones Urine Blood Urine Nitrite Urine Bilirubin Urine Urobilinogen Ur Leukocyte Esterase Urine WBC (Auto) Urine RBC (Auto) U Hyaline Cast (Auto) U Epithel Cells (Auto) Urine Bacteria (Auto) Ur Renal Epithelial Cell Urine Mucus Urine Yeast Nasal Screen MRSA (PCR) Random Vancomycin 8.2 06/05/20 05:59 WBC RBC Hgb Hct MCV MCH MCHC RDW Std Deviation RDW Coeff of Peggy Plt Count MPV Immature Gran % (Auto) Neut % (Auto) Lymph % (Auto) [place] % (Auto) Eos % (Auto) Baso % (Auto) Neut # (Auto) Lymph # (Auto) [place] # (Auto) Eos # (Auto) Baso # (Auto) Immature Gran # (Auto) Toxic Vacuolation Dohle Bodies Giant Platelets Echinocytes PT INR APTT PTT Ratio D-Dimer Sodium Potassium Chloride Carbon Dioxide Anion Gap BUN Creatinine Est Cr Clr Drug Dosing Est GFR ( Amer) Est GFR (Non-Af Amer) BUN/Creatinine Ratio Glucose Lactate Calcium Magnesium Ferritin Total Bilirubin AST ALT Alkaline Phosphatase Lactate Dehydrogenase 565 H Troponin I C-Reactive Protein Total Protein Albumin Globulin Albumin/Globulin Ratio Procalcitonin Urine Color Urine Appearance Urine pH Ur Specific [place] Urine Protein Urine Glucose (UA) Urine Ketones Urine Blood Urine Nitrite Urine Bilirubin Urine Urobilinogen Ur Leukocyte Esterase Urine WBC (Auto) Urine RBC (Auto) U Hyaline Cast (Auto) U Epithel Cells (Auto) Urine Bacteria (Auto) Ur Renal Epithelial Cell Urine Mucus Urine Yeast Nasal Screen MRSA (PCR) Random Vancomycin Medications Administered Current Inpatient Medications Haloperidol Decanoate (Haloperidol Decanoate Inj 50 Mg/Ml Vial) 2 mg IM ONE ONE Stop: 06/05/20 11:09 Haloperidol Lactate (Haloperidol Lactate 5 Mg/Ml 1 Ml Vial) 2.5 mg IM Q4H PRN PRN Reason: Delirium Stop: 07/04/20 17:15 Last Admin: 06/05/20 00:01 Dose: 2.5 mg Documented by: Heparin Sodium (Porcine) (Heparin Sod 5,000 Unit/0.5 Ml Vial) 7,500 units SQ Q12H STORMY Stop: 07/04/20 20:59 Last Admin: 06/05/20 10:51 Dose: 7,500 units Documented by: Cefepime HCl 2,000 mg/ Syringe 20 mls @ 5 mls/min IV Q12H STORMY; Protocol Stop: 06/12/20 03:59 Last Admin: 06/05/20 04:57 Dose: 5 mls/min Documented by: Dexamethasone Sodium Phosphate (6 mg/ Syringe) 1.5 mls @ 1 mls/min IV DAILY STORMY Stop: 07/05/20 08:59 Acetaminophen (Ofirmev) 65 mls @ 260 mls/hr IV Q8H PRN; Protocol PRN Reason: PAIN OR FEVER Stop: 06/07/20 17:43 Remdesivir 100 mg/ Sodium (Chloride) 250 mls @ 250 mls/hr IV Q24H STORMY; Protocol Stop: 06/08/20 22:59 Lactated Ringer's (Lr) 1,000 mls @ 80 mls/hr IV .[id number] STORMY Stop: 07/05/20 06:59 Lorazepam (Lorazepam 0.5 Mg Tab) 0.5 mg PO TID PRN PRN Reason: Anxiety Stop: 07/04/20 17:15 Last Admin: 06/05/20 09:09 Dose: 0.5 mg Documented by: Miscellaneous Information (Cefepime Consult Active) 1 ea N/A UD PRN PRN Reason: Consult Stop: 07/04/20 15:13 Olanzapine (Olanzapine 5 Mg Tablet) 5 mg PO BID STORMY Stop: 07/04/20 20:59 Last Admin: 06/05/20 10:52 Dose: Not Given Documented by: Sodium Chloride (Nss 30ml Flush, Days 1-5) 30 ml IV Q24H STORMY Stop: 06/08/20 22:01 Last Admin: 06/04/20 23:32 Dose: 30 ml Documented by: PG Care Time/CCT Total # of Minutes Spent Total Time Spent with Patient: Total time spent is greater than 50% in coordination of care (as documented) at patient's floor/unit and/or counseling patient: Coding Level of Care Code 69528 Subseq Hosp Care Lvl 2 Diagnoses Acute respiratory failure with hypoxia J96.01 Altered mental state R41.82 COVID-19 U07.1 Sepsis A41.9; R65.20; J96.01 Acute respiratory failure type: with hypoxia Sepsis acute organ dysfunction status: with acute organ dysfunction Sepsis type: sepsis due to unspecified organism Severe sepsis acute organ dysfunction type: acute respiratory failure Severe sepsis shock status: unspecified Multifocal pneumonia J18.9 Elevated troponin R77.8 Dementia F03.90 Combative behavior R46.89 DVT prophylaxis Z29.9 (1) Sepsis Acute respiratory failure type: with hypoxia Sepsis acute organ dysfunction status: with acute organ dysfunction Sepsis type: sepsis due to unspecified organism Severe sepsis acute organ dysfunction type: acute respiratory failure Severe sepsis shock status: unspecified Qualified Code(s): A41.9 - Sepsis, unspecified organism; R65.20 - Severe sepsis without septic shock; J96.01 - Acute respiratory failure with hypoxia
[2020-06-05] MEDS ORDERED: LORazepam 0.5 MG/1 ML VIAL IV PRN (11:27)
[2020-06-05] MEDS ORDERED: HALOPERIDOL LACTATE 5 MG/ML 1 ML VIAL IM ONE (11:30)
[2020-06-05] MEDS ORDERED: REMDESIVIR 100mg: Days 2-5 IV SCH (22:00)
[2020-06-05] MEDS: NSS 30mL Flush, Days 1-5 IV SCH (22:04)
[2020-06-06] MEDS: HALOPERIDOL LACTATE 5 MG/ML 1 ML VIAL IM PRN ×2 (03:24→08:04)
[2020-06-06] MEDS: MoRPHine SULFATE 2 MG/ML CARP IV PRN ×2 (03:24→08:03)
--- NOTE | 2020-06-06 10:00 | Death Pronouncement Note ---
Date of Service June 06, 2020 Pronouncement Note Admission Date Admission Date: June 04, 2020 Date and Time of Date of : 06/06/20 Time of : 08:09 PCOD Preliminary cause of : COVID-19 Contributing Factors (1) COVID-19: (2) Acute respiratory failure with hypoxia: (3) Multifocal pneumonia: (4) Sepsis: (5) Altered mental state: (6) Elevated troponin: (7) Dementia: (8) Combative behavior: (9) DVT prophylaxis: Hospital Course Hospital Course: see discharge summary Additional Data Confirmation of : no pulse, no respirations, no heart sounds and pupils fixed and dilated Family: contacted ( called over the phone) Attending/PCP notified?: Yes Attending physician: Oscar Burgess, DO Was code activated?: No Autopsy requested?: No greige goods examiner notified?: No Organ bank notified?: No Advance directives: Yes Coding Level of Care Code None Diagnoses COVID-19 U07.1 Acute respiratory failure with hypoxia J96.01 Multifocal pneumonia J18.9 Sepsis A41.9; R65.20; J96.01 Acute respiratory failure type: with hypoxia Sepsis acute organ dysfunction status: with acute organ dysfunction Sepsis type: sepsis due to unspecified organism Severe sepsis acute organ dysfunction type: acute respiratory failure Severe sepsis shock status: unspecified Altered mental state R41.82 Elevated troponin R77.8 Dementia F03.90 Combative behavior R46.89 DVT prophylaxis Z29.9
--- NOTE | 2020-06-06 10:04 | Discharge Summary ---
Date of Service June 06, 2020 Admission HPI Per Admitting Provider Buffy Betancourt is an 89 year old female with dementia who presents from [employer] [facility] [employer] to the ER with altered mental state. Unable to get any history from the patient. Discussed with nurse at [facility] who reports the patient was diagnosed with COVID-19 on May 29 when she was asymptomatic at this time. However she has been getting increasingly less mobile since diagnosis and yesterday was more lethargic. Today she was alerted by nursing assistants that the patient was found appearing dusky, neck extended with O2 sats 83% on room air. Unable to get her O2 sats greater than 94% with nasal ca nnula and therefore started on a non-rebreather. She reportedly has a POLST form for full code however this could not be found at the present time. Her was called and told the nursing staff at [facility] that he wanted everything done therefore was transferred to the ER for further management. Baseline - prior to COVID-19 diagnosis could use walker with assistance. Mostly uses a wheelchair and uses her feet to pedal around. Confused and not orientated x3 chronically with occasional deliruim. Able to answer simple questions. Did not take her usual medications this morning. I discussed her code status with her and wishes to make her not for resuscitation or intubation at the current time. Gives broad authorization to make decision we feel are in her best interest and I explained these decisions are individualized. In the ER CXR concerning for multifocal pneumonia, procalcitonin elevated therefore recommended to start Vancomycin and cefepime to cover for bacterial PNA. Principal Diagnosis COVID 19 pneumonia Discharge Exam no pulse, no respirations, no heart sounds, no breath sounds, pupils fixed, unresponsive Discharge Data Allergies Allergy/AdvReac Type Severity Reaction Status Date / Time alendronate sodium Allergy Unknown Verified 06/04/20 14:34 ibuprofen Allergy Unknown Verified 06/04/20 14:34 simvastatin [From Zocor] Allergy Unknown Verified 06/04/20 14:34 pravastatin [From Pravachol] AdvReac Unknown Verified 06/04/20 14:34 rosuvastatin [From Crestor] AdvReac Unknown Verified 06/04/20 14:34 Consultations 06/04/20 14:11 ED Decision to Admit Stat Hospital Course (1) COVID-19: Positive test on 05/29 @ [facility]. Dexamethasone 6mg IV daily no role for remdesivir as patient is not even compliant with oxygen patient was made comfort measures she peacefully on 06/06/20 at 809am notified (2) Acute respiratory failure with hypoxia: Aim O2 sats > 90%. Secondary to COVID-19 + possible bacterial multifocal PNA. respiratory distress on 06/05, pulling off oxygen required sedation just to keep oxygen in place, still did not work updated , he agrees that he does not want her uncomfortable, he is okay with sedating her and comfort measures he understands grave prognosis given her dementia no escalation of care, he confirms she is a DNI see above (3) Multifocal pneumonia: Follow-up blood cultures MRSA nares swab is NEGATIVE, STOP vancomycin stop Cefepime, comfort care see above (4) Sepsis: Lactate WNL 1L NSS bolus given in ER KCL 10 meq x2 now stopped fluids (5) Altered mental state: Currently unsafe to eat or drink likely delirium on top of dementia, typically on olanzapine give Ativan 0.5mg and Haldol 2mg IM to try to sedate patient, make her more compliant (6) Elevated troponin: Suspect demand-ischemia, no further work up planned (7) Dementia: High risk of delirium and combative behavior per prior notes. haldol and Ativan IV today to sedate, she is combative at this time (8) Combative behavior: Haldol 2mg IV and Ativan 0.5mg IV now, morphine now for pain/respiratory distress (9) DVT prophylaxis: Heparin 7500 SQ BID (increased dosing due to COVID-19 diagnosis) Total Time Total Time Spent Total Time Spent (In Minutes): 20 minutes Total Time Includes: Examination of the Patient Discharge Plan Discharge Items Reason For Visit: COVID 19, MULTIFOCAL Follow-up/Referrals: Jyoti Fields [Primary Care Provider] - Medications and DC Order Prescriptions: No Action latanoprost 0.005 % Drops 1 drp OPB HS RF: 0 trazodone 50 mg Tablet 50 mg PO QAM RF: 0 lorazepam 0.5 mg Tablet 0.5 mg PO TID PRN (Reason: Anxiety) RF: 0 magnesium hydroxide [Milk of Magnesia] 400 mg/5 mL Suspension 30 ml PO DAILY PRN (Reason: Constipation) RF: 0 bisacodyl [Dulcolax (bisacodyl)] 10 mg Suppository 10 mg MD DAILY PRN (Reason: Constipation) RF: 0 Enema 19-7 gram/118 mL Enema 118 ml MD DAILY PRN (Reason: Constipation) RF: 0 trazodone 50 mg tablet 150 mg PO QPM RF: 0 olanzapine 10 mg tablet 5 mg PO BID RF: 0 aspirin 81 mg Tablet,Delayed Release (Dr/Ec) 81 mg PO BID RF: 0 acetaminophen [Tylenol Extra Strength] 500 mg Tablet 500 mg PO BID PRN (Reason: Pain) RF: 0 docusate sodium 100 mg Capsule 100 mg PO BID RF: 0 Admission Data Admit Date/Time: 06/04/20 15:49 Attending Provider: Oscar Burgess Admit Provider: Imer Gonzalez Primary Care Provider: Jyoti Fields Other Providers: Imer Gonzalez ; Gricel Fields Level of Care Code D/C Day Management <30 mins Diagnoses COVID-19 U07.1 Acute respiratory failure with hypoxia J96.01 Multifocal pneumonia J18.9 Sepsis A41.9; R65.20; J96.01 Acute respiratory failure type: with hypoxia Sepsis acute organ dysfunction status: with acute organ dysfunction Sepsis type: sepsis due to unspecified organism Severe sepsis acute organ dysfunction type: acute respiratory failure Severe sepsis shock status: unspecified Altered mental state R41.82 Elevated troponin R77.8 Dementia F03.90 Combative behavior R46.89 DVT prophylaxis Z29.9
== END 2020-06-06 10:37 | disposition expired | DRG 177 ==
LOC: EDUNIT# 12:25 → ED 12:25 → 2E 15:49 → SUATTDRO 15:49 → 2E 16:39